=== PATIENT | male | born 1990 | race Caucasian/White ===

== ENCOUNTER 2021-03-31 21:42 | Emergency (ER) | payer BC, SELFPAY ==
[2021-03-31 21:55] VITALS: BP 149/87; RESP 16; TEMP 36.4; O2SAT 84
--- NOTE | 2021-04-01 02:26 | ED.GENADULT ---
HPI - General Adult General Chief complaint: Headache Stated complaint: mouth pain Time Seen by Provider: 04/01/21 01:40 History of Present Illness HPI narrative: Patient is a 30-year-old male with history of MS and trigeminal neuralgia that presents ER with left-sided facial pain consistent with his trigeminal neuralgia pain. Reports he has been having a flare over the last 3 weeks but worsening in the last 1 week. He has been to multiple ERs to receive treatment and is becoming frustrated that there is nothing to be done. Reports he waited at [facility] and was never seen due to such a long wait. He reports he has been taking his home baclofen, gabapentin, and Tegretol that been prescribed by his neurologist who is located in [facility]. Patient is currently living here with a friend because his family disowned him last month. He does report stress from this. He does endorse some depression but no SI. Patient reports he has not been referred for neurologic management of his discomfort. Patient is having no other focal deficits related to his trigeminal neuralgia including slurred speech, muscle spasm, or focal weakness in extremity. Related Data Home Medications Medication Instructions Recorded Confirmed baclofen mg 04/01/21 carbamazepine 04/01/21 gabapentin 04/01/21 hydrocodone-acetaminophen 04/01/21 hydrocodone-acetaminophen 04/01/21 04/01/21 potassium citrate meq PO 04/01/21 Allergies Allergy/AdvReac Type Severity Reaction Status Date / Time No Known Allergies Allergy Verified 04/01/21 01:42 Review of Systems Review of Systems: All systems reviewed & are unremarkable except as noted in HPI and below Constitutional: Constitutional: Denies chills and Denies fever(s) Neurologic: Denies headache(s), Denies focal weakness, Denies numbness and Denies weakness Comments: Shooting pain left face Psychiatric: Psychiatric: Reports depression and Denies suicidal ideation PMFSH Past Medical History Medical History (Updated 04/01/21 @ 02:30 by Kobe Garcia MD) Multiple sclerosis Trigeminal neuralgia Surgical History Surgical History (Updated 04/01/21 @ 02:28 by Kobe Garcia MD) History of inguinal hernia repair Exam Narrative: Exam Narrative: GENERAL: Well-appearing, well-nourished, and in no acute distress. HEAD: Normocephalic, atraumatic. EYES: PERRL and EOMI. ENT: Mucous membranes moist. No pharyngeal erythema or tonsillar exudate, no tonsillar hypertrophy, uvula midline nonedematous. NECK: Supple. CHEST: Clear to auscultation. No respiratory distress. HEART: Regular rate and rhythm. Normal peripheral pulses. NEURO: Facial droop. No slurred speech. Alert and oriented x3. PSYCH: Normal mood and affect. Course Course Emergency Course: We will give IM shot of morphine. Discharge home with the name of neurology here and a small prescription of [place]. Discussed with patient that he would be best served getting neurosurgery referral by his primary care physician for definitive management of trigeminal neuralgia. Medication review shows patient received 8 tabs of [place] on the 03/24. Does not appear he habitually receives narcotic pain medication. Vital Signs Vital signs: Vital Signs Temperature 97.6 F 03/31/21 21:55 Respiratory Rate 16 03/31/21 21:55 Blood Pressure 149/87 H 03/31/21 21:55 Pulse Oximetry 84 L 03/31/21 21:55 Temperature 97.6 F 03/31/21 21:55 Respiratory Rate 16 03/31/21 21:55 Blood Pressure 149/87 H 03/31/21 21:55 Pulse Oximetry 84 L 03/31/21 21:55 Medical Decision Making Vital Signs Vital Signs: Vital Signs Temperature 97.6 F 03/31/21 21:55 Respiratory Rate 16 03/31/21 21:55 Blood Pressure 149/87 H 03/31/21 21:55 Pulse Oximetry 84 L 03/31/21 21:55 Temperature 97.6 F 03/31/21 21:55 Respiratory Rate 16 03/31/21 21:55 Blood Pressure 149/87 H 03/31/21 21:55 Pulse Oximetry 84 L 03/31/21 21:55 Di
[2021-04-01] MEDS: MORPHINE SULFATE (*CRX) 4 MG/ML INJ IM (02:41)
[2021-04-01 03:33] VITALS: BP 156/97; PULSE 76; RESP 12; O2SAT 97
== END 2021-04-01 03:40 | disposition home or self-care (01) ==
PROVIDERS: Emergency Provider Emergency Medicine
DX: G50.0 Trigeminal neuralgia (principal); G35 Multiple sclerosis
CPT/HCPCS: 96372; 99283; J2270

== ENCOUNTER 2021-04-09 07:53 | Emergency (ER) | payer BC, SELFPAY ==
[2021-04-09 08:05] VITALS: BP 156/91; PULSE 90; RESP 16; TEMP 36.2; O2SAT 100
--- NOTE | 2021-04-09 08:20 | ED.GENADULT ---
HPI - General Adult General Chief complaint: Unspecified Stated complaint: trigeminal neuralgia Time Seen by Provider: 04/09/21 08:02 History of Present Illness HPI narrative: Patient is a 30-year-old male with history of MS and trigeminal neuralgia who presents to the ER with left-sided facial pain consistent with his trigeminal neuralgia. Occasionally given some blurring of the vision. He has been taking his home Tegretol, baclofen, and gabapentin. He was recently prescribed [place] for breakthrough pain which she took the last tab of. Reports with the change in weather its caused the pain to flareup again. Reports since his last visit he has been going through the process of transferring paperwork from his primary care doctor Gage Weller to [facility] where he is trying to see a neurologist/neurosurgeon to care for his trigeminal neuralgia. He does not yet have a follow-up appointment scheduled. Related Data Home Medications Medication Instructions Recorded Confirmed baclofen mg 04/01/21 carbamazepine 04/01/21 gabapentin 04/01/21 hydrocodone-acetaminophen 04/01/21 hydrocodone-acetaminophen 04/01/21 04/01/21 potassium citrate meq PO 04/01/21 Allergies Allergy/AdvReac Type Severity Reaction Status Date / Time No Known Allergies Allergy Verified 04/01/21 01:42 Review of Systems Constitutional: Constitutional: Denies chills and Denies fever(s) Musculoskeletal: Musculoskeletal: Denies myalgias, Denies arthralgias and Denies muscle cramps Neurologic: Denies syncope, Denies focal weakness, Denies loss of vision and Reports paresthesias (Left facial pain) PMFSH Past Medical History Medical History (Updated 04/09/21 @ 08:23 by Kobe Garcia MD) Multiple sclerosis Trigeminal neuralgia Surgical History Surgical History (Updated 04/01/21 @ 02:28 by Kobe Garcia MD) History of inguinal hernia repair Exam Narrative: Exam Narrative: GENERAL: Well-appearing, well-nourished, and in no acute distress. HEAD: Normocephalic, atraumatic. EYES: PERRL and EOMI. ENT: Mucous membranes moist. CHEST: Clear to auscultation. No respiratory distress. HEART: Regular rate and rhythm. Normal peripheral pulses. EXTREMITIES: Normal range of motion. No edema. SKIN: Warm, dry, no rash. NEURO: Clear speech, no facial droop. Alert and oriented x3. Course Course Emergency Course: Discussed with the patient given 1 more prescription for [place] but then he would receive no additional prescriptions from the ER. Verbalized understanding. Discharge Plan Discharge Clinical Impression: Left-sided trigeminal neuralgia Patient Disposition: Home, Self-Care Condition: Stable Instructions: Trigeminal Neuralgia (ED) Additional Instructions: Return the ER if you cannot breathe, you cannot swallow, you have focal weakness in an arm or leg, you have additional concerns. Prescriptions: New hydrocodone-acetaminophen 5-325 mg tablet 1 tablet PO Q6H PRN (Reason: pain) Qty: 20 RF: 0 No Action hydrocodone-acetaminophen 5-325 mg tablet RF: 0 baclofen 20 mg tablet RF: 0 carbamazepine 200 mg tablet RF: 0 gabapentin 800 mg tablet RF: 0 hydrocodone-acetaminophen 7.5-325 mg tablet RF: 0 potassium citrate 15 mEq tablet extended release PO RF: 0 hydrocodone-acetaminophen 5-325 mg tablet 1 tablet PO Q6H PRN (Reason: pain) Qty: 20 RF: 0 Follow-up/Referrals: Misbah Haque MD [Physician] - 1 Week PHYSICIAN,[facility] TH[facility]OUGH 12 TEACHER [Primary Care Provider] -
[2021-04-09] MEDS: HYDROcodone/acetaminophen (*CRX) 5-325 MG TABLET 1 TAB PO (08:57)
--- NOTE | 2021-04-09 09:00 | PC.NURSE ---
Pt. reiterating that their disease is called the suicide disease. Pt. was prompted again on questions about suicide and patient is denying any suicidal ideations at this time. ERP is aware.
== END 2021-04-09 09:16 | disposition home or self-care (01) ==
LOC: ANHED 09:02
PROVIDERS: Emergency Provider Emergency Medicine
DX: G50.0 Trigeminal neuralgia (principal)
CPT/HCPCS: 99283; A9270

== ENCOUNTER 2021-11-15 00:40 | Emergency (ER) | payer BC, SELFPAY ==
[2021-11-15 00:45] VITALS: BP 138/82; PULSE 74; RESP 18; TEMP 36.1; O2SAT 99
--- NOTE | 2021-11-15 01:04 | ED.GENADULT ---
HPI - General Adult General Chief complaint: Unspecified Stated complaint: trigeminal neuralgia pain Time Seen by Provider: 11/15/21 00:58 History of Present Illness HPI narrative: Patient 31-year-old gentleman who presents the emergency department with chief complaint of trigeminal neuralgia. The patient reports he has prior history of trigeminal neuralgia and is on oral SSRIs is also been on gabapentin and Tegretol. The patient states that he has seen a neurologist before and reports since the weather change he started having a burning sensation on the right side of his face. Patient reports typically it is on the left side of his face reports that it is worsened with the temperature changes denies nausea vomiting denies fever chills. Related Data Home Medications Medication Instructions Recorded Confirmed baclofen mg 04/01/21 carbamazepine 04/01/21 gabapentin 04/01/21 potassium citrate meq PO 04/01/21 Allergies Allergy/AdvReac Type Severity Reaction Status Date / Time No Known Allergies Allergy Verified 11/15/21 00:48 Review of Systems Review of Systems: A 10 system review of systems was completed on the patient and is negative except for what is stated in the HPI. Nursing and ancillary documentation was reviewed. [facility] Past Medical History Medical History Multiple sclerosis Trigeminal neuralgia Surgical History Surgical History History of inguinal hernia repair Exam Narrative: GENERAL: Well-appearing, well-nourished, and in no acute distress. HEAD: Normocephalic, atraumatic. EYES: PERRLA and EOMI. ENT: Nares clear, no rhinorrhea or epistaxis. Mucous membranes moist. NECK: Supple. CHEST: Clear to auscultation. No respiratory distress. HEART: Regular rate and rhythm. No murmur heard. Normal peripheral pulses. ABDOMEN: Soft, nontender, nondistended, normal active bowel sounds. EXTREMITIES: Normal range of motion. No edema. SKIN: Warm, dry, no rash. NEURO: No focal deficits. Alert and oriented x3. PSYCH: Normal mood and affect. Course Vital Signs Vital signs: Vital Signs Temperature 36.1 C L 11/15/21 00:45 Pulse Rate 74 11/15/21 00:45 Respiratory Rate 18 11/15/21 00:45 Blood Pressure 138/82 11/15/21 00:45 Pulse Oximetry 99 11/15/21 00:45 Temperature 36.1 C L 11/15/21 00:45 Pulse Rate 74 11/15/21 00:45 Respiratory Rate 18 11/15/21 00:45 Blood Pressure 138/82 11/15/21 00:45 Pulse Oximetry 99 11/15/21 00:45 Medical Decision Making Vital Signs Vital Signs: Vital Signs Temperature 36.1 C L 11/15/21 00:45 Pulse Rate 74 11/15/21 00:45 Respiratory Rate 18 11/15/21 00:45 Blood Pressure 138/82 11/15/21 00:45 Pulse Oximetry 99 11/15/21 00:45 Temperature 36.1 C L 11/15/21 00:45 Pulse Rate 74 11/15/21 00:45 Respiratory Rate 18 11/15/21 00:45 Blood Pressure 138/82 11/15/21 00:45 Pulse Oximetry 99 11/15/21 00:45 Discharge Plan Discharge Clinical Impression: Right trigeminal neuralgia Patient Disposition: Home, Self-Care Condition: Stable Instructions: Antibiotic Form, Trigeminal Neuralgia (ED) Prescriptions: New hydrocodone-acetaminophen 5-325 mg tablet 1 tablet PO Q6H PRN (Reason: pain) 3 Days Qty: 12 RF: 0 prednisone 20 mg tablet 40 mg PO DAILY 5 Days Qty: 10 RF: 0 No Action hydrocodone-acetaminophen 5-325 mg tablet 1 tablet PO Q6H PRN (Reason: pain) Qty: 20 RF: 0 baclofen 20 mg tablet RF: 0 carbamazepine 200 mg tablet RF: 0 gabapentin 800 mg tablet RF: 0 potassium citrate 15 mEq tablet extended release PO RF: 0 Follow-up/Referrals: PHYSICIAN,[facility] 1 [facility] 6 TEACHER [Primary Care Provider] - Miles Hanna MD [Physician] - Time of Disposition: :08
[2021-11-15 01:20] VITALS: BP 132/77; PULSE 64; RESP 16; O2SAT 99
[2021-11-15] MEDS: methylPREDNISolone SOD SUCC 125 MG VIAL IM (01:24)
[2021-11-15] MEDS: HYDROcodone/acetaminophen (*CRX) 5-325 MG TABLET 1 TAB PO (01:38)
== END 2021-11-15 01:39 | disposition home or self-care (01) ==
PROVIDERS: Emergency Provider Emergency Medicine
DX: G50.0 Trigeminal neuralgia (principal); G35 Multiple sclerosis
CPT/HCPCS: 96372; 99283; A9270; J2930

== ENCOUNTER 2021-11-23 20:03 | Emergency (ER) | payer BC, SELFPAY ==
[2021-11-23 20:10] VITALS: BP 139/91; PULSE 85; RESP 20; TEMP 36.2; O2SAT 99
--- NOTE | 2021-11-23 21:40 | ED.GENADULT ---
HPI - General Adult General Chief complaint: Unspecified Stated complaint: Neurological issues related to MS Time Seen by Provider: 11/23/21 21:26 History of Present Illness HPI narrative: Patient 31-year-old gentleman who presents the emergency department with chief complaint of electric shocks on his face. Patient reports he has history of MS and also history of trigeminal neuralgia patient was seen in the emergency department about a month ago for similar symptoms was treated with a course of steroids and some [place]. The patient reports that after receiving steroids he felt better but subsequently the symptoms have returned the patient reports he does not have a current neurologist reports his symptoms are worse with movement of his head. Patient denies fever denies chills denies vomiting. The patient denies focal neurological deficit Related Data Home Medications Medication Instructions Recorded Confirmed baclofen mg 04/01/21 carbamazepine 04/01/21 gabapentin 04/01/21 potassium citrate meq PO 04/01/21 Allergies Allergy/AdvReac Type Severity Reaction Status Date / Time No Known Allergies Allergy Verified 11/23/21 20:13 Review of Systems Review of Systems: A 10 system review of systems was completed on the patient and is negative except for what is stated in the HPI. Nursing and ancillary documentation was reviewed. [facility] Past Medical History Medical History Multiple sclerosis Trigeminal neuralgia Surgical History Surgical History History of inguinal hernia repair Exam Narrative: GENERAL: Well-appearing, well-nourished, and in no acute distress. HEAD: Normocephalic, atraumatic. EYES: PERRLA and EOMI. ENT: Nares clear, no rhinorrhea or epistaxis. Mucous membranes moist. NECK: Supple. CHEST: Clear to auscultation. No respiratory distress. HEART: Regular rate and rhythm. No murmur heard. Normal peripheral pulses. ABDOMEN: Soft, nontender, nondistended, normal active bowel sounds. EXTREMITIES: Normal range of motion. No edema. SKIN: Warm, dry, no rash. NEURO: No focal deficits. Alert and oriented x3. PSYCH: Normal mood and affect. Course Vital Signs Vital signs: Vital Signs Temperature 36.2 C L 11/23/21 20:10 Pulse Rate 85 11/23/21 20:10 Respiratory Rate 20 01/23/22 20:10 Blood Pressure 139/91 H 11/23/21 20:10 Pulse Oximetry 99 11/23/21 20:10 Temperature 36.2 C L 11/23/21 20:10 Pulse Rate 85 11/23/21 20:10 Respiratory Rate 11/23/21 20:10 Blood Pressure 139/91 H 11/23/21 20:10 Pulse Oximetry 99 11/23/21 20:10 Medical Decision Making Vital Signs Vital Signs: Vital Signs Temperature 36.2 C L 11/23/21 20:10 Pulse Rate 85 11/23/21 20:10 Respiratory Rate 11/23/21 20:10 Blood Pressure 139/91 H 11/23/21 20:10 Pulse Oximetry 99 11/23/21 20:10 Temperature 36.2 C L 11/23/21 20:10 Pulse Rate 85 11/23/21 20:10 Respiratory Rate 11/23/21 20:10 Blood Pressure 139/91 H 11/23/21 20:10 Pulse Oximetry 99 11/23/21 20:10 Discharge Plan Discharge Clinical Impression: Trigeminal neuralgia Patient Disposition: Home, Self-Care Condition: Stable Instructions: Antibiotic Form, Trigeminal Neuralgia (ED) Additional Instructions: Please follow-up with a neurologist as soon as possible. Prescriptions: New prednisone 20 mg tablet 40 mg PO DAILY 7 Days Qty: 14 RF: 0 No Action hydrocodone-acetaminophen 5-325 mg tablet 1 tablet PO Q6H PRN (Reason: pain) Qty: 20 RF: 0 baclofen 20 mg tablet RF: 0 carbamazepine 200 mg tablet RF: 0 gabapentin 800 mg tablet RF: 0 potassium citrate 15 mEq tablet extended release PO RF: 0 hydrocodone-acetaminophen 5-325 mg tablet 1 tablet PO Q6H PRN (Reason: pain) 3 Days Qty: 12 RF: 0 prednisone 20 m
[2021-11-23] MEDS: methylPREDNISolone SOD SUCC 125 MG VIAL IM (22:17)
[2021-11-23] MEDS: HYDROcodone/acetaminophen (*CRX) 5-325 MG TABLET 1 TAB PO (22:17)
== END 2021-11-23 22:40 | disposition home or self-care (01) ==
LOC: ANHED 22:04
PROVIDERS: Emergency Provider Emergency Medicine
DX: G50.0 Trigeminal neuralgia (principal); G35 Multiple sclerosis
CPT/HCPCS: 96372; 99283; A9270; J2930

== ENCOUNTER 2022-02-12 18:33 | Emergency (ER) | payer BC, SELFPAY ==
[2022-02-12 18:40] VITALS: BP 149/90; PULSE 80; RESP 18; TEMP 36.6; O2SAT 97
--- NOTE | 2022-02-12 18:56 | ED.GENADULT ---
HPI - General Adult General Chief complaint: Unspecified Stated complaint: severe pain Time Seen by Provider: 02/12/22 18:56 Source: patient Mode of arrival: ambulatory Limitations: no limitations History of Present Illness HPI narrative: this is a 31-year-old gentleman with a history trigeminal neuralgia currently having a painful episode affecting the left side of his face is currently on Tegretol and was recently on a steroid for bronchitis about 2 to 3 weeks ago. Currently there is no fever chills no blurry vision no headache no neck pain no chest pain no shortness of breath. Onset (ago): day(s) Location: face Radiation: non-radiation Severity: severe Severity scale (1-10): 10 Quality: burning and stabbing Pain Consistency: constant Relieving factors: none Related Data Home Medications Medication Instructions Recorded Confirmed carbamazepine 200 mg PO AC 04/01/21 02/12/22 gabapentin 04/01/21 duloxetine 60 mg PO DAILY 02/12/22 02/12/22 Allergies Allergy/AdvReac Type Severity Reaction Status Date / Time No Known Allergies Allergy Verified 02/12/22 18:56 Review of Systems Review of Systems: All systems reviewed & are unremarkable except as noted in HPI and below PMFSH Past Medical History Medical History Multiple sclerosis Trigeminal neuralgia Surgical History Surgical History History of inguinal hernia repair Exam Const: General: cooperative, healthy appearing, comfortable, no acute distress and well developed HENMT: Head: normal to inspection Head images: 1. Tender left side of face with palpation Ears: hearing grossly normal bilaterally General nose exam: Normal external nose present Face and sinus: normal facial exam Mouth: Yes Normal oral and palatal mucosa present Throat: posterior oropharynx normal Eyes: General: appearance normal, both eyes and all related structures Neck: Neck: normal visual inspection, full ROM, no lymphadenopathy and no meningeal signs Chest: Chest palpation & inspection: normal inspection of the chest Resp: Effort & Inspection: normal respiratory effort and able to speak in complete sentences Cardio: Jugular venous distension: no JVD Palpation: normal PMI Rate: regular rate Rhythm: regular rhythm Back/Spine/Pelvis: Back: no CVA tenderness Cervical Spine: normal cervical lordosis Skin: General skin exam: normal color and no rashes or lesions noted Neuro: General: oriented to person, oriented to place and oriented to time Psych: Appearance: grossly normal and well kempt Course Course Emergency Course: patient received a dose of IM morphine 4mg along with IM Depo-Medrol 80mg with moderate relief of his symptoms. Vital Signs Vital signs: Vital Signs Temperature 36.6 C 02/12/22 18:40 Pulse Rate 80 02/12/22 18:40 Respiratory Rate 18 02/12/22 18:40 Blood Pressure 149/90 H 02/12/22 18:40 Pulse Oximetry 97 02/12/22 18:40 Temperature 36.6 C 02/12/22 18:40 Pulse Rate 80 02/12/22 18:40 Respiratory Rate 18 02/12/22 18:40 Blood Pressure 149/90 H 02/12/22 18:40 Pulse Oximetry 97 02/12/22 18:40 Medical Decision Making Vital Signs Vital Signs: Vital Signs Temperature 36.6 C 02/12/22 18:40 Pulse Rate 80 02/12/22 18:40 Respiratory Rate 18 02/12/22 18:40 Blood Pressure 149/90 H 02/12/22 18:40 Pulse Oximetry 97 02/12/22 18:40 Temperature 36.6 C 02/12/22 18:40 Pulse Rate 80 02/12/22 18:40 Respiratory Rate 18 02/12/22 18:40 Blood Pressure 149/90 H 02/12/22 18:40 Pulse Oximetry 97 02/12/22 18:40 Critical Care Time Critical Care Time Critical Care Time: No Discharge Plan Discharge Clinical Impression: Trigeminal neuralgia Patient Disposition: Home, Self-Care Condition: Stable Instructions: Antibiotic Form Additional Instructions: take medicine
[2022-02-12] MEDS: methylPREDNISolone ACETATE 40 MG/ML VIAL 80 MG IM (19:13)
[2022-02-12] MEDS: MORPHINE SULFATE (*CRX) 4 MG/ML INJ IM (19:16)
[2022-02-12 19:43] VITALS: TEMP 36.4
[2022-02-12 19:44] VITALS: BP 154/98; PULSE 72; RESP 18; TEMP 36.4; O2SAT 98
== END 2022-02-12 19:48 | disposition home or self-care (01) ==
PROVIDERS: Emergency Provider Emergency Medicine
DX: G50.0 Trigeminal neuralgia (principal)
CPT/HCPCS: 96372; 99284; J1030; J2270

== ENCOUNTER 2022-05-04 10:49 | Emergency (ER) | payer BC, SELFPAY ==
[2022-05-04 11:03] VITALS: BP 130/88; PULSE 73; RESP 16; TEMP 36.9; O2SAT 95
--- NOTE | 2022-05-04 11:12 | ED.GENADULT ---
HPI - General Adult General Chief complaint: Unspecified Stated complaint: FACIAL PAIN Source: patient Mode of arrival: ambulatory Limitations: no limitations History of Present Illness HPI narrative: this is a [age]-year-old male that presents with a history of trigeminal neuralgia is currently on medication, but is having intense pain left facial area no new symptoms no blurry vision no fever chills no shortness of breath no nausea vomiting no chest pain. Onset (ago): day(s) Location: face Radiation: non-radiation Severity: moderate Severity scale (1-10): 7 Quality: burning Pain Consistency: constant Related Data Home Medications Medication Instructions Recorded Confirmed carbamazepine 200 mg tablet 200 mg PO AC 04/01/21 05/04/22 gabapentin 800 mg tablet 800 mg PO DAILY 04/01/21 05/04/22 duloxetine 60 mg capsule,delayed 60 mg PO DAILY 02/12/22 05/04/22 release Allergies Allergy/AdvReac Type Severity Reaction Status Date / Time No Known Allergies Allergy Verified 05/04/22 11:07 Review of Systems Review of Systems: All systems reviewed & are unremarkable except as noted in HPI and below Eyes: Eyes: Reports as per HPI ENT: Reports system reviewed and no additional complaints, except as documented Cardiovascular: Cardiovascular: Reports as per HPI [facility] Past Medical History Medical History Multiple sclerosis Trigeminal neuralgia Surgical History Surgical History History of inguinal hernia repair Exam Const: General: cooperative, healthy appearing, comfortable and no acute distress HENMT: Head: normal to inspection Ears: hearing grossly normal bilaterally General nose exam: Normal external nose present Face and sinus: other ( Left facial droop) Mouth: Yes Normal oral and palatal mucosa present Teeth and gingiva: dentition normal Throat: posterior oropharynx normal Eyes: General: appearance normal, both eyes and all related structures Periorbital: periorbital findings normal Eyelids: eyelids normal Neck: Neck: normal visual inspection, full ROM, no lymphadenopathy and no meningeal signs Chest: Chest palpation & inspection: normal inspection of the chest Resp: Effort & Inspection: normal respiratory effort and able to speak in complete sentences Cardio: Jugular venous distension: no JVD Palpation: normal PMI Rate: regular rate Rhythm: regular rhythm GI: Inspection: normal to inspection Auscultation: normal bowel sounds Urinary Catheter: Urinary Catheter: patent and draining Back/Spine/Pelvis: Cervical Spine: normal cervical lordosis Skin: General skin exam: normal color and no rashes or lesions noted Neuro: General: oriented to person, oriented to place and oriented to time Extrem: General: normal to inspection, full ROM and capillary refill normal Psych: Appearance: grossly normal and well kempt Course Course Emergency Course: patient received a shot of Toradol and Depo-Medrol. Vital Signs Vital signs: Vital Signs Temperature 36.9 C 05/04/22 11:03 Pulse Rate 73 05/04/22 11:03 Respiratory Rate 16 05/04/22 11:03 Blood Pressure 130/88 05/04/22 11:03 Pulse Oximetry 95 05/04/22 11:03 Oxygen Delivery Room Air 05/04/22 11:03 Temperature 36.9 C 05/04/22 11:03 Pulse Rate 73 05/04/22 11:03 Respiratory Rate 16 05/04/22 11:03 Blood Pressure 130/88 05/04/22 11:03 Pulse Oximetry 95 05/04/22 11:03 Oxygen Delivery Room Air 05/04/22 11:03 Medical Decision Making Vital Signs Vital Signs: Vital Signs Temperature 36.9 C 05/04/22 11:03 Pulse Rate 73 05/04/22 11:03 Respiratory Rate 16 05/04/22 11:03 Blood Pressure 130/88 05/04/22 11:03 Pulse Oximetry 95 05/04/22 11:03 Oxygen Delivery Room Air 05/04/22 11:03 Temperature 36.9 C 05/04/22 11:03 Pulse Rate 73 05/04/22 11:03 Respiratory Ra
[2022-05-04] MEDS: KETOROLAC (*BKC) 60 MG/2 ML VIAL IM (11:23)
[2022-05-04] MEDS: methylPREDNISolone ACETATE 40 MG/ML VIAL 80 MG IM (11:24)
[2022-05-04 11:29] VITALS: BP 130/88; PULSE 73; RESP 16; TEMP 36.9; O2SAT 95
== END 2022-05-04 11:32 | disposition home or self-care (01) ==
PROVIDERS: Emergency Provider Emergency Medicine
DX: G50.0 Trigeminal neuralgia (principal)
CPT/HCPCS: 96372; 99284; J1030; J1885

== ENCOUNTER 2022-05-27 10:23 | Outpatient (CLI) | payer BC, SELFPAY ==
[2022-05-27 10:33] LABS: Hematocrit 46.8 % (40.0-54.0); Hemoglobin 15.9 g/dL (14.0-18.0); Mean Corpuscular Hemoglobin 30.8 pg (27.0-31.0); Mean Corpuscular Volume 90.7 fL (78.0-102.0); Mean Platelet Volume 11.3 fl (8.7-11.0); Platelet Count Result 228 K/mm3 (150-420); Red Blood Count 5.16 M/mm3 (4.70-6.10); Red Cell Distribution Width 13.5 % (11.6-14.4); White Blood Count 8.8 K/mm3 (4.8-10.8)
[2022-05-27 11:27] LABS: Alanine Aminotransferase 45 U/L (16-63); Albumin Level 4.3 g/dL (3.4-5.0); Alkaline Phosphatase 108 U/L (46-116); Anion Gap 7 mmol/L (8-16); Aspartate Amino Transferase 18 U/L (15-37); Bilirubin,Total 0.4 mg/dL (0.00-1.00); Blood Urea Nitrogen 18 mg/dL (7-18); Calcium 9.3 mg/dL (8.5-10.1); Carbon Dioxide 27 mmol/L (21-32); Chloride 106 mmol/L (98-108); Estimated Glomerular Filt Rate > 60; Folic Acid 19.4 ng/mL (8.6->20); Glucose 104 mg/dL (70-99); Magnesium 2.2 mg/dL (1.8-2.4); Osmolality Calculated 291 mOsm/kg (285-295); Potassium 4.2 mmol/L (3.5-5.1); Sodium 140 mmol/L (136-145); Total Protein 7.1 g/dL (6.4-8.2); Vitamin B12 835 pg/mL (193-986)
[2022-05-27 11:34] LABS: Thyroid Stimulating Hormone Reflex 0.91 u/IU/mL (0.36-3.74)
== END 2022-05-27 10:24 | disposition home or self-care (01) ==
LOC: CHSLAB 10:24
PROVIDERS: PCP Family Medicine; Visit Provider Family Medicine
DX: G35 Multiple sclerosis (principal); E11.9 Type 2 diabetes mellitus without complications; E53.8 Deficiency of other specified B group vitamins
CPT/HCPCS: 36415; 80053; 82607; 82746; 83735; 84443; 85027

== ENCOUNTER 2022-05-31 15:53 | Emergency (ER) | payer BC, SELFPAY ==
[2022-05-31 16:01] VITALS: BP 128/84; PULSE 80; RESP 18; TEMP 36.4; O2SAT 97
--- NOTE | 2022-05-31 16:29 | ED.DENTAL ---
HPI - Dental/Oral General Chief complaint: Dental/Oral Stated complaint: broken tooth-pain Time Seen by Provider: 05/31/22 15:57 Source: patient and RN notes reviewed Mode of arrival: ambulatory Limitations: no limitations History of Present Illness HPI Narrative: left upper and lower molar toothaches x worse this PM. Complaint: tooth pain Location: Tooth # (16, 17) Onset (ago): day(s) (1) Duration: constant Severity: mild Severity scale (1-10): 4 Relieving factors: nothing Exacerbating factors: chewing Context: history of dental caries Associated symptoms: other (known trigeminal neuralgia on Cymbalta) Treatment prior to arrival: none Related Data Home Medications Medication Instructions Recorded Confirmed duloxetine 60 mg capsule,delayed 60 mg PO DAILY 02/12/22 05/31/22 release aripiprazole 5 mg tablet (Abilify) 5 mg PO QHS 05/27/22 05/31/22 Allergies Allergy/AdvReac Type Severity Reaction Status Date / Time No Known Allergies Allergy Verified 05/27/22 08:17 Review of Systems Review of Systems: All systems reviewed & are unremarkable except as noted in HPI and below Constitutional: Constitutional: Reports no additional constitutional complaints Eyes: Eyes: Reports no additional eye complaints ENT: Reports system reviewed and no additional complaints, except as documented Comments: toothache Cardiovascular: Cardiovascular: Reports no additional cardiovascular complaints Respiratory: Respiratory: Reports no additional respiratory complaints Gastrointestinal: Gastrointestinal: Reports no additional gastrointestinal complaints Musculoskeletal: Musculoskeletal: Reports no additional musculoskeletal complaints Integumentary/Breasts: Skin/Breast: Reports system reviewed and no additional complaints, except as docu Neurologic: Reports system reviewed and no additional complaints, except as documented Psychiatric: Psychiatric: Reports no additional psychiatric complaints Endocrine: Endocrine: Reports no additional endocrine complaints Hematologic/Lymphatic: Hematologic/Lymphatic: Reports no additional hematologic/lymphatic complaints Allergic/Immunologic: Allergic/Immunologic: Reports no additional allergic/immunologic complaints [facility] Past Medical History Medical History Multiple sclerosis Toothache Trigeminal neuralgia Surgical History Surgical History History of inguinal hernia repair Social History Social History Smoking packs per day: 1 Smoking cigarettes per day: 20.0 Years smoked: 15 Smoking pack-years: 15.00 Smoking status: Current every day smoker Tobacco type: cigarettes Exam Const: General: healthy appearing and no acute distress Nutritional Appearance: well nourished Orientation/consciousness: patient oriented x3 Limitations: no limitations HENMT: Head: normal to inspection Ears: external ears normal, TM's normal bilaterally and EAC's normal General nose exam: Normal external nose present and Normal nares present Face and sinus: normal facial exam and sinuses nontender Mouth: Yes Normal oral and palatal mucosa present and Yes moist mucous membranes Teeth and gingiva: abnormal tooth and associated gingiva (multiple carious teeth. no acute gum redness, swelling or pus.) Throat: posterior oropharynx normal Eyes: Conjunctivae: conjunctivae normal Pupils: Equal, round and reactive pupils present EOM: EOMs intact bilaterally Neck: Neck: normal visual inspection, no lymphadenopathy and no meningeal signs Chest: Chest palpation & inspection: normal inspection of the chest Resp: Effort & Inspection: normal respiratory effort Auscultation: clear to auscultation bilaterally Cardio: Rate: regular rate Rhythm: regular rhythm GI: GI Palp: Yes Soft to palpation and No Tenderness to palpatio
[2022-05-31] MEDS: KETOROLAC (*BKC) 60 MG/2 ML VIAL IM (16:42)
[2022-05-31] MEDS: cefTRIAXone 1 GM, LIDOCAINE HCL 1% LOCAL INJ 2.1 ML IM (16:42)
[2022-05-31 16:46] VITALS: BP 143/78; PULSE 78; RESP 20; TEMP 36.5; O2SAT 94
== END 2022-05-31 17:00 | disposition home or self-care (01) ==
PROVIDERS: Emergency Provider Emergency Medicine; PCP Family Medicine
DX: K08.89 Other specified disorders of teeth and supporting structures (principal); K02.9 Dental caries, unspecified
CPT/HCPCS: 96372; 99284; J0696; J1885

== ENCOUNTER 2022-07-11 17:49 | Emergency (ER) | payer BC, SELFPAY ==
--- NOTE | ~2022-07-11 | CT_ITS ---
EXAMINATION: CT abdomen pelvis wo con DATE: 07/11/2022 18:35 INDICATION: LOWER ABD/GROIN PAIN, HEMATURIA TECHNIQUE: Computed tomography (CT) of the abdomen and pelvis was performed without intravenous contr ast. Automated exposure control and iterative reconstruction technique were employed. The dose-length product was 1346.91 mGy-cm. COMPARISON: 07/22/2005. FINDINGS: Lower thorax: Unremarkable Liver: Normal. Biliary/Gallbladder: Gallbladder is normal. No bile duct dilation. Pancreas: No mass or duct dilation. Spleen: Normal. Adrenals:No mass. Kidneys: Bilateral nonobstructive renal calculi. 4 mm calcification in the right UPJ. Mild right pelv iectasis. GI tract: No small or large bowel dilation. Normal appendix. Mesentery/Peritoneum: No ascites, mass, or free air. Retroperitoneum: No mass. Pelvis: Pelvic organs are within normal limits. Soft Tissues: Small uncomplicated fat-containing umbilical and left inguinal hernias Bones: No acute osseous finding. IMPRESSION: 4 mm right UPJ stone causing mild right obstructive uropathy. Reviewed, dictated and finalized at location K.
[2022-07-11 17:55] VITALS: BP 140/79; PULSE 74; RESP 18; TEMP 35.9; O2SAT 98
[2022-07-11] MEDS: SODIUM CHLORIDE 0.9% IV 1,000 ML 999 ML IV CONT (18:34)
[2022-07-11] MEDS: KETOROLAC 30 MG/ML VIAL (*BKC) IV PUSH (18:35)
[2022-07-11 18:45] LABS: Basophils Absolute Auto 0.05 K/mm3 (0.00-0.10); Basophils Percent Auto 0.5 % (0.0-1.0); Eosinophils Absolute Auto 0.13 K/mm3 (0.02-0.50); Eosinophils Percent Auto 1.3 % (1.0-6.0); Hematocrit 46.5 % (40.0-54.0); Immature Granulocyte Absolute 0.03 K/mm3 (0.00-0.00); Immature Granulocyte Percent A 0.3 % (0.0-0.0); Lymphocytes Absolute Auto 2.47 K/mm3 (1.10-4.50); Lymphocytes Percent Auto 25.4 % (18.0-42.0); Mean Corpuscular HGB Conc 34.4 g/dL (32.0-36.0); Mean Corpuscular Hemoglobin 31.1 pg (27.0-31.0); Mean Corpuscular Volume 90.3 fL (78.0-102.0); Mean Platelet Volume 11.8 fl (8.7-11.0); Monocytes Absolute Auto 0.86 K/mm3 (0.10-0.90); Monocytes Percent Auto 8.8 % (2.0-11.0); Neutrophils Absolute Auto 6.2 K/mm3 (1.7-7.2); Neutrophils Percent Auto 63.7 % (50.0-70.0); Platelet Count Result 229 K/mm3 (150-420); Red Blood Count 5.15 M/mm3 (4.70-6.10); Red Cell Distribution Width 13.8 % (11.6-14.4); White Blood Count 9.7 K/mm3 (4.8-10.8)
[2022-07-11 18:47] LABS: Add Urine Microscopic? YES; Bilirubin Urine Negative (Negative); Blood Urine 3+ (Negative); Color Urine Red (Yellow); Glucose Urine UA Negative (Negative); Ketones Urine Negative (Negative); Leukocyte Esterase Ur Negative (Negative); Nitrate Urine Negative (Negative); Protein Urine 1+ (Negative); pH Urine 6.5 (5.0-8.0)
--- NOTE | 2022-07-11 18:51 | ED.ABDPAIN ---
HPI - Abdominal Pain General Chief Complaint: Urogenital-Male Stated Complaint: blood in urine/pain Source: patient Mode of arrival: ambulatory Limitations: no limitations History of Present Illness HPI narrative: this is a 32-year-old gentleman with history of kidney stones present with some suprapubic and right groin pain it started earlier today has been having episodes of hematuria currently no fever chills no flank pain no nausea or vomiting, patient rates his pain at about 8/10. There is no diarrhea or constipation no fever chills no shortness of breath or chest pain. MD elicited complaint: abdominal pain Severity: moderate Pain scale (0-10): 8 Quality: sharp Radiation: suprapubic Migration to: no migration Exacerbating factors: nothing Relieving factors: nothing Related Data Home Medications Medication Instructions Recorded Confirmed duloxetine 60 mg capsule,delayed 60 mg PO DAILY 07/11/22 07/11/22 release Allergies Allergy/AdvReac Type Severity Reaction Status Date / Time No Known Allergies Allergy Verified 05/27/22 08:17 Review of Systems Review of Systems: All systems reviewed & are unremarkable except as noted in HPI and below PMFSH Past Medical History Medical History Multiple sclerosis Toothache Trigeminal neuralgia Surgical History Surgical History History of inguinal hernia repair Social History Social History Smoking packs per day: 1 Smoking cigarettes per day: 20.0 Years smoked: 15 Smoking pack-years: 15.00 Smoking status: Current every day smoker Tobacco type: cigarettes Exam Const: General: healthy appearing and no acute distress Limitations: no limitations HENMT: Head: normal to inspection Face and sinus: normal facial exam Mouth: Yes Normal oral and palatal mucosa present Eyes: Conjunctivae: conjunctivae normal EOM: EOMs intact bilaterally Direct Ophthalmoscopy: no photophobia Neck: Neck: normal visual inspection, no lymphadenopathy and no meningeal signs Chest: Chest palpation & inspection: normal inspection of the chest Resp: Effort & Inspection: normal respiratory effort Auscultation: clear to auscultation bilaterally Cardio: Rate: regular rate Rhythm: regular rhythm GI: GI Palp: Yes Soft to palpation and Yes Tenderness to palpation present (GI) Auscultation: normal bowel sounds Urinary Catheter: Urinary Catheter: urine red Back/Spine/Pelvis: Back: no CVA tenderness Skin: General skin exam: normal color Rashes: no rashes Neuro: General: patient oriented x3, moves all extremities, no meningeal signs and no focal motor deficits Extrem: General: normal to inspection, no clubbing, cyanosis or edema and no pedal edema Psych: Mental Status: mental status grossly normal Affect: normal affect Attitude: cooperative Course Course Emergency Course: CT scan reviewed with patient and shows a 4mm stone at the UPJ causing mild obstruction, patient received IV fluids and IV Toradol and reassessment patient's symptoms have improved. Labs reviewed and UA reviewed with patient. Vital Signs Vital signs: Vital Signs Temperature 35.9 C L 07/11/22 17:55 Pulse Rate 74 07/11/22 17:55 Respiratory Rate 18 07/11/22 17:55 Blood Pressure 140/79 07/11/22 17:55 Pulse Oximetry 98 07/11/22 17:55 Oxygen Delivery Room Air 07/11/22 17:55 Temperature 35.9 C L 07/11/22 17:55 Pulse Rate 74 07/11/22 17:55 Respiratory Rate 18 07/11/22 17:55 Blood Pressure 140/79 07/11/22 17:55 Pulse Oximetry 98 07/11/22 17:55 Oxygen Delivery Room Air 07/11/22 17:55 MDM - Abdominal Pain Lab Data Result diagrams: 07/11/22 18:40 07/11/22 18:40 Labs: Lab Results 07/11/22 07/11/22 07/11/22 Range/Units 18:40 18:40 18:40 WBC 9.7 (4
[2022-07-11 18:52] LABS: Appearance Urine Cloudy (Clear)
[2022-07-11 18:53] LABS: RBC Urine >75 /hpf (0-2)
[2022-07-11 19:02] LABS: Alanine Aminotransferase 59 U/L (16-63); Albumin Level 4.1 g/dL (3.4-5.0); Alkaline Phosphatase 105 U/L (46-116); Anion Gap 9 mmol/L (8-16); Aspartate Amino Transferase 24 U/L (15-37); Bilirubin,Total 0.5 mg/dL (0.00-1.00); Blood Urea Nitrogen 17 mg/dL (7-18); Carbon Dioxide 27 mmol/L (21-32); Chloride 102 mmol/L (98-108); Estimated CRCL calculation 100 ml/min; Estimated Glomerular Filt Rate > 60; Glucose 89 mg/dL (70-99); Lipase 105 U/L (73-393); Osmolality Calculated 286 mOsm/kg (285-295); Potassium 3.7 mmol/L (3.5-5.1); Sodium 138 mmol/L (136-145); Total Protein 7.1 g/dL (6.4-8.2); Troponin I 7.4 ng/L (0.00-60.4)
[2022-07-11 19:03] LABS: Prothrombin Time 10.5 Seconds (9.50-12.10)
[2022-07-11 19:25] VITALS: BP 125/67; PULSE 63; RESP 16; TEMP 36.6; O2SAT 99
[2022-07-11] MEDS: MORPHINE SULFATE (*CRX) 4 MG/ML INJ IV PUSH (19:25)
== END 2022-07-11 19:40 | disposition home or self-care (01) ==
PROVIDERS: Emergency Provider Emergency Medicine; PCP Family Medicine
DX: N20.1 Calculus of ureter (principal)
CPT/HCPCS: 36415; 74176; 80053; 81001; 83605; 83690; 84484; 85025; 85610; 85730; 96361; 96374; 96375; 99284; J1885; J2270; J7030

== ENCOUNTER 2022-07-20 17:15 | Outpatient (CLI) | payer BC, SELFPAY | END 2022-07-20 17:16 | disposition home or self-care (01) | LOC: CHSLAB 17:18 | PROVIDERS: PCP Family Medicine; Visit Provider Family Medicine | DX: N20.9 Urinary calculus, unspecified (principal) | CPT/HCPCS: 82365; 88300 ==

== ENCOUNTER 2023-12-05 08:39 | Emergency (ER) | payer BC, SELFPAY ==
[2023-12-05 08:50] VITALS: BP 140/95; PULSE 79; RESP 16; TEMP 36.4; O2SAT 98
--- NOTE | 2023-12-05 09:13 | ED.GENADULT ---
HPI - General Adult General Chief complaint: Eye Problems Stated complaint: Left Eye Irritation Source: patient Mode of arrival: ambulatory Limitations: no limitations History of Present Illness HPI narrative: Patient presents for evaluation of left eye irritation. Symptom onset yesterday. He was cutting a tree days and a branch hit him in the eye. He was not wearing protective eyewear at the time of the event. He reports blurred vision, tearing, sensation of foreign body in eye, and difficulty with depth perception. He is not diabetic. He has an underlying hx of MS and is on immunosuppressive therapy. Date of last tetanus unknown. Related Data Home Medications Medication Instructions Recorded Confirmed dextroamphetamine-amphetamine 30 30 mg PO DAILY 12/05/23 12/05/23 mg tablet pregabalin 100 mg capsule 100 mg PO DIRECTED 12/05/23 12/05/23 Allergies Allergy/AdvReac Type Severity Reaction Status Date / Time No Known Allergies Allergy Verified 12/05/23 08:45 Review of Systems Review of Systems: CONSTITUTIONAL: Denies fever, chills, or sweats. EYES: reports sensation of foreign body in the left eye with associated tearing, blurred vision and problems with depth perception ENT: Denies rhinorrhea, congestion, sore throat, or otalgia. CARDIOVASCULAR: Denies chest pain, palpitations, or edema. RESPIRATORY: Denies cough or dyspnea. GASTROINTESTINAL: Denies abdominal pain, nausea, vomiting, or diarrhea. GENITOURINARY: Denies dysuria or hematuria. SKIN: Denies rash or itching. MUSCULOSKELETAL: Denies back pain, joint pain, or myalgia. NEUROLOGIC: Denies headache, numbness, dizziness, or weakness. PSYCHIATRIC: Denies anxiety or depression. [facility] Past Medical History Medical History Multiple sclerosis Toothache Trigeminal neuralgia Surgical History Surgical History History of inguinal hernia repair Family History Family History Mother Family history non-contributory Social History Social History Smoking packs per day: 1 Smoking cigarettes per day: 20.0 Years smoked: 15 Smoking pack-years: 15.00 Smoking status: Former smoker Tobacco type: cigarettes Substance use: never Living arrangements: with family Gender identity (if verbalized by the patient): Male Spiritual care concerns: No Exam Narrative: GENERAL: Well-appearing, well-nourished, and in no acute distress. HEAD: Normocephalic, atraumatic. EYES: PERRLA and EOMI. there is an area of dye uptake noted at the 12 o'clock position overlying the iris of the left eye. There is another area of dye uptake noted at the 8 o'clock position of the sclera of left eye when evaluated with fluorescein and Wood's lamp evaluation. I do not appreciate their presence of any foreign body. ENT: Nares clear, no rhinorrhea or epistaxis. Mucous membranes moist. Oropharynx without tonsillar hypertrophy exudate or other lesions. Bilateral TMs pearly aaron nonbulging NECK: Supple. No adenopathy or masses. No carotid bruits or JVD CHEST: Clear to auscultation. No respiratory distress. No wheezes rales or rhonchi HEART: Regular rate and rhythm. No murmur heard. Normal peripheral pulses. ABDOMEN: Soft, nontender, nondistended, normal active bowel sounds. EXTREMITIES: Normal range of motion. No edema. SKIN: Warm, dry, no rash. NEURO: No focal deficits. Alert and oriented x3. PSYCH: Normal mood and affect. Course Course Emergency Course: this is a 33-year-old male who presented for evaluation of left eye irritation following an injury yesterday. He has evidence of 2 corneal abrasions. He will be discharged with erythromycin. Was updated on his tetanus while here. He should follow up with primary ca
[2023-12-05] MEDS: TETANUS,DIPHTHERIA,AC PERTUSSIS ADULT (0.5 ML) BOOSTRIX IM (09:15)
== END 2023-12-05 09:28 | disposition home or self-care (01) ==
PROVIDERS: Emergency Provider Nurse Practitioner
DX: S05.02XA Injury of conjunctiva and corneal abrasion without foreign body, left eye, initial encounter (principal); W22.8XXA Striking against or struck by other objects, initial encounter; Z23 Encounter for immunization; G35 Multiple sclerosis; Z87.891 Personal history of nicotine dependence
CPT/HCPCS: 90471; 90715; 99213; A9270; G0463

== ENCOUNTER 2023-12-22 16:55 | Emergency (ER) | payer BC, SELFPAY ==
[2023-12-22 17:11] VITALS: BP 127/76; PULSE 94; RESP 16; TEMP 36.3; O2SAT 100
--- NOTE | 2023-12-22 17:14 | ED.EAR ---
HPI - Ear Problem General Chief complaint: Ear Stated complaint: UTI Source: patient, RN notes reviewed and old records reviewed Mode of arrival: ambulatory Limitations: no limitations History of Present Illness HPI Narrative: 33-year-old male patient presents to [facility] with complaints of left earache that started 1-3 days ago. Patient has not taken anything for symptoms. Patient denies any other symptoms. Related Data Home Medications Medication Instructions Recorded Confirmed dextroamphetamine-amphetamine 30 30 mg PO DAILY 12/05/23 12/22/23 mg tablet pregabalin 100 mg capsule 100 mg PO DIRECTED 12/05/23 12/22/23 Allergies Allergy/AdvReac Type Severity Reaction Status Date / Time No Known Allergies Allergy Verified 12/22/23 16:57 Review of Systems Constitutional: Constitutional: Reports no additional constitutional complaints, Denies body ache(s), Denies chills, Denies fatigue, Denies fever(s) and Denies headache(s) Eyes: Eyes: Reports no additional eye complaints and Denies blurry vision ENT: Reports system reviewed and no additional complaints, except as documented, Denies vertigo, Denies dizziness, Denies ear discharge, Reports otalgia, Denies facial pain, Denies headache(s), Denies nasal congestion, Denies nasal discharge, Denies sinus pain, Denies sinus pressure and Denies sore throat Cardiovascular: Cardiovascular: Reports no additional cardiovascular complaints, Denies chest pain, Denies chest pain at rest, Denies rapid heart rate and Denies dyspnea Respiratory: Respiratory: Reports no additional respiratory complaints, Denies chest congestion, Denies cough, Denies pain on inspiration, Denies pain with cough and Denies dyspnea Gastrointestinal: Gastrointestinal: Denies abdominal pain, Denies diarrhea, Denies nausea and Denies vomiting Integumentary/Breasts: Skin/Breast: Denies rash Neurologic: Reports system reviewed and no additional complaints, except as documented, Denies vertigo, Denies dizziness and Denies headache(s) Endocrine: Endocrine: Denies fatigue [facility] Past Medical History Medical History Multiple sclerosis Toothache Trigeminal neuralgia Surgical History Surgical History History of inguinal hernia repair Family History Family History Mother Family history non-contributory Social History Social History Smoking packs per day: 1 Smoking cigarettes per day: 20.0 Years smoked: 15 Smoking pack-years: 15.00 Smoking status: Former smoker Tobacco type: cigarettes Substance use: never Living arrangements: with family Gender identity (if verbalized by the patient): Male Spiritual care concerns: No Comments At the time of my signature, I reviewed and agree with the nursing past medical, surgical, social, and family history. There is no relevant family history pertinent to the patient complaint. Exam Const: General: cooperative, healthy appearing, no acute distress and well nourished Nutritional Appearance: well nourished Orientation/consciousness: patient oriented x3 Limitations: no limitations HENMT: Head: normal to inspection and normocephalic Ears: external ears normal, TM normal on the right, mastoids normal, Abnormal EAC present erythema on the left and edema on the left and TM abnormal bulging and erythematous on the left Face/Nose/Sinus: normal facial exam Face and sinus: normal facial exam Mouth: Yes Normal oral and palatal mucosa present, Yes oropharynx normal and Yes moist mucous membranes Throat: tonsils normal, uvula midline and no uvular edema Eyes: General: appearance normal, both eyes and all related structures Sclera: sclerae normal Pupils: Equal, round and reactive pupils present Resp: Effort & Inspection: norm
== END 2023-12-22 17:30 | disposition home or self-care (01) ==
PROVIDERS: Emergency Provider Registered Nurse
DX: H60.312 Diffuse otitis externa, left ear (principal); H66.002 Acute suppurative otitis media without spontaneous rupture of ear drum, left ear; Z87.891 Personal history of nicotine dependence; G35 Multiple sclerosis
CPT/HCPCS: 99213; G0463

== ENCOUNTER 2024-05-26 08:45 | Emergency (ER) | payer BC, SELFPAY ==
[2024-05-26 09:05] VITALS: BP 130/97; PULSE 60; RESP 16; TEMP 36.1; O2SAT 99
--- NOTE | 2024-05-26 09:27 | ED.SKABFB ---
HPI - Skin/Abscess/Foreign Bdy General Chief complaint: Skin/Abscess/Foreign Body Stated complaint: Rash Time Seen by Provider: 05/26/24 09:27 Source: patient Mode of arrival: ambulatory Limitations: no limitations History of Present Illness HPI narrative: 33-year-old male presents with complaint of itchy rash for 2 weeks. Thinks he has poison trisha. 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 History of MS. Currently does not have a primary care physician or neurologist. All systems reviewed and negative except as noted above. Related Data Allergies Allergy/AdvReac Type Severity Reaction Status Date / Time No Known Allergies Allergy Verified 05/26/24 09:02 Review of Systems Review of Systems: CONSTITUTIONAL: Denies fever, chills, or sweats. EYES: Denies visual changes, redness, or discharge. ENT: Denies rhinorrhea, congestion, sore throat, or otalgia. CARDIOVASCULAR: Denies chest pain, palpitations, or edema. RESPIRATORY: Denies cough or dyspnea. GASTROINTESTINAL: Denies abdominal pain, nausea, vomiting, or diarrhea. GENITOURINARY: Denies dysuria or hematuria. SKIN: Reports itchy rash for 2 weeks. MUSCULOSKELETAL: Denies back pain, joint pain, or myalgia. NEUROLOGIC: Denies headache, numbness, or weakness. PSYCHIATRIC: Denies anxiety or depression. All other systems reviewed are negative, except as documented in HPI. [facility] Past Medical History Medical History Multiple sclerosis Toothache Trigeminal neuralgia Surgical History Surgical History History of inguinal hernia repair Family History Family History Mother Family history non-contributory Social History Social History Smoking packs per day: 1 Smoking cigarettes per day: 20.0 Years smoked: 15 Smoking pack-years: 15.00 Smoking status: Former smoker Tobacco type: cigarettes Substance use: never Living arrangements: with family Gender identity (if verbalized by the patient): Male Spiritual care concerns: No Comments At time of signature, agree with nursing past medical, surgical, social and family history. There is no relevant family history pertinent to the presenting complaint. Exam Narrative: GENERAL: This is a well-nourished, well-developed patient, in no apparent distress. HEAD: normocephalic, atraumatic. EYES: PERRL. Sclera clear/white. Vision is grossly intact. EARS: External ears normal NOSE: External nose normal NECK: Neck supple, non-tender without lymphadenopathy, masses or thyromegaly. CARDIOVASCULAR: Regular rate and rhythm without murmurs, gallops, or rubs. RESPIRATORY: Clear to auscultation. Breath sounds equal bilaterally. No wheezes, rales, or rhonchi. SKIN: warm, Dry, intact with good texture and turgor. Erythematous, vesicular rash to bilateral arms and legs. Some of the rash is weeping, other reports of rash is Scaly NEURO: awake, alert, and oriented to person, place and time. There were no obvious focal neurologic abnormalities. EXTREMITIES: No joint tenderness, effusion, or edema noted. Course Course Level of Care: Express Care Visit Vital Signs Vital signs: Vital Signs Temperature 36.1 C L 05/26/24 09:05 Pulse Rate 60 05/26/24 09:05 Respiratory Rate 16 05/26/24 09:05 Blood Pressure 130/97 H 05/26/24 09:05 Pulse Oximetry 99 05/26/24 09:05 Oxygen Delivery Room Air 05/26/24 09:05 Temperature 36.1 C L 05/26/24 09:05 Pulse Rate 60 05/26/24 09:05 Respiratory Rate 16 05/26/24 09:05 Blood Pressure 130/97 H 05/26/24 09:05 Pulse Oximetry 99 05/26/24 09:05 Oxygen Delivery Room Air 05/26/24 09:05 reviewed MDM - Skin/Abscess/Foreign Bdy MDM Narrative Medical decision making narrative: Patient is aware of diagnosis, unders
== END 2024-05-26 09:41 | disposition home or self-care (01) ==
PROVIDERS: Emergency Provider Nurse Practitioner Family; PCP Emergency Medicine
DX: L25.5 Unspecified contact dermatitis due to plants, except food (principal); Z87.891 Personal history of nicotine dependence; G35 Multiple sclerosis
CPT/HCPCS: 99213; G0463

== ENCOUNTER 2024-12-25 16:14 | Emergency (ER) | payer BC, SELFPAY ==
--- NOTE | ~2024-12-25 | CT_ITS ---
History: Headache PROCEDURE: CT head without contrast. COMPARISON: None TECHNIQUE: Axial imaging of the head performed from the skull base to the vertex without IV contrast. Sagittal a nd coronal reformations obtained. DLP: 681 mGy-cm FINDINGS: The ventricles are normal in size, shape and position. There is no mass, mass effect or midline shift. There is no abnormal extra-axial fluid collection or intracranial hemorrhage. Visualized paranasal sinuses are clear. The mastoid air cells are well aerated. No acute displaced fractures within the overlying cranium. Impression: No acute intracranial hemorrhage or suspicious mass effect. Reviewed, dictated and finalized at location A. L COVERER Impression: No acute intracranial hemorrhage or suspicious mass effect.
[2024-12-25 16:16] VITALS: BP 153/90; PULSE 67; RESP 18; TEMP 36.6; O2SAT 98
--- NOTE | 2024-12-25 16:34 | ED_ITS ---
HPI - Headache General Chief Complaint: Headache Stated Complaint: migraines Time Seen by Provider: 12/25/24 16:15 Source: patient Mode of arrival: ambulatory Limitations: no limitations History of Present Illness HPI Narrative: Patient is a 34-year-old male with known migraines and he has been having headache/ migraine for the past week. His pain is usually frontal and more so to the right than the left. This is similar in nature. The only new change is that he tried it Imitrex without relief yesterday. Further he has some neurological changes such as amnesia yesterday and sensorium changes. MD elicited complaint: headache and migraine Pertinent past history: migraines Onset (ago): week(s) ( One) Onset description: gradually Location: right, left and frontal Severity: moderate Pain scale (0-10): 8 Quality & Timing: throbbing, sharp, steady, constant and similar to previous headaches Exacerbating factors: exertion, movement of head/neck, sitting/standing, light and noise Relieving factors: rest, dark room and sleep Context: occurred at rest, occurred with exertion/activity and other ( patient has progressively worse headache/migraine in his normal fashion be on some sensorium changes yesterday which resolved at this time) Associated symptoms: none and confusion Treatments prior to arrival: acetaminophen, ibuprofen and migraine medication Related Data Home Medications ?Medication ?Instructions ?Recorded ?Confirmed ?Last Taken ?Type No Home Medications 12/25/24 12/25/24 Unknown History Allergies Allergy/AdvReac Type Severity Reaction Status Date / Time No Known Allergies Allergy Verified 12/25/24 16:30 Review of Systems Review of Systems: All systems reviewed & are unremarkable except as noted in HPI and below Constitutional: Constitutional: Reports no additional constitutional complaints Eyes: Eyes: Reports no additional eye complaints ENT: Reports system reviewed and no additional complaints, except as documented Cardiovascular: Cardiovascular: Reports no additional cardiovascular complaints Respiratory: Respiratory: Reports no additional respiratory complaints Gastrointestinal: Gastrointestinal: Reports no additional gastrointestinal complaints Genitourinary: Genitourinary: Reports no additional male genitourinary complaints Musculoskeletal: Musculoskeletal: Reports no additional musculoskeletal complaints Integumentary/Breasts: Skin/Breast: Reports system reviewed and no additional complaints, except as docu Neurologic: Reports system reviewed and no additional complaints, except as documented Psychiatric: Psychiatric: Reports no additional psychiatric complaints Endocrine: Endocrine: Reports no additional endocrine complaints Hematologic/Lymphatic: Hematologic/Lymphatic: Reports no additional hematologic/lymphatic complaints Allergic/Immunologic: Allergic/Immunologic: Reports no additional allergic/immunologic complaints [facility] Past Medical History Medical History Toothache Trigeminal neuralgia Multiple sclerosis Surgical History Surgical History History of inguinal hernia repair Family History Family History Mother Family history non-contributory Social History Social History Smoking packs per day: 1 Smoking cigarettes per day: 20.0 Years smoked: 15 Smoking pack-years: 15.00 Smoking status: Former smoker Tobacco type: cigarettes Substance use: never Living arrangements: with family Gender identity (if verbalized by the patient): Male Spiritual care concerns: No Exam Const: General: ill appearing ( due to pain) Nutritional Appearance: well nourished Orientation/consciousness: patient oriented x3 Limitations: no limitations HENMT: Head: normal to inspection Ears: external ears normal Face/Nose/ Sinus: Normal external nose present Eyes: Conjunctivae: conjunctivae normal Pupils: Equal, round and reactive pupils present EOM: EOMs intact bilaterally Neck: Neck: normal visual inspection Chest: Chest palpation & inspection: normal inspection of the chest Resp: Effort & Inspection: normal respiratory effort and not labored Auscultation: clear to auscultation bilaterally and no crackles Cardio: Rate: regular rate Rhythm: regular rhythm Heart sounds: no murmurs GI: Inspection: non-distended GI Palp: Yes Soft to palpation and No Tenderness to palpation present (GI) Auscultation: normal bowel sounds : General: Yes bladder normal to palpation Back/Spine/Pelvis: Back: no CVA tenderness Skin: General skin exam: normal color Rashes: no rashes Wounds: no wounds Neuro: General: patient oriented x3, moves all extremities, no meningeal signs, no focal motor deficits and CN's II-XI intact bilaterally Cranial nerves: Yes Nystagmus not present Speech: normal speech Gait exam (Neuro): Normal gait present Other: NIH score is 0, fast exam negative, GCS is 15 Extrem: General: normal to inspection Psych: Mental Status: mental status grossly normal Affect: normal affect Attitude: cooperative Course Vital Signs Vital signs: Vital Signs Temperature 36.6 C 12/25/24 16:16 Pulse Rate 67 12/25/24 16:16 Respiratory Rate 18 12/25/24 16:16 Blood Pressure 153/90 H 12/25/24 16:16 Pulse Oximetry 98 12/25/24 16:16 Oxygen Delivery Room Air 12/25/24 16:16 Temperature 36.6 C 12/25/24 16:16 Pulse Rate 67 12/25/24 16:16 Respiratory Rate 18 12/25/24 16:16 Blood Pressure 153/90 H 12/25/24 16:16 Pulse Oximetry 98 12/25/24 16:16 Oxygen Delivery Room Air 12/25/24 16:16 MDM - Headache MDM Narrative Medical decision making narrative: patient is a 34-year-old male with a typical migraine headache with some sensorium changes yesterday. We will get a CT of the head and give him triple therapy with IV fluid bag. Imaging Data Attestation: I personally reviewed and interpreted this imaging study as follows: Radiologist's impression: CT scan of the head is negative for acute process Discharge Plan Discharge Clinical Impression: Cephalgia Qualifiers: Headache type: unspecified Headache chronicity pattern: acute headache Intractability: not intractable Qualified Code(s): R51.9 - Headache, unspecified Patient Disposition: Home, Self-Care Condition: Stable Instructions: Migraine Headache (ED) Patient Language: Malay Prescriptions: No Action No Home Medications Follow-up/Referrals: Aquilino Hyde MD [Physician] - Time of Disposition: 17:48
[2024-12-25] MEDS: SODIUM CHLORIDE 0.9% IV 1,000 ML 999 ML IV CONT (17:01)
[2024-12-25] MEDS: diphenhydrAMINE HCl INJ 50 MG/ML VIAL 25 MG IV PUSH (17:03)
[2024-12-25] MEDS: KETOROLAC 30 MG/ML VIAL (*BKC) IV PUSH (17:04)
[2024-12-25] MEDS: METOCLOPRAMIDE HCL INJ 10 MG/2 ML VIAL IV PUSH (17:08)
[2024-12-25 17:57] VITALS: BP 123/76; PULSE 60; RESP 20; TEMP 36.7; O2SAT 100
[2024-12-25] MEDS: HYDROcodone/acetaminophen (*CRX) 10-325 MG TABLET 1 TAB PO (17:59)
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
--- OUTSIDE RECORDS SUMMARY | 2024-12-25 18:32 | XMS_ITS | Clinical Summary ---
Author Organization [facility] Address [address] [place] [address] Care Team Providers Care Solutions Delivery Consultant Name Role Phone Nano Klein PA-C Unavailable Source Comments [facility],non-owned Affiliates and Associated Physician Practices is amultiple site organization consisting of ambulatory clinics and hospital sitesin [place], [place], [place] and [place]. This disclosure is being madepursuant to the Care Everywhere program and may not contain all information available regarding this patient. Last updated 18.[facility] Allergies No known active allergies Medications * Be aware that medications may not be up to date on this document. Alwaysverify current medications with the patient. Medication Sig Dispensed Refills Start Date End Date Status albuterol HFA (PROVENTIL;VENTOLIN;[place] OAIR) 108 (90 Base) MCG/ACT inhalerIndications:Ast hma Inhale 2 puffs by mouth every 6 hours as needed 02/15/2020 Active carBAMazepine (TEGRETOL) 200 MG tabletIndications:Trig eminal Neuralgia Take 400 mg by mouth 3 times daily Active ondansetron (ZOFRAN) 4 MG tabletIndications:Naus ea and Vomiting Take 4 mg by mouth every 8 hours as needed for Nausea/Vomiting Active baclofen (LIORESAL) 20 MG tabletIndications:Musc le Spasm Take 20 mg by mouth 4 times daily May cause drowsiness. Active Active Problems Problem Noted Date Diagnosed Date Moderate episode of recurrent major depressive d isorder 04/15/2021 Trigeminal neuralgia of left side of face 2020 Homelessness 04/15/2021 Suicidal ideation 04/15/2021 Post-dural puncture headache 07/21/2019 Transient confusion 07/21/2019 Social History Tobacco Use Types Packs/Day Years Used Date Smoking Tobacco: Every Day Cigarettes 0.3 14 Smokeless Tobacco: Never Tobacco Cessation:Ready to Q uit: No; Counseling Given: Yes Alcohol Use Standard Drinks/Week Comments No 0 (1 standard drink = 0.6 oz pur e alcohol) Sex and Gender Information Value Date Recorded Sex Assigned at Male 04/15/2021 5:46 PM CDT Gender Identity Male 05/23/2020 12:48 PM CDT Sexual Orientation Straight 04/15/2021 5: 46 PM CDT Last Filed Vital Signs Vital Sign Reading Time Taken Comments Blood Pressure 137/93 04/20/2021 7:37 AM CDT Pulse 98 04/20/2021 7:37 AM CDT Temperature 37.2 C (99 F) 04/20/2021 7:37 AM CDT Respiratory Rate 18 04/20/2021 7:37 AM CDT Oxygen Saturation 96% 04/20/2021 7:37 AM CDT Inhaled Oxygen Concentration - - Weight 113.4 kg (250 lb) 04/15/2021 5:48 PM CDT Height 182.9 cm (6') 04/15/2021 5:48 PM CDT Body Mass Index 33.91 04/15/2021 5:48 PM CDT Plan of Treatment Health Maintenance Due Date Last Done Comments HIV SCREENING 2003 HEPATITIS C SCREENING 07/05/2006 DTAP/TDAP/TD VACCINES (1 - Tdap) 2007 HEPATITIS B VACCINE (1 of 3 - 19+ 3-dose series) 2007 COVID-19 VACCINE (2023-2 5 season) 2024 INFLUENZA VACCINE (#1) 2024 DEPRESSION SCREENING 11/01/2024 ZOSTER VACCINE (1 of 2) 2038 HIB VACCINE Aged Out No longer eligi ble based on patient's age to complete this topic HPV VACCINE Aged Out No longer eligi ble based on patient's age to complete this topic MENINGOCOCCAL (Group B) VACCINE Aged Out No longer eligible based on patient's age to complete this topic MENINGOCOCCAL VACCINE Aged Out No naif bernarda eligible based on patient's age to complete this topic PNEUMOCOCCAL VACCINE Aged Out No long er eligible based on patient's age to complete this topic Advance Directives Documents on File Type Date Recorded Patient Insights Analyst Expl anation Adv Directive/Living Will/POA 03/15/2017 * Full Code (Latest Code Status on File) Date Activated Date Inactivated Comments 04/15/2021 5:39 PM 04/20/2021 6:32 PM * Full Code Date Activated Date Inactivated Comments 07/21/2019 10:50 PM 07/22/2019 7:23 PM Care Teams Solutions Delivery Consultant Relationship Specialty Start Date End Date Nano Klein PA-C [address] [place] [id number] PCP - Attributed-BC Medicaid [place] 08/01/20
--- OUTSIDE RECORDS SUMMARY | 2024-12-25 18:32 | XMS_ITS | Referral Summary ---
Author Organization [facility] Address [address] [place] [address] Care Team Providers Care Land Survey Technician Name Role Phone Nano Klein PA-C Unavailable Source Comments [facility],non-owned Affiliates and Associated Physician Practices is amultiple site organization consisting of ambulatory clinics and hospital sitesin [place], [place], [place] and [place]. This disclosure is being madepursuant to the Care Everywhere program and may not contain all information available regarding this patient. Last updated 18.[facility] Allergies No known active allergies Medications * Be aware that medications may not be up to date on this document. Alwaysverify current medications with the patient. Medication Sig Dispensed Refills Start Date End Date Status albuterol HFA (PROVENTIL;VENTOLIN;IN OAIR) 108 (90 Base) MCG/ACT inhalerIndications:Ast hma [...] Mass Index 33.91 04/15/2021 5:48 PM CDT Functional Status Functional Status Response Date of Assess ment Is person deaf or have serious hearing difficult y? No 04/20/2021 Is person blind or have serious difficulty seein g? No 04/20/2021 Does person have serious dif ficulty walking/climbing stairs? No 04/20/2021 Does person have difficulty dressing/bathing? No 04/20/2021 Does person have difficulty doing errands alone? No 04/20/2021 Cognitive Status Response Date of Assessm ent Does person have difficulty concentrating/remembering/making decisions? No 04/20/2021 Plan of Treatment Not on file Advance Directives Documents on File Type Date Recorded Patient Roll Line Operator Expl anation Adv Directive/Living Will/POA 03/15/2017 * Full Code (Latest Code Status on File) Date Activated Date Inactivated Comments 04/15/2021 5:39 PM 04/20/2021 6:32 PM * Full Code Date Activated Date Inactivated Comments 07/21/2019 10:50 PM 07/22/2019 7:23 PM Care Teams Land Survey Technician Relationship Specialty Start Date End Date Nano Klein, MICHELLE [address] [place] [id number] PCP - Attributed-[employer] Medicaid [place] 08/01/20
--- OUTSIDE RECORDS SUMMARY | 2024-12-25 18:32 | XMS_ITS | Patient Health Summary ---
Author Organization [facility] 7digital Address [address] [place] [address] Care Team Providers Care Music Publisher Name Role Phone Nano Klein PA-C Unavailable Note from [facility],non-owned Affiliates and Associated Physician Practices is amultiple site organization consisting of ambulatory clinics and hospital sitesin [place], [place], [place] and [place]. This disclosure is being madepursuant to the Care Everywhere program and may not contain all information available regarding this patient. Last updated 18.[facility] 7digital Allergies No known active allergies Medications * Be aware that medications may not be up to date on this document. Alwaysverify current medications with the patient. * albuterol HFA (PROVENTIL;VENTOLIN;PROAIR) 108 (90 Base) MCG/ACT inhaler (Started 02/15/2020) Inhale 2 puffs by mouth every 6 hours as needed * carBAMazepine (TEGRETOL) 200 MG tablet Take 400 mg by mouth 3 times daily * ondansetron (ZOFRAN) 4 MG tablet Take 4 mg by mouth every 8 hours as needed for Nausea/Vomiting * baclofen (LIORESAL) 20 MG tablet Take 20 mg by mouth 4 times daily May cause drowsiness. Active Problems Problem Noted Date Diagnosed Date [...] Mass Index 33.91 04/15/2021 5:48 PM CDT Procedures * CARBAMAZEPINE LEVEL TOTAL(Performed 04/20/2021) * ALCOHOL ETHYL BLOOD(Performed 04/15/2021) * SALICYLATE LEVEL BLOOD(Performed 04/15/2021) * ACETAMINOPHEN LEVEL(Performed 04/15/2021) * TSH REFLEX FREE T4(Performed 04/15/2021) * COMPREHENSIVE METABOLIC PANEL(Performed 04/15/2021) * CBC W AUTO DIFFERENTIAL(Performed 04/15/2021) * DRUG ABUSE URINE SCREEN 10(Performed 04/15/2021) * URINALYSIS REFLEX MICROSCOPIC REFLEX CULTURE(Performed 04/15/2021) * SARS-COV-2 (COVID-19) RAPID(Performed 04/15/2021) * CT RENAL STONE(Performed 08/18/2020) Performed for Flank pain * DIFFERENTIAL MANUAL(Performed 08/18/2020) * URINE MICROSCOPIC ONLY REFLEX TO CULTURE(Performed 08/18/2020) * URINALYSIS REFLEX MICROSCOPIC REFLEX CULTURE(Performed 08/18/2020) * PT-INR(Performed 08/18/2020) * COMPREHENSIVE METABOLIC PANEL(Performed 08/18/2020) * CBC W AUTO DIFFERENTIAL(Performed 08/18/2020) * CT RENAL STONE(Performed 07/24/2020) Performed for Flank pain * COMPREHENSIVE METABOLIC PANEL(Performed 07/24/2020) * CBC W AUTO DIFFERENTIAL(Performed 07/24/2020) * URINE MICROSCOPIC ONLY REFLEX TO CULTURE(Performed 07/24/2020) * URINALYSIS REFLEX MICROSCOPIC REFLEX CULTURE(Performed 07/24/2020) * URINE MICROSCOPIC ONLY REFLEX TO CULTURE(Performed 05/23/2020) * URINALYSIS REFLEX MICROSCOPIC REFLEX CULTURE(Performed 05/23/2020) * CULTURE URINE(Performed 05/23/2020) * CT RENAL STONE(Performed 05/23/2020) Performed for Flank pain, RLQ abdominal pain, Renal calculi * US KIDNEYS W BLADDER(Performed 05/23/2020) Performed for Flank pain, RLQ abdominal pain * COMPREHENSIVE METABOLIC PANEL(Performed 05/23/2020) * CBC W AUTO DIFFERENTIAL(Performed 05/23/2020) * CARDIAC RHYTHM STRIP ORDER(Performed 04/30/2020) * URINE MICROSCOPIC ONLY(Performed 04/19/2020) * URINALYSIS REFLEX TO MICROSCOPIC NO CULTURE(Performed 04/19/2020) * CT ABDOMEN PELVIS WO CONTRAST(Performed 04/19/2020) Performed for Abdominal pain, left lower quadrant * LIPASE BLOOD(Performed 04/19/2020) * COMPREHENSIVE METABOLIC PANEL(Performed 04/19/2020) * CBC W AUTO DIFFERENTIAL(Performed 04/19/2020) * AMYLASE BLOOD(Performed 04/19/2020) * XR ABD OBSTRUCTION SERIES 2VW(Performed 04/03/2020) Performed for Epigastric abdominal pain, Diarrhea, unspecified type * C DIFFICILE BY PCR(Performed 03/28/2020) Performed for MS (multiple sclerosis) (HCC) * COMPREHENSIVE METABOLIC PANEL(Performed 03/28/2020) Performed for MS (multiple sclerosis) (HCC) * CBC W AUTO DIFFERENTIAL(Performed 03/28/2020) Performed for MS (multiple sclerosis) (HCC) * CT ANGIO CHEST(Performed 02/28/2020) Performed for Multiple sclerosis (HCC), Hemoptysis, Cough, Dyspnea and respiratory abnormalities, Rash and other nonspecific skin eruption * EKG 12-LEAD(Performed 02/28/2020) Performed for Hemoptysis, Cough, Dyspnea and respiratory abnormalities * COVID-19 VIRUS (CORONAVIRUS)(Performed 02/28/2020) * CULTURE BLOOD(Performed 02/28/2020) * TROPONIN I(Performed 02/28/2020) * PROCALCITONIN LEVEL(Performed 02/28/2020) * COMPREHENSIVE METABOLIC PANEL(Performed 02/28/2020) * CBC W AUTO DIFFERENTIAL(Performed 02/28/2020) * LACTIC ACID BLOOD(Performed 02/28/2020) * CULTURE BLOOD(Performed 02/28/2020) * CT RENAL STONE(Performed 11/23/2019) Performed for Right ureteral stone * URINE MICROSCOPIC ONLY REFLEX TO CULTURE(Performed 10/17/2019) * URINALYSIS REFLEX MICROSCOPIC REFLEX CULTURE(Performed 10/17/2019) * CT ABDOMEN PELVIS W CONTRAST(Performed 10/17/2019) Performed for RLQ abdominal pain * TROPONIN I(Performed 10/17/2019) * PT-INR(Performed 10/17/2019) * LIPASE BLOOD(Performed 10/17/2019) * TOPIRAMATE LEVEL(Performed 10/17/2019) Performed for Therapeutic drug monitoring * COMPREHENSIVE METABOLIC PANEL(Performed 10/17/2019) Performed for Therapeutic drug monitoring * CBC W AUTO DIFFERENTIAL(Performed 10/17/2019) Performed for Therapeutic drug monitoring * PT-INR(Performed 07/22/2019) Performed for Transient confusion, Post-dural puncture headache * CBC W AUTO DIFFERENTIAL(Performed 07/22/2019) Performed for Transient confusion, Post-dural puncture headache * BASIC METABOLIC PANEL (CALCIUM TOTAL)(Performed 07/22/2019) Performed for Transient confusion, Post-dural puncture headache * LACTIC ACID BLOOD(Performed 07/21/2019) * LACTIC ACID BLOOD(Performed 07/21/2019) * URINE MICROSCOPIC ONLY REFLEX TO CULTURE(Performed 07/21/2019) * URINALYSIS REFLEX MICROSCOPIC REFLEX CULTURE(Performed 07/21/2019) * CULTURE BLOOD(Performed 07/21/2019) * EKG 12-LEAD(Performed 07/21/2019) Performed for Transient confusion * DIFFERENTIAL MANUAL(Performed 07/21/2019) * PROCALCITONIN LEVEL(Performed 07/21/2019) * LACTIC ACID BLOOD(Performed 07/21/2019) * COMPREHENSIVE METABOLIC PANEL(Performed 07/21/2019) * CBC W AUTO DIFFERENTIAL(Performed 07/21/2019) * CULTURE BLOOD(Performed 07/21/2019) * PROTEIN ELECTROPHORESIS BLOOD(Performed 07/19/2019) Performed for Multiple sclerosis (HCC) * IGG BLOOD(Performed 07/19/2019) Performed for Multiple sclerosis (HCC) * OLIGOCLONAL BANDS CSF+BLOOD PANEL(Performed 07/19/2019) Performed for Multiple sclerosis (HCC) * NEUROMYELITIS OPTICA AQP4 IGG CSF W/RFLX(Performed 07/19/2019) Performed for Multiple sclerosis ([facility]) * [place] ANTIBODY IGG/IGM CSF PANEL(Performed 07/19/2019) Performed for Multiple sclerosis ([facility]) * PROTEIN ELECTROPHORESIS CSF PANEL(Performed 07/19/2019) Performed for Multiple sclerosis ([facility]) * VDRL CSF W REFLEX TO TITER(Performed 07/19/2019) Performed for Multiple sclerosis ([facility]) * LYME DISEASE IGG/IGM AB PANEL CSF WB(Performed 07/19/2019) Performed for Multiple sclerosis ([facility]) * IGG INDEX CSF PANEL(Performed 07/19/2019) Performed for Multiple sclerosis ([facility]) * VARICELLA ZOSTER ANTIBODY IGG CSF(Performed 07/19/2019) Performed for Multiple sclerosis ([facility]) * PROTEIN CSF(Performed 07/19/2019) Performed for Multiple sclerosis ([facility]) * IGG CSF(Performed 07/19/2019) Performed for Multiple sclerosis ([facility]) * GLUCOSE CSF(Performed 07/19/2019) Performed for Multiple sclerosis ([facility]) * CELL COUNT W DIFFERENTIAL CSF(Performed 07/19/2019) Performed for Multiple sclerosis ([facility]) * MYELIN BASIC PROTEIN CSF(Performed 07/19/2019) Performed for Multiple sclerosis ([facility]) * LYME DISEASE AB SCREEN CSF(Performed 07/19/2019) Performed for Multiple sclerosis ([facility]) * GRAM STAIN (LAB ORDERED)(Performed 07/19/2019) Performed for Multiple sclerosis ([facility]) * CULTURE CSF+GRAM STAIN(Performed 07/19/2019) Performed for Multiple sclerosis ([facility]) * CULTURE CSF+GRAM STAIN(Performed 07/19/2019) Performed for Multiple sclerosis ([facility]) * MENINGITIS ENCEPHALITIS PCR PANEL CSF(Performed 07/19/2019) Performed for Multiple sclerosis ([facility]) * CRYPTOCOCCUS ANTIGEN CSF(Performed 07/19/2019) Performed for Multiple sclerosis ([facility]) * MRI BRAIN WWO CONTRAST(Performed 07/12/2019) Performed for Loss of vision, Demyelinating disease ([facility]) * DERMATOPATHOLOGY(Performed 11/12/2011) * DERMATOPATHOLOGY(Performed 11/12/2011) Results * CARBAMAZEPINE LEVEL TOTAL (04/20/2021 6:05 AM CDT) Carbamazepine 9.2 4.0 - 12.0 ug/mL 04/20/2021 6:52 AM CDT [facility] Blood BLOOD SPECIMEN / Unknown Lab Venipuncture / Unknown 04/20/2021 6:05 AM CDT 04/20/2021 6:17 AM CDT Angelique Lerma MD LAB - CHEMISTRY ORD ERABLES Performing Organization Address [facility] Co de Phone Number [facility] [address] [place] [address] * TSH REFLEX FREE T4 (04/15/2021 12:49 PM CDT) [facility] TSH 2.230 0.35 - 4.94 uIU/mL 04/15/2021 1:50 PM CDT [facility] Comment:TSH Normal, Reflex F ree T4 Not Performed. Blood BLOOD SPECIMEN / Unknown Venipuncture / Unknown 04/15/2021 12:49 PM CDT 04/15/2021 1:07 PM CDT Constance Bullock APRN-VARNISH FILTERER LAB - CHEMISTRY ORDERABLES Performing Organization Address [facility] [[email or web address]] de Phone Number [facility] [address] [place] [address] * (ABNORMAL) CBC W AUTO DIFFERENTIAL (04/15/2021 12:49 PM CDT) Only the most recent of10 resultswithin the time period is included. [facility] WBC 9.3 4.0 - 10.0 x10E9/L 04/15/2021 1:09 PM CDT [facility] RBC 5.04 4.40 - 6.10 x10E12/L 04/15/2021 1:09 PM CDT [facility] Hemoglobin 15.4 13.7 - 17.5 gm/dL 04/15/2021 1:09 PM CDT [facility] Hematocrit 46.3 40.1 - 51.0 % 04/15/2021 1:09 PM CDT [facility] MCV 91.9 78.0 - 100.0 fl 04/15/2021 1:09 PM CDT [facility] MCH 30.6 25.6 - 34.0 pg 04/15/2021 1:09 PM CDT [facility] MCHC 33.3 32.3 - 36.5 gm/dL 04/15/2021 1:09 PM CDT [facility] RDW 14.1 11.6 - 14.4 % 04/15/2021 1:09 PM [facility] MPV 10.6 9.4 - 12.4 fl 04/15/2021 1:09 PM [facility] Platelet Count 259 163 - 369 x10E9/L 04/15/2021 1:09 PM [facility] Neutrophils % 66.2 40.0 - 75.0 % 04/15/2021 1:09 [facility] Lymphocytes % 22.0 19.3 - 53.1 % 04/15/2021 1:09 PM [facility] Monocytes % 9.8 4.7 - 12.5 % 04/15/2021 1:09 [facility] Eosinophils % 1.5 0.7 - 7.0 % 04/15/2021 1:09 [facility] Basophils % 0.3 0.1 - 1.2 % 04/15/2021 1:09 [facility] Immature Granulocytes 0.2 0 - 0.5 % 04/15/2021 1:09 [facility] Neutrophil Absolute 6.14(H) 1.56 - 6.13 x10E9/L 04/15/2021 1:09 [facility] Lymphocytes Absolute 2.04 1.18 - 3.74 x10E9/L 04/15/2021 1:09 PM [facility] Monocytes Absolute 0.91(H) 0.24 - 0.86 x10E9/L 04/15/2021 1:09 [facility] Eosinophils Absolute 0.14 0.04 - 0.54 x10E9/L 04/15/2021 1:09 [facility] Basophils Absolute 0.03 0.01 - 0.08 x10E9/L 04/15/2021 1:09 [facility] Immature Granulocytes Absolute 0.02 0 - 0.03 x10E9/L 04/15/2021 1:09 [facility] nRBC Auto 0 <=0 /100 WBC 04/15/2021 1:09 PM [facility] nRBC Absolute 0.00 <=0 x10E9/L 04/15/2021 1:09 [facility] Blood BLOOD SPECIMEN / Unknown Venipuncture / Unknown 04/15/2021 12:49 PM CDT 04/15/2021 1:07 PM CDT Constance Bullock APRN-VARNISH FILTERER LAB - HEMATOLOG Y ORDERABLES [facility] [address] * COMPREHENSIVE METABOLIC PANEL (04/15/2021 12:49 PM CDT) Only the most recent of9 resultswithin the time period is included. [facility] Glucose 84 70 - 125 mg/dL 04/15/2021 1:27 PM CDT [facility] Sodium 138 136 - 145 mmol/L 04/15/2021 1:27 PM T [facility] Potassium 4.0 3.4 - 4.5 mmol/L 04/15/2021 1:27 PM T [facility] Chloride 102 98 - 107 mmol/L 04/15/2021 1:27 PM T [facility] CO2 26 22 - 29 mmol/L 04/15/2021 1:27 PM T [facility] Calcium 9.5 8.4 - 10.2 mg/dL 04/15/2021 1:27 PM T [facility] Anion Gap 14 10 - 20 mmol/L 04/15/2021 1:27 PM T [facility] BUN 14.4 8.4 - 25.7 mg/dL 04/15/2021 1:27 PM T [facility] Creatinine 1.00 0.72 - 1.25 mg/dL 04/15/2021 1:27 PM T [facility] eGFR by MDRD >60 >60 mL/min/1.7 3m2 04/15/2021 1:27 PM T [facility] eGFR by MDRD >60 >60 mL/min/1.7 3m2 04/15/2021 1:27 PM T [facility] Alkaline Phosphatase 115 40 - 150 U/L 04/15/2021 1:27 PM T [facility] ALT 42 5 - 55 U/L 04/15/2021 1:27 PM T [facility] AST 22 5 - 34 U/L 04/15/2021 1:27 PM T [facility] Protein Total 7.0 6.4 - 8.3 gm/dL 04/15/2021 1:27 PM CDT [facility] Albumin 4.2 3.5 - 5.0 gm/dL 04/15/2021 1:27 PM CDT [facility] Globulin Total 2.8 2.6 - 4.0 gm/dL 04/15/2021 1:27 PM CDT [facility] Albumin/Globulin Ratio 1.5 0.9 - 1.6 04/15/2021 1:27 PM CDT [facility] Bilirubin Total 0.3 0.2 - 1.2 mg/dL 04/15/2021 1:27 PM CDT [facility] Blood BLOOD SPECIMEN / Unknown Venipuncture / Unknown 04/15/2021 12:49 PM CDT 04/15/2021 1:07 PM CDT Constance Bullock [facility] LAB - CHEMISTRY ORDERABLES Performing Organization Address City/[facility] Co de Phone Number [facility] [address] [place] [address] * ALCOHOL ETHYL BLOOD (04/15/2021 12:49 PM CDT) Ethanol <10.0 <10 mg/dL 04/15/2021 1:2 7 PM CDT [facility] Blood BLOOD SPECIMEN / Unknown Venipuncture / Unknown 04/15/2021 12:49 PM CDT 04/15/2021 1:07 PM CDT Narrative [facility] - 04/15/2021 1:27 PM CDT For Medical Use Only Constance Bullock [facility] LAB - CHEMISTRY ORDERABLES [facility] [address] * (ABNORMAL) SALICYLATE LEVEL BLOOD (04/15/2021 12:49 PM CDT) Salicylate <5.0(L) 15.0 - 30.0 mg/dL 04/15/2021 1:32 PM CDT [facility] Blood BLOOD SPECIMEN / Unknown Venipuncture / Unknown 04/15/2021 12:49 PM CDT 04/15/2021 1:07 PM CDT Constance Almanzar Ara [facility] LAB - CHEMISTRY ORDERABLES Performing Organization Address [facility] Co de Phone Number [facility] [address] * (ABNORMAL) ACETAMINOPHEN LEVEL (04/15/2021 12:49 PM CDT) [facility] Acetaminophen <0.6(L) 10.0 - 30.0 ug/mL 04/15/2021 1:32 PM CDT [facility] Blood BLOOD SPECIMEN / Unknown Venipuncture / Unknown 04/15/2021 12:49 PM CDT 04/15/2021 1:07 PM CDT Narrative [facility] - 04/15/2021 1:32 PM CDT Significantly reduced Acetaminophen recovery has been demonstrated in situations where testing has been performed immediately after introduction of N- acetylcysteine (NAC). Constance Almanzar Ara [facility] LAB - CHEMISTRY ORDERABLES Performing Organization Address [facility] [[email or web address]] de Phone Number [facility] [address] [place] [address] * SARS-COV-2 (COVID-19) RAPID (04/15/2021 12:45 PM CDT) [facility] COVID-19 PCR Not detected Not detected, Invalid 04/15/2021 1:51 PM CDT [facility] Microbiology SPECIMEN FROM NASOPHARYNGEAL STRUCTURE / Unknown Collection / Unknown 04/15/2021 12:45 PM CDT 04/15/2021 12:50 PM CDT Narrative [facility] - 04/15/2021 1:51 PM CDT The Cepheid Xpert Xpress SARS-COV-2 has been authorized by the Food and Drug administration (FDA) under an Emergency Use Authorization (EUA). This test has been validated in accordance with the FDA's guidance document Policy for Diagnostic Testing in Laboratories Certified to perform High Complexity Testing under CLIA prior to Emergency Use Authorization for Coronavirus Disease-2019 during the Public Health Emergency issued on December 30, 2019. FDA independent review of this validation is pending. This test is only authorized for the duration of time the declaration that circumstances exist justifying the authorization of emergency use of in vitro diagnostic tests for detection of SARS-COV-2 virus and/or diagnosis of COVID-19 infection under 564(b)(1)of the Act, 21 U.S.C. 360bbb-3 (b) (1), unless the authorization is terminated or revoked sooner. Constance Bullock PIT LABORER-[employer]ARNISH FILTERER LAB - MICROBIOL OGY ORDERABLES [facility] [address] * (ABNORMAL) DRUG ABUSE URINE SCREEN 10 (04/15/2021 12:45 PM CDT) [facility] Amphetamines Screen Urine Negative Negative 04/15/2021 1:19 PM CDT [facility] Barbiturates Screen Urine Negative Negative 04/15/2021 1:19 PM CDT [facility] Benzodiazepines Screen Urine Negative Negative 04/15/2021 1:19 PM CDT [facility] Cannabinoids Screen Urine Positive(A) Negative 04/15/2021 1:19 PM CDT [facility] Cocaine Screen Urine Negative Negative 04/15/2021 1:19 PM CDT [facility] Methadone Screen Urine Negative Negative 04/15/2021 1:19 PM CDT [facility] Opiate Screen Urine Positive(A) Negative 04/15/2021 1:19 PM CDT [facility] Phencyclidine Screen Urine Negative Negative 04/15/2021 1:19 PM CDT [facility] Tricyclics Screen Urine Negative Negative 04/15/2021 1:19 PM CDT [facility] Methamphetamine Screen Urine Negative Negative 04/15/2021 1:19 PM CDT [facility] Buprenorphine Screen Urine Negative Negative 04/15/2021 1:19 PM CDT [facility] Oxycodone Screen Urine Negative Negative 04/15/2021 1:19 PM CDT [facility] Propoxyphene Screen Urine Negative Negative 04/15/2021 1:19 PM CDT [facility] Urine URINE / Unknown Collection / Unknown 04/15/2021 12:45 PM CDT 04/15/2021 12:50 PM CDT Narrative [facility] - 04/15/2021 1:19 PM CDT This is a presumptive/unconfirmed test for medical treatment purposes only. Clinical consideration and professional judgment should be applied when using presumptive results. If confirmatory testing, such as gas chromatography-mass spectrometry (GC/MS), of any positive results of this test is required, please notify the laboratory within 7 days of collection. This test is intended only for monitoring or management of patients. It is not intended for use in job-related and/or legal-related purposes. The cutoff value for each analyte is: Barbiturates.....200 ng/mL Benzodiazepines......150 ng/mL Cocaine..........150 ng/mL Opiates..............100 ng/mL Phencyclidine.....25 ng/mL Tricyclics...........300 ng/mL Cannabinoid.......50 ng/mL Amphetamines.........500 ng/mL Methadone........200 ng/mL Methamphetamines.....500 ng/mL Buprenorphine.....10 ng/mL Oxycodone............100 ng/mL Propoxyphene.....300 ng/mL Constance Jenelle Bullock PIT LABORER-[employer]ARNISH FILTERER LAB - URINE LAUREANO MAURICIO ORDERABLES Performing Organization Address City/State/[facility] Co de Phone Number [facility] [address] * URINALYSIS REFLEX MICROSCOPIC REFLEX CULTURE (04/15/2021 12:45 PM CDT) Only the most recent of6 resultswithin the time period is included. Color UA Straw Straw, Yellow 04/15/2021 1:03 PM CDT [facility] Clarity UA Clear Clear 04/15/2021 1:03 PM CDT [facility] Glucose UA Negative Negative 04/15/2021 1:03 PM CDT [facility] Bilirubin UA Negative Negative 04/15/2021 1:03 PM CDT [facility] Ketone UA Negative Negative 04/15/2021 1:03 PM CDT [facility] Specific [place] UA 1.015 1.005 - 1.030 04/15/2021 1:03 PM CDT [facility] Blood UA Negative Negative 04/15/2021 1:03 PM CDT [facility] pH UA 7.0 5.0 - 8.0 pH 04/15/2021 1:03 PM CDT [facility] Protein UA Negative Negative 04/15/2021 1:03 PM CDT [facility] Urobilinogen UA Negative Negative mg/dL 04/15/2021 1:03 PM CDT [facility] Nitrite UA Negative Negative 04/15/2021 1:03 PM CDT [facility] Leukocyte UA Negative Negative 04/15/2021 1:03 PM CDT [facility] Urine Microscopy Urine microscopy not indicated 04/15/2021 1:03 PM CDT [facility] Reflex Status Culture not indicated 04/15/2021 1:03 PM CDT [facility] Urine URINE SPECIMEN OBTAINED BY CLEAN CATCH PROCEDURE / Unknown Collection / Unknown 04/15/2021 12:45 PM CDT 04/15/2021 12:50 PM CDT Narrative [facility] - 04/15/2021 1:03 PM CDT Constance Bullock PIT LABORER-[employer]ARNISH FILTERER LAB - URINALYSI S ORDERABLES Performing Organization Address City/State/[facility] Co de Phone Number [facility] [address] * CT RENAL STONE - suspected stone disease (08/18/2020 7:20 AM CDT) Only the most recent of4 resultswithin the time period is included. Anatomical Region Laterality Modality Abdomen Computed Tomogra phy 08/18/2020 7:44 AM CDT Impressions 08/18/2020 7:46 AM CDT 1. Evidence of recently passed right ureteral stone with moderate right hydroureteronephrosis seen. 2. Bilateral nephroliths. Narrative 08/18/2020 7:46 AM CDT EXAM: CT RENAL STONE HISTORY: Unspecified abdominal pain. TECHNIQUE: Multislice helical. Radiation dose reduction technique was utilized DATE: 08/18/2020 COMPARISON: 07/24/2020. ABDOMEN: Multiple stones measuring up to 5.5 mm in diameter are seen in the left kidney. There are punctate calculi in the right kidney. A 5 mm stone is seen in the right bladder base with mild right hydroureteronephrosis. No hydronephrosis or perinephric fluid is present. The kidneys are normal in size, shape, and contour. The nonenhanced liver, gallbladder, spleen, pancreas, and adrenal glands are normal. The bowel shows a normal caliber and configuration. The appendix is normal. PELVIS: The pelvic viscera are normal. No free pelvic fluid is present. Procedure Note Tobias Jaquez MD - 08/18/2020 EXAM: CT RENAL STONE HISTORY: Unspecified abdominal pain. TECHNIQUE: Multislice helical. Radiation dose reduction technique was utilized DATE: 08/18/2020 COMPARISON: 07/24/2020. ABDOMEN: Multiple stones measuring up to 5.5 mm in diameter are seen in the left kidney. There are punctate calculi in the right kidney. A 5 mm stone is seen in the right bladder base with mild right hydroureteronephrosis. No hydronephrosis or perinephric fluid is present. The kidneys are normal in size, shape, and contour. The nonenhanced liver, gallbladder, spleen, pancreas, and adrenal glands are normal. The bowel shows a normal caliber and configuration. The appendix is normal. PELVIS: The pelvic viscera are normal. No free pelvic fluid is present. IMPRESSION 1. Evidence of recently passed right ureteral stone with moderate right hydroureteronephrosis seen. 2. Bilateral nephroliths. Edgar Quinn MD CT ORDERABLES * (ABNORMAL) URINE MICROSCOPIC ONLY REFLEX TO CULTURE (08/18/2020 7:05 AM CDT) Only the most recent of5 resultswithin the time period is included. RBC UA >100(A) None Seen, 0-2, 3-5 # /hpf 08/18/2020 7:23 AM CDT [facility] WBC UA 0-5 None Seen, 0-5 # /hpf 08/18/2020 7:23 AM CDT [facility] Bacteria UA None Seen None Seen 08/18/2020 7:23 AM CDT [facility] Squamous Epithelial Cells None Seen None Seen, 0-2, 3-5 /hpf 08/18/2020 7:23 AM CDT [facility] Mucus UA 1+ /LPF 08/18/2020 7:23 AM CDT [facility] Urine URINE SPECIMEN OBTAINED BY CLEAN CATCH PROCEDURE / Unknown Collection / Unknown 08/18/2020 7:05 AM CDT 08/18/2020 7:14 AM CDT Narrative [facility] - 08/18/2020 7:23 AM CDT Edgar Quinn MD LAB - URINALYSIS O RDERABLES Performing Organization Address [facility] [[email or web address]] de Phone Number [facility] [address] * (ABNORMAL) PT-INR (08/18/2020 7:05 AM CDT) Only the most recent of3 resultswithin the time period is included. PT 12.0 11.3 - 14.8 sec 08/18/2020 7:29 AM CDT [facility] INR 0.93(L) 2 - 3 08/18/2020 7:29 AM CDT [facility] Blood BLOOD SPECIMEN / Unknown Venipuncture / Unknown 08/18/2020 7:05 AM CDT 08/18/2020 7:14 AM CDT Narrative [facility] - 08/18/2020 7:29 AM CDT Recommended therapeutic INR ranges for Oral Anticoagulant Therapy: 2.0-3.0 For prevention of Thrombosis or Embolism and treatment of Venous Thrombosis. 2.5- 3.5 for prevention of Recurrent Embolism or treatment of patients with Mechanical Prosthetic Heart Valves. Edgar Quinn MD LAB - COAGULATION ORDERABLES Performing Organization Address [facility] [[email or web address]] de Phone Number [facility] [address] * (ABNORMAL) DIFFERENTIAL MANUAL (08/18/2020 7:05 AM CDT) Only the most recent of2 resultswithin the time period is included. WBC Auto 12.8(H) 4.0 - 10.0 x10E9/L 08/18/2020 9:21 AM CDT [facility] nRBC 1(H) <=0 /100 WBC 08/18/2020 9:21 AM CDT [facility] Neutrophils % Manual 51 40 - 75 % 08/18/2020 9:21 AM CDT [facility] Lymphocytes % Manual 36 19 - 53 % 08/18/2020 9:21 AM CDT [facility] Monocytes % Manual 11 5 - 13 % 08/18/2020 9:21 AM CDT [facility] Eosinophils % Manual 2 1 - 7 % 08/18/2020 9:21 AM CDT [facility] Neutrophils Absolute Manual 6.5(H) 1.6 - 6.1 x10E3/uL 08/18/2020 9:21 AM CDT [facility] Lymphocytes Absolute Manual 4.6(H) 1.2 - 3.7 x10E3/uL 08/18/2020 9:21 AM CDT [facility] Monocytes Absolute Manual 1.4(H) 0.2 - 0.9 x10E3/uL 08/18/2020 9:21 AM CDT [facility] Eosinophils Absolute Manual 0.3 0.0 - 0.5 x10E3/uL 08/18/2020 9:21 AM CDT [facility] Cells Counted 100 # cells 08/18/2020 9:21 AM CDT [facility] Platelet Estimation Adequate platelets Normal, Adequate platelets 08/18/2020 9:21 AM CDT [facility] WBC Morph Normal 08/18/2020 9:21 AM CDT [facility] Anisocytosis 1+(A) None 08/18/2020 9:21 AM CDT [facility] Blood BLOOD SPECIMEN / Unknown Venipuncture / Unknown 08/18/2020 7:05 AM CDT 08/18/2020 7:14 AM CDT Edgar Quinn MD LAB - HEMATOLOGY O RDERABLES [facility] [address] [place] [address], [facility] * CULTURE URINE (05/23/2020 3:27 PM CDT) Pathologist [facility] Culture Urine No growth day 2 TARIQ 05/25/2020 8:23 AM CDT [facility] Urine URINE SPECIMEN OBTAINED BY CLEAN CATCH PROCEDURE / Unknown Collection / Unknown 05/23/2020 3:27 PM CDT 05/23/2020 3:31 PM CDT Jen Pagan [employer] LAB - MICROBIOLO GY ORDERABLES [facility] [address] * US KIDNEYS WITH BLADDER [id number] (05/23/2020 1:17 PM CDT) Anatomical Region Laterality Modality Abdomen Ultrasound 05/23/2020 1:29 PM CDT Impressions 05/23/2020 2:11 PM CDT COMPARISON: No comparison. EXAMINATION: Multiple transverse and longitudinal sonographic images of kidneys were obtained. FINDINGS: Right kidney measures 12.3 x 5.4 x 6.6 cm in size. Left kidney measures 12.0 x 5.4 x 6.4 cm in size. No evidence of renal stone disease or hydronephrosis on left. Several echogenic foci are noted within the right kidney concerning for stones. Two large stones 1. 0.8 x 0.8 x 0.5 cm 2. 0.6 x 0.6 x 0.4 cm. Prominent right renal pelvis. No solid or cystic renal mass lesion. No perinephric fluid collection is seen. Left-sided ureteric jet was seen during this examination. Right ureteric jet could not be seen during this examination. CT scan is is suggested for further evaluation. IMPRESSION: Please see discussion above. Narrative 05/23/2020 2:11 PM CDT PROCEDURE: US KIDNEYS W BLADDER 05/23/2020 1:29 PM HISTORY: Unspecified abdominal pain. FINDINGS AND Procedure Note Juan C Amaro MD - 05/23/2020 PROCEDURE: US KIDNEYS W BLADDER 05/23/2020 1:29 PM HISTORY: Unspecified abdominal pain. FINDINGS AND IMPRESSION COMPARISON: No comparison. EXAMINATION: Multiple transverse and longitudinal sonographic images of kidneys were obtained. FINDINGS: Right kidney measures 12.3 x 5.4 x 6.6 cm in size. Left kidney measures 12.0 x 5.4 x 6.4 cm in size. No evidence of renal stone disease or hydronephrosis on left. Several echogenic foci are noted within the right kidney concerning for stones. Two large stones 1. 0.8 x 0.8 x 0.5 cm 2. 0.6 x 0.6 x 0.4 cm. Prominent right renal pelvis. No solid or cystic renal mass lesion. No perinephric fluid collection is seen. Left-sided ureteric jet was seen during this examination. Right ureteric jet could not be seen during this examination. CT scan is is suggested for further evaluation. IMPRESSION: Please see discussion above. Jen Pagan [employer]ER US ORDERABLES * CARDIAC RHYTHM STRIP ORDER (04/30/2020 9:29 AM CDT) Narrative 04/30/2020 9:29 AM CDT Ordered by an unspecified provider. Scanned Document CARDIAC SERVICES ORD ERABLES * (ABNORMAL) URINALYSIS REFLEX TO MICROSCOPIC NO CULTURE (04/19/2020 10:24 AM CDT) Color UA Yellow Straw, Yellow 04/19/2020 10:37 AM CDT [facility] Clarity UA Slt Cloudy(A) Clear 04/19/2020 10:37 AM CDT [facility] Glucose UA Negative Negative 04/19/2020 10:37 AM CDT [facility] Bilirubin UA Negative Negative 04/19/2020 10:37 AM CDT [facility] Ketone UA Negative Negative 04/19/2020 10:37 AM CDT [facility] Specific [place] UA 1.013 1.005 - 1.030 04/19/2020 10:37 AM CDT [facility] Blood UA 3+(A) Negative 04/19/2020 10:37 AM CDT [facility] pH UA 6.0 5.0 - 8.0 pH 04/19/2020 10:37 AM CDT [facility] Protein UA 1+(A) Negative 04/19/2020 10:37 AM CDT [facility] Urobilinogen UA Negative Negative mg/dL 04/19/2020 10:37 AM CDT [facility] Nitrite UA Negative Negative 04/19/2020 10:37 AM CDT [facility] Leukocyte UA Negative Negative 04/19/2020 10:37 AM CDT [facility] Urine Microscopy Urine microscopy to follow 04/19/2020 10:37 AM CDT [facility] Urine URINE SPECIMEN OBTAINED BY CLEAN CATCH PROCEDURE / Unknown Collection / Unknown 04/19/2020 10:24 AM CDT 04/19/2020 10:28 AM CDT Narrative [facility] - 04/19/2020 10:37 AM CDT Art Herrmann MD LAB - URINALYSIS O MACARIO Performing Organization Address [facility] Co de Phone Number [facility] [address] * (ABNORMAL) URINE MICROSCOPIC ONLY (04/19/2020 10:24 AM CDT) RBC UA >100(A) None Seen, 0-2, 3-5 # /hpf 04/19/2020 10:43 AM CDT [facility] WBC UA 11-20(A) None Seen, 0-5 # /hpf 04/19/2020 10:43 AM CDT [facility] Sperm UA Present(A ) Absent 04/19/2020 10:43 AM CDT [facility] Bacteria UA None Seen None Seen 04/19/2020 10:43 AM CDT [facility] Squamous Epithelial Cells 0-2 None Seen, 0-2, 3-5 /hpf 04/19/2020 10:43 AM CDT [facility] Mucus UA 2+ /LPF 04/19/2020 10:43 AM CDT [facility] Urine URINE SPECIMEN OBTAINED BY CLEAN CATCH PROCEDURE / Unknown Collection / Unknown 04/19/2020 10:24 AM CDT 04/19/2020 10:28 AM CDT Narrative [facility] - 04/19/2020 10:43 AM CDT Art Herrmann MD LAB - URINALYSIS O MAC[place]IO Performing Organization Address [facility] Co de Phone Number [facility] [address] * CT ABDOMEN PELVIS WO CONTRAST (04/19/2020 7:05 AM CDT) Anatomical Region Laterality Modality Abdomen, Pelvis Computed Tomogra phy 04/19/2020 7:40 AM CDT Impressions 04/19/2020 7:54 AM CDT 1. 3.5 mm calcification at the left ureterovesical junction projecting toward the inner margin of the urinary bladder wall. Mild left hydronephrosis, hydroureter, peripelvic stranding, and ureteral stranding. 2. Additional bilateral renal calcifications as discussed above. No right hydronephrosis. Narrative 04/19/2020 7:54 AM CDT IMAGING STUDIES: CT ABDOMEN PELVIS WO CONTRAST DATE: 04/19/2020 7:05 AM HISTORY: Left lower quadrant pain. 29-year-old male with left abdominal pain. Previously provided history of multiple sclerosis. COMPARISON: Abdominal obstruction series 04/03/2020. CTA chest 02/28/2020. CT abdomen and pelvis without contrast 11/23/2019. DISCUSSION: CT abdomen and pelvis without intravenous contrast. Coronal and sagittal reconstructions. No enteric contrast. Automated exposure control with radiation dose reduction. CHEST: No acute infiltrate or consolidation. Bilateral dependent lung atelectasis, greater on the left than right, and similar to previous exams. CARDIOVASCULAR: Heart size is normal. No pericardial effusion. Atherosclerotic calcification aorta and branch vessels. No focal aneurysm. Accessory right renal artery originating inferior to the main renal artery. UPPER ABDOMEN: No apparent acute abnormality of the unopacified liver, gallbladder, common bile duct, pancreas, spleen, and adrenal glands. GENITOURINARY: Bilateral renal calcifications. Mild left hydronephrosis with mild peripelvic stranding and left ureteral stranding. Minimal distention of the left ureter. 3.5 mm calcification at the left ureterovesical junction projecting toward the inner margin of the urinary bladder wall as for example on axial image 316, coronal image 56, and sagittal image 69. Adjacent calcifications in the upper pole left kidney of 6 mm combined size. 3.5 mm calcification in the lower pole left kidney. Additional punctate left renal calcifications. Largest right renal calcification is 3 mm in the lower pole. Additional 2.5 mm calcification in the mid right kidney. No right hydronephrosis or perinephric stranding. No right hydroureter or ureteral calcification. Urinary bladder otherwise within normal limits. Normal prostate. Mild stable fat in the superior left inguinal canal. LYMPHATIC: No apparent adenopathy. GASTROINTESTINAL: No apparent bowel obstruction or focal inflammation. Normal appendix. No free fluid in the abdomen or pelvis. SKELETAL: No acute skeletal abnormality. Procedure Note Juan Manuel Luz MD - 04/19/2020 IMAGING STUDIES: CT ABDOMEN PELVIS WO CONTRAST DATE: 04/19/2020 7:05 AM HISTORY: Left lower quadrant pain. 29-year-old male with left abdominal pain. Previously provided history of multiple sclerosis. COMPARISON: Abdominal obstruction series 04/03/2020. CTA chest 02/28/2020. CT abdomen and pelvis without contrast 11/23/2019. DISCUSSION: CT abdomen and pelvis without intravenous contrast. Coronal and sagittal reconstructions. No enteric contrast. Automated exposure control with radiation dose reduction. CHEST: No acute infiltrate or consolidation. Bilateral dependent lung atelectasis, greater on the left than right, and similar to previous exams. CARDIOVASCULAR: Heart size is normal. No pericardial effusion. Atherosclerotic calcification aorta and branch vessels. No focal aneurysm. Accessory right renal artery originating inferior to the main renal artery. UPPER ABDOMEN: No apparent acute abnormality of the unopacified liver, gallbladder, common bile duct, pancreas, spleen, and adrenal glands. GENITOURINARY: Bilateral renal calcifications. Mild left hydronephrosis with mild peripelvic stranding and left ureteral stranding. Minimal distention of the left ureter. 3.5 mm calcification at the left ureterovesical junction projecting toward the inner margin of the urinary bladder wall as for example on axial image 316, coronal image 56, and sagittal image 69. Adjacent calcifications in the upper pole left kidney of 6 mm combined size. 3.5 mm calcification in the lower pole left kidney. Additional punctate left renal calcifications. Largest right renal calcification is 3 mm in the lower pole. Additional 2.5 mm calcification in the mid right kidney. No right hydronephrosis or perinephric stranding. No right hydroureter or ureteral calcification. Urinary bladder otherwise within normal limits. Normal prostate. Mild stable fat in the superior left inguinal canal. LYMPHATIC: No apparent adenopathy. GASTROINTESTINAL: No apparent bowel obstruction or focal inflammation. Normal appendix. No free fluid in the abdomen or pelvis. SKELETAL: No acute skeletal abnormality. IMPRESSION 1. 3.5 mm calcification at the left ureterovesical junction projecting toward the inner margin of the urinary bladder wall. Mild left hydronephrosis, hydroureter, peripelvic stranding, and ureteral stranding. 2. Additional bilateral renal calcifications as discussed above. No right hydronephrosis. Art Herrmann MD CT ORDERABLES * (ABNORMAL) LIPASE BLOOD (04/19/2020 6:25 AM CDT) Only the most recent of2 resultswithin the time period is included. Lipase 249(H) 8 - 78 U/L 04/19/2020 6:52 AM CDT [facility] Blood BLOOD SPECIMEN / Unknown Venipuncture / Unknown 04/19/2020 6:25 AM CDT 04/19/2020 6:31 AM CDT Art Herrmann MD LAB - CHEMISTRY OR DERABLES Performing Organization Address [facility] Co de Phone Number [facility] [address] * AMYLASE BLOOD (04/19/2020 6:24 AM CDT) Amylase 116 25 - 125 U/L 04/19/2020 7:07 AM CDT [facility] Blood BLOOD SPECIMEN / Unknown Venipuncture / Unknown 04/19/2020 6:24 AM CDT 04/19/2020 7:02 AM CDT Art Herrmann MD LAB - CHEMISTRY OR DERABLES Performing Organization Address [facility] Phone Number [facility] [address] * XR ABDOMEN 2 VW OBSTRUCTION [id number] (04/03/2020 8:58 AM CDT) Anatomical Region Laterality Modality Abdomen Radiographic Sujey ging 04/03/2020 9:03 AM CDT Impressions 04/03/2020 9:10 AM CDT 1. Nonspecific nonobstructive bowel gas pattern. No abdominal free air. 2. Previously identified bilateral renal calcifications not definitively visualized on current radiograph. Ultrasound and/or CT abdomen and pelvis may be helpful for evaluation if suspect urinary tract abnormality. Narrative 04/03/2020 9:10 AM CDT IMAGING STUDIES: XR ABD OBSTRUCTION SERIES 2VW DATE: 04/03/2020 8:58 AM HISTORY: Epigastric pain .29-year-old male with epigastric pain and diarrhea. History of kidney stones. COMPARISON: CTA chest 02/28/2020. CT abdomen and pelvis without contrast 11/23/2019. DISCUSSION: Upright and supine views of the abdomen and pelvis. No acute infiltrate or consolidation in the lung bases. No abdominal free air. No apparent obstruction. 4 mm calcification in the upper pole left kidney on previous CT studies. This may be obscured by the 12th rib on the current study. Less than 3 mm nonobstructing calcifications in the mid and lower pole right kidney on prior CT study are not definitively visualized on current radiographic study. No appreciable calcification in the expected course of the ureters or within the urinary bladder. Leftward curvature lumbar spine with apex approximately L2-3 level. Procedure Note Juan Manuel Luz MD - 04/03/2020 IMAGING STUDIES: XR ABD OBSTRUCTION SERIES 2VW DATE: 04/03/2020 8:58 AM HISTORY: Epigastric pain .29-year-old male with epigastric pain and diarrhea. History of kidney stones. COMPARISON: CTA chest 02/28/2020. CT abdomen and pelvis without contrast 11/23/2019. DISCUSSION: Upright and supine views of the abdomen and pelvis. No acute infiltrate or consolidation in the lung bases. No abdominal free air. No apparent obstruction. 4 mm calcification in the upper pole left kidney on previous CT studies. This may be obscured by the 12th rib on the current study. Less than 3 mm nonobstructing calcifications in the mid and lower pole right kidney on prior CT study are not definitively visualized on current radiographic study. No appreciable calcification in the expected course of the ureters or within the urinary bladder. Leftward curvature lumbar spine with apex approximately L2-3 level. IMPRESSION 1. Nonspecific nonobstructive bowel gas pattern. No abdominal free air. 2. Previously identified bilateral renal calcifications not definitively visualized on current radiograph. Ultrasound and/or CT abdomen and pelvis may be helpful for evaluation if suspect urinary tract abnormality. Hiren Dillon MD DIAGNOSTIC IMAGING O RDERALILLIAN * C DIFFICILE BY PCR (03/28/2020 9:54 AM CDT) C difficile Toxin B Gene Negative Negative 03/28/2020 12:21 PM CDT [facility] Stool STOOL SPECIMEN / Unknown Collection / Unknown 03/28/2020 9:54 AM CDT 03/28/2020 10:07 AM CDT Narrative [facility] - 03/28/2020 12:21 PM CDT C. difficile target DNA sequences are not detected. Hiren Dillon MD LAB - MICROBIOLOGY O RDERABLES [facility] [address] [place] [address], [facility] * CT ANGIO CHEST [id number] (02/28/2020 10:46 AM CDT) Anatomical Region Laterality Modality Chest Computed Tomogra phy 02/28/2020 11:1 2 AM CDT Impressions 02/28/2020 11:31 AM CDT 1. No apparent central pulmonary embolus. Refer to discussion above. 2. No acute pulmonary infiltrate or consolidation. Bilateral dependent subsegmental atelectasis. Narrative 02/28/2020 11:31 AM CDT IMAGING STUDIES: CT ANGIO CHEST DATE: 02/28/2020 10:47 AM HISTORY: Multiple sclerosis. 29-year-old male with cough and hemoptysis for 4 weeks. Person of interest for COVID-19 infection. History of multiple sclerosis. COMPARISON: CT abdomen and pelvis without contrast 11/23/2019 and with contrast 10/17/2019. DISCUSSION: CTA chest following intravenous administration of 50 ml Isovue 300 contrast. Coronal and sagittal reconstructions. Automated exposure control with radiation dose reduction. CARDIAC: Heart size is within normal limits. No pericardial effusion. AORTA: No aortic aneurysm. Contrast timing to opacify the pulmonary arteries rather than the aorta. PULMONARY ARTERIES: Suboptimal opacification of the distal segmental and of the subsegmental branches limiting evaluation for pulmonary embolus. No apparent pulmonary embolus to the level of mid segmental pulmonary artery branches. LYMPHATIC: No mediastinal or axillary adenopathy. PULMONARY and PLEURA: Bilateral dependent lung atelectasis in the upper lobes and lower lobes. No focal consolidation or infiltrate otherwise. No pleural effusion or pneumothorax. No findings to suggest acute pneumonia. SKELETAL: No acute skeletal abnormality. UPPER ABDOMEN: Nonobstructive calcifications in the upper pole left kidney having similar appearance to prior study. No acute abnormality in the upper abdomen. Procedure Note Juan Manuel Luz MD - 02/28/2020 IMAGING STUDIES: CT ANGIO CHEST DATE: 02/28/2020 10:47 AM HISTORY: Multiple sclerosis. 29-year-old male with cough and hemoptysis for 4 weeks. Person of interest for COVID-19 infection. History of multiple sclerosis. COMPARISON: CT abdomen and pelvis without contrast 11/23/2019 and with contrast 10/17/2019. DISCUSSION: CTA chest following intravenous administration of 50 ml Isovue 300 contrast. Coronal and sagittal reconstructions. Automated exposure control with radiation dose reduction. CARDIAC: Heart size is within normal limits. No pericardial effusion. AORTA: No aortic aneurysm. Contrast timing to opacify the pulmonary arteries rather than the aorta. PULMONARY ARTERIES: Suboptimal opacification of the distal segmental and of the subsegmental branches limiting evaluation for pulmonary embolus. No apparent pulmonary embolus to the level of mid segmental pulmonary artery branches. LYMPHATIC: No mediastinal or axillary adenopathy. PULMONARY and PLEURA: Bilateral dependent lung atelectasis in the upper lobes and lower lobes. No focal consolidation or infiltrate otherwise. No pleural effusion or pneumothorax. No findings to suggest acute pneumonia. SKELETAL: No acute skeletal abnormality. UPPER ABDOMEN: Nonobstructive calcifications in the upper pole left kidney having similar appearance to prior study. No acute abnormality in the upper abdomen. IMPRESSION 1. No apparent central pulmonary embolus. Refer to discussion above. 2. No acute pulmonary infiltrate or consolidation. Bilateral dependent subsegmental atelectasis. Sarah Arce MD CT ORDERABLES * (ABNORMAL) EKG 12-LEAD (02/28/2020 9:52 AM CDT) Only the most recent of2 resultswithin the time period is included. Ventricular Rate 58 BPM [facility] Atrial Rate 58 BPM [facility] P-R Interval 162 ms [facility] QRS Duration ms 82 ms [facility] Q-T Interval ms 430 ms [facility] QTC Calculation (Bezet) 422 ms [facility] Calculated P [place] 21 degrees [facility] Calculated R [place] -8 degrees [facility] Calculated T [place] 15 degrees [facility] Interpretation EKG Sinus bradycardia Septal infarct (cited on or before 28-FEB-2020) Abnormal ECG When compared with ECG of 28-FEB-2020 09:51, (Unconfirmed) No significant change was found Confirmed by Seth Krueger ([id number]) on 02/28/2020 2:24:56 PM [facility] 02/28/2020 9:52 AM CDT 02/28/2020 2:24 PM CDT Sarah Arce MD ECG ORDERABLES Performing Organization Address [facility] Co de Phone Number [facility] * COVID-19 VIRUS (CORONAVIRUS) (02/28/2020 9:43 AM CDT) Pathologist [facility] SARS-COV-2 2019-nCoV Not Detected 2019-nCoV Not Detected 02/29/2020 2:14 AM CDT [facility] [place] Microbiology SPECIMEN FROM NASOPHARYNGEAL STRUCTURE / Unknown Collection / Unknown 02/28/2020 9:43 AM CDT 02/28/2020 9:54 AM CDT Sarah Arce MD LAB - MICROBIOLOGY O RDERABLES Performing Organization Address [facility] [[email or web address]] de Phone Number [facility] [address] [place] [address] * CULTURE BLOOD (02/28/2020 9:40 AM CDT) Only the most recent of4 resultswithin the time period is included. Pathologist [facility] Culture No growth day 5 TARIQ 03/05/2020 9:15 AM CDT [facility] Blood PERIPHERAL BLOOD / Unknown Venipuncture / Unknown 02/28/2020 9:40 AM CDT 02/28/2020 9:54 AM CDT Sarah Arce MD LAB - MICROBIOLOGY O RDERABLES Performing Organization Address [facility] Co de Phone Number [facility] [address] [place] [address] * PROCALCITONIN LEVEL (02/28/2020 9:36 AM CDT) Only the most recent of2 resultswithin the time period is included. Pathologist [facility] Procalcitonin 0.03 <=0.10 ng/mL 02/28/2020 10:48 AM CDT [facility] Blood BLOOD SPECIMEN / Unknown Venipuncture / Unknown 02/28/2020 9:36 AM CDT 02/28/2020 9:54 AM CDT Narrative [facility] - 02/28/2020 10:48 AM CDT If baseline PCT is - >2.0 ng/mL: A PCT level above 2.0 ng/mL on the first day of ICU admission is associated with a high risk for progression to severe sepsis and/or septic shock. - <0.5 ng/mL: A PCT level below 0.5 ng/mL on the first day of ICU admission is associated with a low risk for progression to severe sepsis and/or septic shock. If the Procalcitonin measurement is performed shortly after systemic infection process has started (usually less than 6 hours), these values may still be low. As various non-infectious conditions are known to induce procalcitonin as well, Procalcitonin levels between 0.50 ng/mL and 2.00 ng/mL should be reviewed carefully to take into account the specific clinical background and condition(s) of the individual patient. The change in procalcitonin (PCT) concentration over time provides support in decision making on antibiotic discontinuation for suspected or confirmed septic patients and for suspected or confirmed lower respiratory tract infection (LRTI). Follow-up samples should be tested once every 1-2 days based upon physician discretion taking into account the patient's evolution and progress. Discontinuation of antibiotic therapy may be considered for suspected or confirmed septic patients if the current PCT is <= 0.5 ng/mL or <= 0.25 ng/mL for confirmed LRTI. If the PCT delta drop is > 80% in either condition, discontinuation of antibiotic therapy may be indicated. Duration of antibiotics should not be determined solely on PCT; established guidelines for the indication should be followed. Results should be interpreted in the context of a patient's clinical status and other laboratory tests. PCT peak: Highest observed PCT concentration PCT current: Most recent PCT concentration Calculate delta PCT using the following equation: Delta PCT = PCT Peak - PCT current X 100% PCT Peak The Change in Procalcitonin Calculator is available at [email or web address] If clinical picture has not improved and PCT remains high, reevaluate and consider treatment failure or other causes. Sarah Arce MD LAB - CHEMISTRY MESHA AKHTAR [facility] Organization Address City/State/ZIP Co de Phone Number [facility] [address] * TROPONIN I (02/28/2020 9:36 AM CDT) Only the most recent of2 resultswithin the time period is included. Troponin I <0.012 <=0.049 ng/mL 02/28/2020 10:35 AM CDT [facility] Blood BLOOD SPECIMEN / Unknown Venipuncture / Unknown 02/28/2020 9:36 AM CDT 02/28/2020 9:54 AM CDT Narrative [facility] - 02/28/2020 10:35 AM CDT Note: Diagnosis of myocardial infarction requires symptoms of ischemia or EKG changes of ischemia and Troponin I >99th percentile of normal with <10% coefficient of variation (CV) (0.05 ng/mL) Troponin should be drawn on initial assessment and 3-6 hours later as clinically indicated. Any condition resulting in myocardial cell damage can increase cardiac troponin levels. In addition to myocardial infarction, these include but are not limited to congestive heart failure, arrhythmia, myocarditis, and non-cardiac related causes such as pulmonary embolism, renal failure and sepsis. Sarah Arce MD LAB - CHEMISTRY MESHA AKHTAR Performing Organization Address City/[facility]/ZIP Co de Phone Number [facility] [address] * LACTIC ACID BLOOD (02/28/2020 9:36 AM CDT) Only the most recent of4 resultswithin the time period is included. Pathologist [facility] Lactic Acid 1.26 0.5 - 2 mmol/L 02/28/2020 10:21 AM CDT [facility] Blood BLOOD SPECIMEN / Unknown Venipuncture / Unknown 02/28/2020 9:36 AM CDT 02/28/2020 9:57 AM CDT Sarah Arce MD LAB - CHEMISTRY MESHA AKHTAR [facility] [address] * CT ABDOMEN AND PELVIS WITH IV CONTRAST (10/17/2019 5:21 PM RAILWAY SIGNAL TECHNICIAN) Anatomical Region Laterality Modality Abdomen, Pelvis Computed Tomogra phy 10/17/2019 5:22 PM RAILWAY SIGNAL TECHNICIAN Impressions 10/17/2019 5:23 PM RAILWAY SIGNAL TECHNICIAN 4 mm distal right ureterovesical junction stone with mild right-sided hydronephrosis. Narrative 10/17/2019 5:23 PM RAILWAY SIGNAL TECHNICIAN IMAGING STUDIES: CT ABDOMEN PELVIS W CONTRAST DATE: 10/17/2019 5:21 PM HISTORY: Right lower quadrant pain COMPARISON: No comparisons CONTRAST: 72 mL Isovue-300 IV Radiation dose reduction technique was utilized. FINDINGS: A 4 mm distal right ureteral vesicle junction stone is present with mild right-sided hydronephrosis. Punctate mid pole right kidney stone present and 4 mm upper pole nonobstructing left kidney stone present. Nonobstructive bowel gas pattern with no free air or free fluid. Appendix normal in size. Aorta also normal. No CT evidence of acute cholecystitis. Procedure Note Eugenio Adames MD - 10/17/2019 IMAGING STUDIES: CT ABDOMEN PELVIS W CONTRAST DATE: 10/17/2019 5:21 PM HISTORY: Right lower quadrant pain COMPARISON: No comparisons CONTRAST: 72 mL Isovue-300 IV Radiation dose reduction technique was utilized. FINDINGS: A 4 mm distal right ureteral vesicle junction stone is present with mild right-sided hydronephrosis. Punctate mid pole right kidney stone present and 4 mm upper pole nonobstructing left kidney stone present. Nonobstructive bowel gas pattern with no free air or free fluid. Appendix normal in size. Aorta also normal. No CT evidence of acute cholecystitis. IMPRESSION 4 mm distal right ureterovesical junction stone with mild right-sided hydronephrosis. Jen Pagan PIT LABORER-VARNISH FILTERER CT ORDERABLES * TOPIRAMATE LEVEL (10/17/2019 6:33 AM RAILWAY SIGNAL TECHNICIAN) Topiramate 8.0 5.0 - 20.0 ug/mL 10/18/2019 10:21 AM RAILWAY SIGNAL TECHNICIAN [facility]) Comment: INTERPRETIVE INFORMATION: Topiramate Therapeutic range: 5.0-20.0 ug/mL Toxic: Not well established Pharmacokinetics varies widely, particularly with co-medications, age, and/or compromised renal function. Adverse effects may include somnolence, fatigue, and dizziness. Performed by [facility], [address] [place] [address] [email or web address], Gareth Phelps MD, Lab. Director Blood BLOOD SPECIMEN / Unknown Venipuncture / Unknown 10/17/2019 6:33 AM RAILWAY SIGNAL TECHNICIAN 10/17/2019 6:41 AM RAILWAY SIGNAL TECHNICIAN Hiren Dillon MD LAB - THERAPEUTIC DR HOPKINS MONITORING ORDERABLES [facility] ([facility]) [address] [place] [address], [facility] * (ABNORMAL) BASIC METABOLIC PANEL (CALCIUM TOTAL) (07/22/2019 7:43 AM CDT) Glucose 109 70 - 125 mg/dL 07/22/2019 8:30 AM CDT [facility] Sodium 137 136 - 145 mmol/L 07/22/2019 8:30 AM CDT [facility] Potassium 4.0 3.4 - 4.5 mmol/L 07/22/2019 8:30 AM CDT [facility] Chloride 105 98 - 107 mmol/L 07/22/2019 8:30 AM CDT [facility] CO2 26 22 - 29 mmol/L 07/22/2019 8:30 AM CDT [facility] Calcium 8.36(L) 8.4 - 10.2 mg/dL 07/22/2019 8:30 AM CDT [facility] Anion Gap 10 10 - 20 mmol/L 07/22/2019 8:30 AM CDT [facility] BUN 21.0 8.4 - 25.7 mg/dL 07/22/2019 8:30 AM CDT [facility] Creatinine 0.84 0.72 - 1.25 mg/dL 07/22/2019 8:30 AM CDT [facility] eGFR by MDRD >60 >60 mL/min/1.7 3m2 07/22/2019 8:30 AM CDT [facility] eGFR by MDRD >60 >60 mL/min/1.7 3m2 07/22/2019 8:30 AM CDT [facility] Blood BLOOD SPECIMEN / Unknown Lab Venipuncture / Unknown 07/22/2019 7:43 AM CDT 07/22/2019 7:53 AM CDT Skyler Ibarra DO LAB - CHEMISTRY MESHA AKHTAR Performing Organization Address [facility]/ZIP Co de Phone Number [facility] 1 Rigoberto Velazquez [address] * VDRL CSF W REFLEX TO TITER (07/19/2019 12:00 PM CDT) VDRL CSF Non Reactive Non Reactive 07/22/2019 6:01 PM CDT [facility]) Comment: Because the VDRL was Non Reactive, the VDRL titer was not performed. Performed by [facility], [address] [place] [address] [email or web address], Gareth Phelps MD, Lab. Director Cerebral spinal fluid CEREBROSPINAL FLUID SPECIMEN / Unknown Collection / Unknown 07/19/2019 12:00 PM CDT 07/19/2019 1:04 PM CDT Hiren Dillon MD LAB - BODY FLUID ORD ERABLES Performing Organization Address [facility] de Phone Number [facility]) [address] [place] [address] * CRYPTOCOCCUS ANTIGEN CSF (07/19/2019 12:00 PM CDT) Cryptococcus Antigen CSF Negative Negative 07/21/2019 1:53 PM CDT [facility]) Comment: A Negative result does not exclude the possibility of Cryptococcal infection. Performed by [facility], [address] [place] [id number] [email or web address], Gareth Phelps MD, Lab. Director Cerebral spinal fluid CEREBROSPINAL FLUID SPECIMEN / Unknown Collection / Unknown 07/19/2019 12:00 PM CDT 07/19/2019 1:03 PM CDT Hiren Dillon MD LAB - MICROBIOLOGY O RDERABLES Performing Organization Address [facility]/ZIP Co de Phone Number [facility]) [address] * MENINGITIS ENCEPHALITIS PCR PANEL CSF (07/19/2019 12:00 PM CDT) Escherichia coli K1 PCR Not Detected 07/21/2019 6:06 PM CDT [facility] ([facility]) Haemophilus influenzae PCR Not Detected 07/21/2019 6:06 PM CDT [facility] ([facility]) Listeria monocytogenes PCR Not Detected 07/21/2019 6:06 PM CDT [facility] ([facility]) Neisseria meningitidis PCR Not Detected 07/21/2019 6:06 PM CDT [facility] ([facility]) Streptococcus agalactiae PCR Not Detected 07/21/2019 6:06 PM CDT [facility] ([facility]) Streptococcus pneumoniae PCR Not Detected 07/21/2019 6:06 PM CDT [facility] ([facility]) Cytomegalovirus PCR Not Detected 07/21/2019 6:06 PM CDT [facility] ([facility]) Enterovirus PCR Not Detected 07/21/2019 6:06 PM CDT [facility] ([facility]) Herpes Simplex Virus 1 PCR Not Detected 07/21/2019 6:06 PM CDT [facility] ([facility]) Herpes Simplex Virus 2 PCR Not Detected 07/21/2019 6:06 PM CDT [facility] ([facility]) Human Herpesvirus 6 PCR Not Detected 07/21/2019 6:06 PM CDT [facility] ([facility]) Human parechovirus PCR Not Detected 07/21/2019 6:06 PM CDT [facility] ([facility]) Varicella zoster virus PCR Not Detected 07/21/2019 6:06 PM CDT [facility] ([facility]) Cryptococcus neoformans/gattii PCR Not Detected 07/21/2019 6:06 PM CDT [facility]) Comment: INTERPRETIVE INFORMATION: Meningitis Encephalitis Panel by PCR The meningitis/encephalitis panel is NOT a replacement for CSF bacterial and/or fungal culture and Cryptococcal antigen testing for at-risk patients. Non-K1 E. coli serotypes and non-encapsulated strains of Neisseria meningitidis are NOT detected. The panel does NOT differentiate active from latent herpes virus infections. Test results should be interpreted in the context of host factors and other laboratory information. Performed by [facility], [facility] [place] [address] [email or web address], Gareth Phelps MD, Lab. Director Cerebral spinal fluid CEREBROSPINAL FLUID SPECIMEN / Unknown Collection / Unknown 07/19/2019 12:00 PM CDT 07/19/2019 1:04 PM CDT Hiren Dillon MD LAB - MICROBIOLOGY O RDERABLES Performing Organization Address [facility] [[email or web address]] de Phone Number [facility]) [address] * NEUROMYELITIS OPTICA APQ4 IGG CSF W/RFLX (07/19/2019 12:00 PM CDT) Neuromyelitis Optica/AQP4 IgG CSF < 1:1 07/21/2019 4:06 PM CDT [facility] ([facility]) Comment: Aquaporin-4 Receptor Antibody, IgG is not detected. No further testing will be performed. INTERPRETIVE INFORMATION: Neuromyelitis Optica/AQP4-IgG, CSF Rflx Diagnosis of neuromyelitis optica (NMO) requires the presence of longitudinally extensive acute myelitis (lesions extending over 3 or more vertebral segments) and optic neuritis. Approximately 75 percent of patients with NMO express antibodies to the aquaporin-4 (AQP4) receptor. While the absence of AQP4 receptor antibodies does not rule out a diagnosis of NMO, presence of this antibody is diagnostic for NMO. See Compliance Statement B: [email or web address] Performed by [facility], [address] [place] [address] [email or web address], Gareth Phelps MD, Lab. Director Cerebral spinal fluid CEREBROSPINAL FLUID SPECIMEN / Unknown Collection / Unknown 07/19/2019 12:00 PM CDT 07/19/2019 1:04 PM CDT Hiren Dillon MD LAB - BODY FLUID ORD ERABLES Performing Organization Address [facility] Co de Phone Number [facility] ([facility]) [address] [place] [address] * (ABNORMAL) OLIGOCLONAL BANDS CSF+BLOOD PANEL (07/19/2019 12:00 PM CDT) IgG CSF 1.4 0.0 - 6.0 mg/dL 07/22/2019 7:03 PM [facility] ([facility]) Oligoclonial Bands Number 5(H) 0 - 1 Bands 07/22/2019 7:03 PM [facility] ([facility]) IgG 817 768 - 1632 mg/dL 07/22/2019 7:03 PM [facility] ([facility]) Comment: REFERENCE INTERVAL: Immunoglobulin G Access complete set of age- and/or gender-specific reference intervals for this test in the [employer] [facility] Test Directory ([employer]erate). Albumin 3640 3500 - 5200 mg/dL 07/22/2019 7:03 PM T [facility] ([facility]) Albumin CSF 11 0 - 35 mg/dL 07/22/2019 7:03 PM [facility] ([facility]) Albumin Index 3.0 0.0 - 9.0 ratio 07/22/2019 7:03 PM [facility] ([facility]) IgG Index 0.57 0.28 - 0.66 ratio 07/22/2019 7:03 PM [facility] ([facility]) IgG/Albumin Ratio CSF 0.13 0.09 - 0.25 ratio 07/22/2019 7:03 PM [facility] ([facility]) Oligoclonal Bands Positive (A) Negative 07/22/2019 7:03 PM [facility] ([facility]) Synthesis Rate <0.0 <=8.0 mg/d 07/22/2019 7:03 PM [facility] ([facility]) Interpretation Oligoclonial See Note 07/22/2019 7:03 PM [facility] ([facility]) Comment: Isoelectric focusing/immunofixation reveals two or more unique bands in the CSF but no bands in the serum. This is consistent with intrathecal synthesis of immunoglobulin and is considered to be a positive result for oligoclonal bands. Oligoclonal bands are present in approximately 95 percent of patients with multiple sclerosis but may also be present in the CSF from patients with viral or bacterial meningoencephalitis, subacute sclerosing panencephalitis, neurosyphilis, Guillain-[place] syndrome, or meningeal carcinomatosis. Performed by [facility], [address] [place] [address],[place] [address] [email or web address], Gareth Phelps MD, Lab. Director Other MISCELLANEOUS SAMPLES / Unknown Collection / Unknown 07/19/2019 12:00 PM CDT 07/19/2019 1:08 PM CDT Hiren Dillon MD LAB - BODY FLUID ORD ERABLES [facility]) [address] [place] [address], [facility] * GRAM STAIN (LAB ORDERED) (07/19/2019 12:00 PM CDT) Gram Stain No organisms seen 07/19/2019 2:11 PM CDT [facility] Gram Stain Rare White blood cells 07/19/2019 2:11 PM CDT [facility] Microbiology CEREBROSPINAL FLUID SPECIMEN / Unknown Collection / Unknown 07/19/2019 12:00 PM CDT 07/19/2019 1:04 PM CDT Hiren Dillon MD LAB - MICROBIOLOGY O RDERALILLIAN [facility] [address] [place], [place] [address] * CULTURE CSF+GRAM STAIN (07/19/2019 12:00 PM CDT) Pathologist [facility] Culture No growth day 3 TARIQ 07/22/2019 6:58 AM CDT [facility] Cerebral spinal fluid CEREBROSPINAL FLUID SPECIMEN / Unknown Collection / Unknown 07/19/2019 12:00 PM CDT 07/19/2019 1:04 PM CDT Hiren Dillon MD LAB - MICROBIOLOGY O RDERALILLIAN [facility] [address] [place], [place] [address] * LYME DISEASE IGG/IGM AB PANEL CSF WB (07/19/2019 12:00 PM CDT) Borrelia burgdorferi Antibody IgG IB Negative Negative 07/21/2019 2:31 PM CDT [facility]) Comment: Band(s) present: NONE (Insufficient number of bands for positive result) INTERPRETIVE INFORMATION: Borrelia burgdorferi Ab, IgG, IB (CSF) For this assay, a positive result is reported when any 5 or more of the following 10 bands are present: 18, 23, 28, 30, 39, 41, 45, 58, 66, or 93 kDa. All other banding patterns are reported as negative. The detection of antibodies to Borrelia burgdorferi in cerebrospinal fluid may indicate central nervous system infection. However, consideration must be given to possible contamination by blood or transfer of serum antibodies across the blood-brain barrier. Test developed and characteristics determined by [facility]. See Compliance Statement B: Numerate/CS Borrelia burgdorferi Antibody IgM IB CSF Negative Negative 07/21/2019 2:31 PM CDT [facility] ([facility]) Comment: Band(s) present: NONE (Insufficient number of bands for positive result) INTERPRETIVE INFORMATION: Borrelia burgdorferi Ab, IgM, IB (CSF) For this assay, a positive result is reported when any 2 or more of the following bands are present: 23, 39, 41 kDa. All other banding paterns are reported as negative. The detection of antibodies to Borrelia burgdorferi in cerebrospinal fluid may indicate central nervous system infection. However, consideration must be given to possible contamination by blood or transfer of serum antibodies across the blood-brain barrier. Test developed and characteristics determined by [facility]. See Compliance Statement B: [email or web address]/ Performed by [facility], [address] [place] [address] [email or web address], Gareth Phelps MD, Lab. Director Cerebral spinal fluid CEREBROSPINAL FLUID SPECIMEN / Unknown Collection / Unknown 07/19/2019 12:00 PM CDT 07/19/2019 1:04 PM CDT Hiren Dillon MD LAB - BODY FLUID ORD ERABLES [facility]) [address] * LYME DISEASE AB SCREEN CSF (07/19/2019 12:00 PM CDT) Borrelia burgdorferi Antibody CSF 0.04 <=0.99 PEÑA 07/21/2019 10:32 AM CDT [facility] ([facility]) Comment: INTERPRETIVE INFORMATION: Borrelia burgdorferi Abs, CLAIRE, CSF 0.99 PEÑA or less: ......... Negative - Antibody to B. burgdorferi not detected. 1.00 - 1.20 PEÑA ........... Equivocal - Repeat testing in 10-14 days may be helpful. 1.21 PEÑA or greater: ...... Positive - Probable presence of antibody to B. burgdorferi detected. The detection of antibodies to B. burgdorferi in cerebrospinal fluid may indicate central nervous system infection. However, consideration must be given to possible contamination by blood or transfer of serum antibodies across the blood-brain barrier. Current CDC recommendations for the serologic diagnosis of Lyme disease are to screen with a polyvalent CLAIRE test and confirm equivocal and positive results with immunoblot. Both IgM and IgG immunoblots should be performed on samples less than 4 weeks after appearance of erythema migrans. Only IgG immunoblot should be performed on samples greater than 4 weeks after the disease onset. IgM immunoblot in the chronic stage is not recommended and does not aid in the diagnosis of neuroborreliosis or chronic Lyme disease. Please submit requests for appropriate immunoblot testing within 10 days. Test developed and characteristics determined by [facility]. See Compliance Statement B: Num[employer]/CS Performed by [facility], [address] [place] [address] [email or web address], Gareth Phelps MD, Lab. Director Cerebral spinal fluid CEREBROSPINAL FLUID SPECIMEN / Unknown Collection / Unknown 07/19/2019 12:00 PM CDT 07/19/2019 1:03 PM CDT Hiren Dillon MD LAB - BODY FLUID ORD ERABLES [facility] ([facility]) [address] * [place] ANTIBODY IGG/IGM CSF PANEL (07/19/2019 12:00 PM CDT) West Nile IgG Ab CSF 0.15 <=1.29 IV 07/21/2019 2:50 PM CDT [facility] ([facility]) Comment: INTERPRETIVE INFORMATION: West Nile Virus Ab IgG by CLAIRE, CSF 1.29 IV or less ....... Negative: No significant level of West Nile virus IgG antibody detected. 1.30 - 1.49 IV ........ Equivocal: Questionable presence of West Nile virus IgG antibody detected. Repeat testing in 10-14 days may be helpful. 1.50 IV or greater .... Positive: Presence of IgG antibody to West Nile virus detected, suggestive of current or past infection. This test is intended to be used as a semi-quantitative means of detecting West Nile virus-specific IgG in CSF samples in which there is a clinical suspicion of West Nile Virus infection. This test should not be used solely for quantitative purposes, nor should the results be used without correlation to clinical history or other data. Because other members of the Flaviviridae family, such as Erie encephalitis virus, show extensive cross-reactivity with West Nile virus, serologic testing specific for these species should be considered. The detection of antibodies to West Nile virus in cerebrospinal fluid may indicate central nervous system infection. However, consideration must be given to possible contamination by blood or transfer of serum antibodies across the blood-brain barrier. Test developed and characteristics determined by [facility]. See Compliance Statement B: [email or web address] West Nile IgM Ab CSF 0.01 <=0.89 IV 07/21/2019 2:50 PM CDT [facility] ([facility]) Comment: INTERPRETIVE INFORMATION: West Nile Virus Ab IgM by CLAIRE, CSF 0.89 IV or less ...... Negative - No significant level of West Nile virus IgM antibody detected. 0.90-1.10 IV ......... Equivocal - Questionable presence of West Nile virus IgM antibody detected. Repeat testing in 10-14 days may be helpful. 1.11 IV or greater ... Positive - Presence of IgM antibody to West Nile virus detected, suggestive of current or recent infection. This test is intended to be used as a semi-quantitative means of detecting West Nile virus-specific IgM in CSF samples in which there is a clinical suspicion of West Nile virus infection. This test should not be used solely for quantitative purposes, nor should the results be used without correlation to clinical history or other data. Because other members of the Flaviviridae family, such as Erie encephalitis virus, show extensive cross-reactivity with West Nile virus, serologic testing specific for these species should be considered. The detection of antibodies to West Nile virus in cerebrospinal fluid may indicate central nervous system infection. However, consideration must be given to possible contamination by blood or transfer of serum antibodies across the blood-brain barrier. Test developed and characteristics determined by [facility]. See Compliance Statement B: [email or web address] Performed by [facility] [employer], [address] [place] [id number] [email or web address], Gareth Phelps MD, Lab. Director Cerebral spinal fluid CEREBROSPINAL FLUID SPECIMEN / Unknown Collection / Unknown 07/19/2019 12:00 PM CDT 07/19/2019 1:04 PM CDT Hiren Dillon MD LAB - BODY FLUID ORD ERABLES [facility] [employer] ([facility]) [address] [place] [address], [facility] * IGG INDEX CSF PANEL (07/19/2019 12:00 PM CDT) IgG 813 768 - 1632 mg/dL 07/21/2019 2:14 PM CDT [employer] [facility] ([facility]) Comment: REFERENCE INTERVAL: Immunoglobulin G Access complete set of age- and/or gender-specific reference intervals for this test in the [employer] [facility] Test Directory (Numerate). IgG CSF 1.6 0.0 - 6.0 mg/dL 07/21/2019 2:14 PM CDT [facility] ([facility]) Albumin 3670 3500 - 5200 mg/dL 07/21/2019 2:14 PM CDT [facility] ([facility]) Albumin CSF 11 0 - 35 mg/dL 07/21/2019 2:14 PM CDT [facility] ([facility]) Albumin Index 3.0 0.0 - 9.0 ratio 07/21/2019 2:14 PM CDT [facility] ([facility]) Synthesis Rate <0.0 <=8.0 mg/d 07/21/2019 2:14 PM CDT [facility] ([facility]) IgG Index 0.66 0.28 - 0.66 ratio 07/21/2019 2:14 PM CDT [facility] ([facility]) IgG/Albumin Ratio CSF 0.15 0.09 - 0.25 ratio 07/21/2019 2:14 PM CDT [facility] ([facility]) Comment: Performed by [facility], [address] [place] [id number] [email or web address], Gareth Phelps MD, Lab. Director Cerebral spinal fluid MISCELLANEOUS SAMPLES / Unknown Collection / Unknown 07/19/2019 12:00 PM CDT 07/19/2019 1:04 PM CDT Hiren Dillon MD LAB - BODY FLUID ORD ERABLES Performing Organization Address [facility] Co de Phone Number [employer] ([facility]) [address] * VARICELLA ZOSTER ANTIBODY IGG CSF (07/19/2019 12:00 PM CDT) Pathologist [facility] Varicella zoster Virus Antibody IgG CSF <10 IV 07/21/2019 2:55 PM CDT [facility] ([facility]) Comment: INTERPRETIVE INFORMATION: VZV Ab, IgG, CSF 134 IV or Less .... Negative: No significant level of IgG antibody to varicella-zoster virus detected. 135 - 165 IV ....... Equivocal: Repeat testing in 10-14 days may be helpful. 166 IV or Greater .. Positive: IgG antibody to varicella-zoster virus detected, which may indicate a current or past varicella-zoster infection. The detection of antibodies to varicella-zoster in CSF may indicate central nervous system infection. However, consideration must be given to possible contamination by blood or transfer of serum antibodies across the blood-brain barrier. Test developed and characteristics determined by [facility]. See Compliance Statement B: [employer]/CS Performed by [facility], [address] [place] [address] [email or web address], Gareth Phelps MD, Lab. Director Cerebral spinal fluid CEREBROSPINAL FLUID SPECIMEN / Unknown Collection / Unknown 07/19/2019 12:00 PM CDT 07/19/2019 1:04 PM CDT Hiren Dillon MD LAB - BODY FLUID ORD ERABLES Performing Organization Address City/[facility]/ZIP Co de Phone Number [facility] ([facility]) [address] * MYELIN BASIC PROTEIN CSF (07/19/2019 12:00 PM CDT) Myelin Basic Protein 3.09 0.00 - 5.50 ng/mL 07/23/2019 7:57 AM CDT [facility] ([facility]) Comment: INTERPRETIVE INFORMATION: Myelin Basic Protein Test developed and characteristics determined by [facility]. See Compliance Statement D: [employer]/ Performed by [facility], [address] [place] [address] [email or web address], Gareth Phelps MD, Lab. Director Cerebral spinal fluid CEREBROSPINAL FLUID SPECIMEN / Unknown Collection / Unknown 07/19/2019 12:00 PM CDT 07/19/2019 1:03 PM CDT Hiren Dillon MD LAB - BODY FLUID ORD ERABLES [facility] ([facility]) [address] [place] [id number] * (ABNORMAL) CELL COUNT W DIFFERENTIAL CSF (07/19/2019 12:00 PM CDT) Character CSF Clear 07/19/2019 1:53 PM CDT AM LAB[facility] Color CSF Colorless 07/19/2019 1:53 PM CDT [facility] WBC CSF 2 0 - 5 x10E6/L 07/19/2019 1:53 PM CDT [facility] RBC CSF 2(H) <=0 x10E6/L 07/19/2019 1:53 PM CDT [facility] Cerebral spinal fluid CEREBROSPINAL FLUID SPECIMEN / Unknown Collection / Unknown 07/19/2019 12:00 PM CDT 07/19/2019 1:04 PM CDT Hiren Dillon MD LAB - BODY FLUID ORD ERABLES [facility] [address] [place], [place] [id number] [place] [address] * PROTEIN CSF (07/19/2019 12:00 PM CDT) Protein CSF 23 15 - 40 mg/dL 07/19/2019 1:59 PM CDT [facility] Cerebral spinal fluid CEREBROSPINAL FLUID SPECIMEN / Unknown Collection / Unknown 07/19/2019 12:00 PM CDT 07/19/2019 1:04 PM CDT Hiren Dillon MD LAB - BODY FLUID ORD ERABLES [facility] [address] * (ABNORMAL) GLUCOSE CSF (07/19/2019 12:00 PM CDT) Glucose CSF 77(HH) >40-<70 mg/dL 07/19/2019 2:06 PM CDT [facility] Cerebral spinal fluid CEREBROSPINAL FLUID SPECIMEN / Unknown Collection / Unknown 07/19/2019 12:00 PM CDT 07/19/2019 1:04 PM CDT Hiren Dillon MD LAB - BODY FLUID ORD ERABLES Performing Organization Address [facility] [[email or web address]] de Phone Number [facility] [address] * PROTEIN ELECTROPHORESIS BLOOD (07/19/2019 12:00 PM CDT) Total Protein 6.5 6.3 - 8.2 g/dL 07/23/2019 3:12 AM CDT [facility] (AM) Albumin 3.86 3.75 - 5.01 g/dL 07/23/2019 3:12 AM CDT [facility] (AM) Alpha-1 Globulin 0.23 0.19 - 0.46 g/dL 07/23/2019 3:12 AM CDT [facility] ([facility]) Sycvc-9-Njwplhdf 0.83 0.48 - 1.05 g/dL 07/23/2019 3:12 AM CDT [facility] (AM) Beta-Globulin 0.74 0.48 - 1.10 g/dL 07/23/2019 3:12 AM CDT [facility] ([facility]) Gamma Globulin 0.83 0.62 - 1.51 g/dL 07/23/2019 3:12 AM CDT [facility] (AM) Interpretation TIM See Note 2018 3:12 AM CDT [facility] ([facility]) Comment: Normal SPEP pattern. Immunofixation electrophoresis (TIM) is a more sensitive technique for the identification of small M-proteins. EER Protein Electrophoresis See Note 07/23/2019 3:12 AM T [facility] ([facility]) Comment: Access [facility] Enhanced Report using either link below: -Direct access: [email or web address] -Enter Username, Password: [email or web address] Username: [email or web address] Password: [email or web address] Performed by [facility], [address] [place] [id number] [email or web address], Gareth Phelps MD, Lab. Director Blood BLOOD SPECIMEN / Unknown Venipuncture / Unknown 07/19/2019 12:00 PM CDT 07/19/2019 1:08 PM CDT Hiren Dillon MD LAB - CHEMISTRY MESHA AKHTAR [facility] ([facility]) [address] [place] [address], [facility] * (ABNORMAL) PROTEIN ELECTROPHORESIS CSF PANEL (07/19/2019 12:00 PM CDT) Protein CSF 14.9(L) 15.0 - 45.0 mg/dL 07/22/2019 8:46 AM T [facility] ([facility]) Prealbumin CSF 1.4 0.0 - 3.1 mg/dL 07/22/2019 8:46 AM T [facility] ([facility]) Albumin CSF 9.5 8.4 - 34.2 mg/dL 07/22/2019 8:46 AM CDT [facility] ([facility]) Alpha-1 Globulin CSF 0.5 0.0 - 3.1 mg/dL 07/22/2019 8:46 AM T [facility] ([facility]) Mkcon-0-Ohlanmd n CSF 1.0 0.0 - 5.4 mg/dL 07/22/2019 8:46 AM CDT [facility] ([facility]) Beta-Globulin CSF 1.8 0.0 - 8.1 mg/dL 07/22/2019 8:46 AM CDT [facility] ([facility]) Gamma Globulin CSF 0.7 0.0 - 5.4 mg/dL 07/22/2019 8:46 AM CDT [facility] ([facility]) Comment: Performed by [facility], [address] [place] [address] [email or web address], Gareth Phelps MD, Lab. Director Cerebral spinal fluid CEREBROSPINAL FLUID SPECIMEN / Unknown Collection / Unknown 07/19/2019 12:00 PM CDT 07/19/2019 1:03 PM CDT Hiren Dillon MD LAB - BODY FLUID ORD ERABLES Performing Organization Address [facility] Co de Phone Number [facility] ([facility]) [address] [place] [address] * IGG CSF (07/19/2019 12:00 PM CDT) IgG CSF 1.3 0.0 - 6.0 mg/dL 07/21/2019 2:14 PM CDT [facility] ([facility]) Comment: Performed by [facility], [address] [place] [address] [email or web address], Gareth Phelps MD, Lab. Director Cerebral spinal fluid CEREBROSPINAL FLUID SPECIMEN / Unknown Collection / Unknown 07/19/2019 12:00 PM CDT 07/19/2019 1:03 PM CDT Hiren Dillon MD LAB - BODY FLUID ORD ERABLES [facility] ([facility]) [address] * IGG BLOOD (07/19/2019 12:00 PM CDT) IgG 793 768 - 1632 mg/dL 07/21/2019 12:51 PM CDT [facility] ([facility]) Comment: REFERENCE INTERVAL: Immunoglobulin G Access complete set of age- and/or gender-specific reference intervals for this test in the [employer] [facility] Test Directory ([facility]). Performed by [facility], [address] [place] [address] [email or web address], Gareth Phelps MD, Lab. Director Blood BLOOD SPECIMEN / Unknown Venipuncture / Unknown 07/19/2019 12:00 PM CDT 07/19/2019 1:08 PM CDT Hiren Dillon MD LAB - CHEMISTRY MESHA AKHTAR [facility] ([facility]) [address] [place] [address], [facility] * MRI BRAIN W WO CONTRAST [id number] (07/12/2019 8:07 PM CDT) Anatomical Region Laterality Modality Head Magnetic Resonan ce 07/12/2019 8:21 PM CDT Impressions 07/12/2019 8:34 PM CDT 1. Scattered T2-weighted hyperintense white matter lesions suspicious for demyelinating process such as multiple sclerosis. Mild restricted diffusion involving the optic nerves is not excluded. Consider dedicated orbital MRI as clinically appropriate. 2. Subtle involvement involving the brainstem as well not excluded either. Narrative 07/12/2019 8:34 PM CDT PROCEDURE: MRI BRAIN WWO CONTRAST 07/12/2019 8:21 PM HISTORY: Unspecified visual loss. TECHNIQUE: Multiplanar MRI performed brain Contrast: 20 mL MultiHance Comparison: None FINDINGS: Scattered nonenhancing T2-weighted hyperintense white matter foci present in the periventricular, pericallosal and callosal regions. No restricted diffusion or abnormal enhancement is seen in associated with these lesions. No restricted diffusion within the intracranial contents; the optic nerves appear somewhat prominent but not clearly abnormal on DWI images. See also image 11 of series 7. Brainstem and cerebellum appear within normal as. No mass, mass effect or hemorrhage. Orbital periorbital paranasal calvarial structures otherwise unremarkable. On sagittal FLAIR images, a tiny focus of hyperintense T2-weighted changes on image 11 of series 4 may represent anterior medullary involvement in the brainstem. Procedure Note Eugenio Adames MD - 07/12/2019 PROCEDURE: MRI BRAIN WWO CONTRAST 07/12/2019 8:21 PM HISTORY: Unspecified visual loss. TECHNIQUE: Multiplanar MRI performed brain Contrast: 20 mL MultiHance Comparison: None FINDINGS: Scattered nonenhancing T2-weighted hyperintense white matter foci present in the periventricular, pericallosal and callosal regions. No restricted diffusion or abnormal enhancement is seen in associated with these lesions. No restricted diffusion within the intracranial contents; the optic nerves appear somewhat prominent but not clearly abnormal on DWI images. See also image 11 of series 7. Brainstem and cerebellum appear within normal as. No mass, mass effect or hemorrhage. Orbital periorbital paranasal calvarial structures otherwise unremarkable. On sagittal FLAIR images, a tiny focus of hyperintense T2-weighted changes on image 11 of series 4 may represent anterior medullary involvement in the brainstem. IMPRESSION 1. Scattered T2-weighted hyperintense white matter lesions suspicious for demyelinating process such as multiple sclerosis. Mild restricted diffusion involving the optic nerves is not excluded. Consider dedicated orbital MRI as clinically appropriate. 2. Subtle involvement involving the brainstem as well not excluded either. Hiren Dillon MD MR ORDERABLES * PATHOLOGY TISSUE FOR DERMATOLOGY (11/12/2011 12:00 AM RAILWAY SIGNAL TECHNICIAN) Only the most recent of2 resultswithin the time period is included. Result THIS IS AN ADDENDUM REPORT CASE: [id number] PATIENT: KALIA CESAR THIS REPORT HAS BEEN ADDENDED Reason for Addendum #1: Ancillary Studies PATHOLOGIC DIAGNOSIS: Left upper lip: VERRUCA VULGARIS, SUPERFICIAL PORTIONS OF CLINICAL DATA: Wart. GROSS DESCRIPTION: Received is one formalin filled container labeled with the patient's name and designated left upper lip. The specimen consists of a shave biopsy measuring 2x2x1 mm. Jar 0. MICROSCOPIC DESCRIPTION: Sections show papillomatosis and hypergranulosis with overlying focal parakeratosis. The base of the lesion is not visualized. Final Diagnosis performed by Sandee Ferrell M.D. Electronically signed 11/24/2011 1:02:42PM ADDENDUM: Integrated ONCOLOTY Surgical Pathology Report AARON Analysis Order #[id number] Specimen#[id number] -[id number] Case#[id number] HPV Wide Screen Spectrum Negative A copy of the report will be faxed separately. Addendum #1 performed by Sandee Ferrell M.D. Electronically signed 01/07/2012 4:27:06PM [facility] Comment: Performed at: Dermatopathology Laboratory [facility] Department of Dermatology [address] [facility] [place] [address] Phone number: [phone] Toll Free: [phone] FAX: [phone] 11/12/2011 11/23/2011 Lyndon Mccoy LAB - PATHOLOGY/CYTO LOGY ORDERABLES [facility] [address] [facility] 5th Floor Lab [address] [phone] Care Teams Music Publisher Relationship Specialty Start Date End Date Nano Klein PA-C [address] [place] [id number] PCP - Attributed-[employer] [place] 08/01/20
--- OUTSIDE RECORDS SUMMARY | 2024-12-25 18:33 | XMS_ITS | Clinical Summary ---
Author Organization [facility] System Address [address] [place] [address] Care Team Providers Care Immunologist Name Role Phone GinaRuiz self Primary Care Provider [phone] Allergies No known active allergies Medications amphetamine-dextroa mphetamine XR 10 MG 24 hr capsule Take 20 mg by mouth every morning. Active pregabalin (LYRICA) 75 MG capsule Take 75 mg by mouth 2 (two) times daily. Active lansoprazole (PREVACID) 15 MG capsule Take 15 mg by mouth 2 (two) times daily. Active albuterol sulfate HFA 108 (90 Base) MCG/ACT inhaler Inhale 2 puffs into the lungs every 6 (six) hours as needed for Wheezing. 8 g 3 Active ondansetron (ZOFRAN-ODT) 4 MG disintegrating tablet Take 1 tablet (4 mg total) by mouth every 8 (eight) hours as needed for Nausea. 20 tablet 3 Active Active Problems Problem Noted Date Diagnosed Date Generalized anxiety disorder 08/31/2022 Multiple sclerosis ([facility]) 08/27/2022 Social History Tobacco Use Types Packs/Day Years Used Date Smoking Tobacco: Every Day Smokeless Tobacco: Never Alcohol Use Standard Drinks/Week Comments Never 0 (1 standard drink = 0.6 oz pur e alcohol) AUDIT-C Answer Date Recorded Q1: How often do you have a drink containing alc ohol? Never 01/30/2021 Average Number of Drinks Not on file 021 Frequency of Binge Drinking Not on file 11/2020 Sex and Gender Information Value Date Recorded Sex Assigned at Not on file Legal Sex Male 7:29 PM CDT Gender Identity Not on file Sexual Orientation Not on file Last Filed Vital Signs Vital Sign Reading Time Taken Comments Blood Pressure 152/95 09/05/2023 7:35 AM [employer] Pulse 58 09/05/2023 7:35 AM [employer] Temperature 36.1 C (97 F) 09/05/2023 5:35 AM [employer] Respiratory Rate 17 09/05/2023 7:35 AM [employer] Oxygen Saturation 99% 09/05/2023 7:35 AM [employer] C[employer] Inhaled Oxygen Concentration - - Weight 117.9 kg (260 lb) 09/05/2023 5:35 AM [employer] C[employer] Height 182.9 cm (6') 09/05/2023 5:35 AM [employer] Body Mass Index 35.26 09/05/2023 5:35 AM [employer] Plan of Treatment Health Maintenance Due Date Last Done Comments Annual Physical 1991 Pneumococcal Vaccine: Pediat rics (0 to 5 Years) and At-Risk Patients (6 to 64 Years) (1 of 2 - PCV) 1994 PHQ-2 ([facility]) 2000 DTaP, Tdap and Td Vaccines ( 1 - Tdap) 2007 Hepatitis B Vaccines (1 of 3 - 19+ 3-dose series) 2007 COVID-19 Vaccine (2023-2 5 season) 2024 Influenza Adult (#1) 2024 PHQ-2 ([facility]) 11/01/2024 Hepatitis C Completed 08/03/2022 HPV Vaccines Aged Out No longer eligi ble based on patient's age to complete this topic Meningococcal B Vaccine Aged Out No l onger eligible based on patient's age to complete this topic Meningococcal Vaccine Aged Out No naif bernarda eligible based on patient's age to complete this topic RSV Immunizations Under 20 Months Aged Out No longer eligible based on patient's age to complete this topic Procedures Procedure Name Priority Date/Time Associated Diagnosis Comments HEPATITIS C ANTIBODY Routine 08/03/2022 10:33 AM CDT Multiple sclerosis (CMS/HCC HHS/HCC) from Last 3 Months or Most Recently Relevant to Health Maintenance Results * HEPATITIS C ANTIBODY (08/03/2022 10:33 AM CDT) HEPATITIS C AB NON-REACTI VE NON-REACT BRAN 08/05/2022 11:56 AM CDT [facility] Comment: ANTIBODIES TO HCV NOT DETECTED. DOES NOT EXCLUDE THE POSSIBILITY OF EXPOSURE TO HCV. 08/03/2022 10:3 3 AM CDT Mayra Fink DO LABORATORY Final Result [facility] [address] [place] [address], [place] [phone] [id number] from Last 3 Months or Most Recently Relevant to Health Maintenance Insurance [facility] Care Teams Immunologist Relationship Specialty Start Date End Date Ruiz Camarillo DO [address] [place] [address] PCP - General FAMILY PRACTICE 08/13/22
== END 2024-12-25 18:10 | disposition home or self-care (01) ==
PROVIDERS: Emergency Provider Emergency Medicine
DX: R51.9 Headache, unspecified (principal); G35 Multiple sclerosis; Z87.891 Personal history of nicotine dependence
CPT/HCPCS: 70450; 96361; 96374; 96375; 99284; A9270; J1200; J1885; J2765; J7030

== ENCOUNTER 2025-01-01 04:40 | Emergency (ER) | payer BC, SELFPAY ==
[2025-01-01] VITALS (23 sets, daily range): BP systolic 127–164; BP diastolic 67–90; PULSE 48–62; RESP 11–23; TEMP 36.7; O2SAT 92–97
--- NOTE | 2025-01-01 04:58 | ED.ABDPAIN ---
HPI - Abdominal Pain General Chief Complaint: Urogenital-Male Stated Complaint: urogenital male Time Seen by Provider: 01/01/25 04:45 Source: patient and family Mode of arrival: ambulatory Limitations: no limitations History of Present Illness HPI narrative: Patient is a 34-year-old male with right-sided abdominal pain secondary to possibly kidney stones at this time with his past history. Patient has known recurrent kidney stones that passed with time and no prior procedures. Nausea and vomiting. patient has been urinating blood throughout the week. Pain started last evening. patient has a history of MS. elicited complaint: abdominal pain ( Right lower quadrant) Pertinent past history: kidney stones Onset (ago): day(s) ( 1) Pain Consistency: constant Location: RLQ Severity: moderate Pain scale (0-10): 8 Quality: sharp Radiation: none Migration to: no migration Exacerbating factors: nothing Relieving factors: nothing Context: confirms history of similar episodes ( Kidney stones) Associated symptoms: nausea, vomiting and hematuria Treatments prior to arrival: NSAIDs Related Data Allergies Allergy/AdvReac Type Severity Reaction Status Date / Time No Known Allergies Allergy Verified 01/01/25 04:58 Review of Systems Review of Systems: All systems reviewed & are unremarkable except as noted in HPI and below Constitutional: Constitutional: Reports no additional constitutional complaints Eyes: Eyes: Reports no additional eye complaints ENT: Reports system reviewed and no additional complaints, except as documented Cardiovascular: Cardiovascular: Reports no additional cardiovascular complaints Respiratory: Respiratory: Reports no additional respiratory complaints Gastrointestinal: Gastrointestinal: Reports no additional gastrointestinal complaints Genitourinary: Genitourinary: Reports no additional male genitourinary complaints Musculoskeletal: Musculoskeletal: Reports no additional musculoskeletal complaints Integumentary/Breasts: Skin/Breast: Reports system reviewed and no additional complaints, except as docu Neurologic: Reports system reviewed and no additional complaints, except as documented Psychiatric: Psychiatric: Reports no additional psychiatric complaints Endocrine: Endocrine: Reports no additional endocrine complaints Hematologic/Lymphatic: Hematologic/Lymphatic: Reports no additional hematologic/lymphatic complaints Allergic/Immunologic: Allergic/Immunologic: Reports no additional allergic/immunologic complaints [facility] Past Medical History Medical History Toothache Trigeminal neuralgia Multiple sclerosis Surgical History Surgical History History of inguinal hernia repair Family History Family History Mother Family history non-contributory Social History Social History Smoking packs per day: 1 Smoking cigarettes per day: 20.0 Years smoked: 15 Smoking pack-years: 15.00 Smoking status: Former smoker Tobacco type: cigarettes Substance use: never Living arrangements: with family Gender identity (if verbalized by the patient): Male Spiritual care concerns: No Exam Const: General: ill appearing Nutritional Appearance: well nourished Orientation/consciousness: patient oriented x3 Limitations: no limitations HENMT: Head: normal to inspection Ears: external ears normal Face/Nose/Sinus: Normal external nose present Eyes: Conjunctivae: conjunctivae normal Pupils: Equal, round and reactive pupils present EOM: EOMs intact bilaterally Neck: Neck: normal visual inspection Chest: Chest palpation & inspection: normal inspection of the chest Resp: Effort & Inspection: normal respiratory effort and not labored Auscultation: clear to auscultation bilaterally and no crackles Cardio: Rate: regular rate Rhythm: regular rhythm Heart sounds: no murmurs GI: Inspection: non-distended GI Palp: Yes Soft to palpation, Yes Tenderness to palpation present (GI) ( right lower quadrant), No Guarding due to palpation present (GI), No Rigid due to palpation, No Hernia present, No Palpable mass present and No Rebound tenderness present Auscultation: normal bowel sounds : General: Yes bladder normal to palpation Back/Spine/Pelvis: Back: no CVA tenderness Skin: General skin exam: normal color Rashes: no rashes Wounds: no wounds Neuro: General: patient oriented x3 Cranial nerves: Yes Nystagmus not present Speech: normal speech Extrem: General: normal to inspection Psych: Mental Status: mental status grossly normal Affect: normal affect Attitude: cooperative Course Vital Signs Vital signs: Vital Signs Temperature 36.7 C 01/01/25 04:42 Pulse Rate 54 L 01/01/25 04:42 Respiratory Rate 18 01/01/25 04:42 Blood Pressure 164/88 H 01/01/25 04:42 Pulse Oximetry 97 01/01/25 04:42 Oxygen Delivery Room Air 01/01/25 04:42 Temperature 36.7 C 01/01/25 04:42 Pulse Rate 57 L 01/01/25 06:00 Respiratory Rate 11 L 01/01/25 05:31 Blood Pressure 127/78 01/01/25 06:01 Pulse Oximetry 95 01/01/25 06:01 Oxygen Delivery Room Air 01/01/25 04:42 MDM - Abdominal Pain MDM Narrative Medical decision making narrative: patient is a 34-year-old male with right lower quadrant abdominal pain for the past day. We will do a renal stone workup at this time. review of the CT scan overnight was slightly over zealous with calling stone 7 mm and pyelonephritis as our in-house radiologist reread the CT scan at 5 mm and no pyelonephritis; we will send patient home with follow-up with Urology; I will give patient information for local urologist Lab Data Attestation: I reviewed the patient's lab results. 01/01/25 04:50 01/01/25 04:50 Labs: Lab Results 01/01/25 01/01/25 Range/Units 04:50 05:41 WBC 14.5 H (4.8-10.8) K/mm3 RBC 5.11 (4.70-6.10) M/mm3 Hgb 15.5 (14.0-18.0) g/dL Hct 45.7 (40.0-54.0) % MCV 89.4 (78.0-102.0) fL MCH 30.3 (27.0-31.0) pg MCHC 33.9 (32-36) g/dL RDW 13.3 (11.6-14.4) % Plt Count 274 (150-420) K/mm3 MPV 11.3 H (8.7-11.0) fl Immature Gran % (Auto) 0.2 H (0.0-0.0) % Neut % (Auto) 68.4 (50.0-70.0) % Lymph % (Auto) 18.5 (18.0-42.0) % Guthrie % (Auto) 10.3 (2.0-11.0) % Eos % (Auto) 2.1 (1.0-6.0) % Baso % (Auto) 0.5 (0.0-1.0) % Lymph # (Auto) 2.68 (1.10-4.50) K/mm3 Guthrie # (Auto) 1.49 H (0.10-0.90) K/mm3 Eos # (Auto) 0.31 (0.02-0.50) K/mm3 Baso # (Auto) 0.07 (0.00-0.10) K/mm3 Abs Immat Gran (auto) 0.03 H (0.00-0.00) K/mm3 Absolute Neuts (auto) 9.88 H (1.70-7.20) K/mm3 Absolute Nucleated RBC 0.00 (0.00-0.00) K/mm3 Nucleated RBC % 0.0 (0-0.0) % Sodium 142 (136-145) mmol/L Potassium 4.4 (3.5-5.1) mmol/L Chloride 103 (98-108) mmol/L Carbon Dioxide 26 (21-32) mmol/L Anion Gap 13 H (4-12) mmol/L BUN 19 H (7-18) mg/dL Creatinine 1.28 (0.70-1.30) mg/dL Estim Creat Clear Calc 98 ml/min Estimated GFR > 60 (59 - ) Glucose 117 H (70-99) mg/dL Calculated Osmolality 297 H (285-295) mOsm/kg Calcium 9.2 (8.5-10.1) mg/dL Total Bilirubin 0.7 (0.00-1.00) mg/dL AST 31 (15-37) U/L ALT 85 H (16-63) U/L Alkaline Phosphatase 105 (46-116) U/L Total Protein 7.1 (6.4-8.2) g/dL Albumin 3.9 (3.4-5.0) g/dL Lipase 34 (16-77) U/L Urine Color Light yellow (Yellow) Urine Appearance Cloudy A (Clear) Urine pH 6.0 (5.0-8.0) Ur Specific Laton 1.020 (1.010-1.020) Urine Protein Negative (Negative) Urine Glucose (UA) Negative (Negative) Urine Ketones Negative (Negative) Ur Blood (Man) 3+ H (Negative) Urine Nitrate Negative (Negative) Urine Bilirubin Negative (Negative) Urine Urobilinogen 0.2 (0.2-1.0) mg/dL Leukocyte Esterase Rfl Negative (Negative) AARON/UL Urine RBC >75 H (0-2) /hpf Urine WBC None seen (0-3) /hpf Ur Squamous Epith Cells Rare (Few) /hpf Urine Bacteria Trace (None) /hpf Imaging Data Attestation: I personally reviewed and interpreted this imaging study as follows: Radiologist's impression: ITS Impressions Abdomen/Pelvis CT 01/01/25 06:50 Impression: 5 mm proximal right ureteral stone with mild right hydroureteronephrosis to this level. Additional bilateral nonobstructing stones, as above. CT scan of the abdomen and pelvis without contrast shows an obstructive 7 mm calculus in the proximal ureter on the right with perinephric and periureteral stranding; normal appendix (overnight reading); see above report for reread by in-house physician Discharge Plan Discharge Clinical Impression: Calculus, ureteral Patient Disposition: Home, Self-Care Condition: Stable Instructions: Antibiotic Form, Ureteral Stones (ED) Additional Instructions: please follow-up with the primary doctor in the next week. Please follow-up with the urologist in the next week by calling [phone] and making an appointment for follow-up in the next week. Patient Language: Hebrew Prescriptions: New tamsulosin [Flomax] 0.4 mg capsule 0.4 mg PO DAILY Qty: 30 0RF hydrocodone-acetaminophen 5-325 mg tablet 1 tablet PO Q8H PRN (Reason: pain) Qty: 20 0RF Rx Instructions: 1-2 tabs per dose methylprednisolone [Medrol] 4 mg tablet 4 mg PO BID 3 Days Qty: 6 0RF levofloxacin 500 mg tablet 500 mg PO DAILY Qty: 7 0RF Follow-up/Referrals: UNKNOWN,DOCTOR [Primary Care Provider] - Time of Disposition: 07:18
[2025-01-01] MEDS: KETOROLAC 30 MG/ML VIAL (*BKC) IV PUSH (05:02)
[2025-01-01] MEDS: ONDANSETRON INJ 4 MG/2 ML VIAL IV PUSH (05:02)
[2025-01-01] MEDS: SODIUM CHLORIDE 0.9% IV 1,000 ML 999 ML IV CONT (05:04)
[2025-01-01 05:12] LABS: Basophils Absolute Auto 0.07 K/mm3 (0.00-0.10); Basophils Percent Auto 0.5 % (0.0-1.0); Eosinophils Absolute Auto 0.31 K/mm3 (0.02-0.50); Eosinophils Percent Auto 2.1 % (1.0-6.0); Hematocrit 45.7 % (40.0-54.0); Hemoglobin 15.5 g/dL (14.0-18.0); Immature Granulocyte Absolute 0.03 K/mm3 (0.00-0.00); Immature Granulocyte Percent A 0.2 % (0.0-0.0); Lymphocytes Absolute Auto 2.68 K/mm3 (1.10-4.50); Lymphocytes Percent Auto 18.5 % (18.0-42.0); Mean Corpuscular HGB Conc 33.9 g/dL (32-36); Mean Corpuscular Hemoglobin 30.3 pg (27.0-31.0); Mean Corpuscular Volume 89.4 fL (78.0-102.0); Mean Platelet Volume 11.3 fl (8.7-11.0); Monocytes Absolute Auto 1.49 K/mm3 (0.10-0.90); Monocytes Percent Auto 10.3 % (2.0-11.0); Neutrophils Absolute Auto 9.88 K/mm3 (1.70-7.20); Neutrophils Percent Auto 68.4 % (50.0-70.0); Platelet Count Result 274 K/mm3 (150-420); Red Blood Count 5.11 M/mm3 (4.70-6.10); Red Cell Distribution Width 13.3 % (11.6-14.4); White Blood Count 14.5 K/mm3 (4.8-10.8)
[2025-01-01 05:17] LABS: Lipase 34 U/L (16-77)
[2025-01-01 05:24] LABS: Alanine Aminotransferase 85 U/L (16-63); Albumin Level 3.9 g/dL (3.4-5.0); Alkaline Phosphatase 105 U/L (46-116); Anion Gap 13 mmol/L (4-12); Aspartate Amino Transferase 31 U/L (15-37); Bilirubin,Total 0.7 mg/dL (0.00-1.00); Blood Urea Nitrogen 19 mg/dL (7-18); Calcium 9.2 mg/dL (8.5-10.1); Carbon Dioxide 26 mmol/L (21-32); Chloride 103 mmol/L (98-108); Estimated CRCL calculation 98 ml/min; Estimated Glomerular Filt Rate > 60; Glucose 117 mg/dL (70-99); Osmolality Calculated 297 mOsm/kg (285-295); Potassium 4.4 mmol/L (3.5-5.1); Sodium 142 mmol/L (136-145); Total Protein 7.1 g/dL (6.4-8.2)
[2025-01-01 05:48] LABS: Add Urine Microscopic? YES; Appearance Urine Cloudy (Clear); Bilirubin Urine Negative (Negative); Blood Urine 3+ (Negative); Color Urine Light Yellow (Yellow); Glucose Urine UA Negative (Negative); Ketones Urine Negative (Negative); Leukocyte Esterase Ur Negative LEU/UL (Negative); Nitrate Urine Negative (Negative); Protein Urine Negative (Negative); Urobilinogen Urine 0.2 mg/dL (0.2-1.0)
[2025-01-01 05:50] LABS: Bacteria Urine Trace /hpf; RBC Urine >75 /hpf (0-2); Squamous Epithelial Cell Urine Rare /hpf (Few); WBC Urine None seen /hpf (0-3)
[2025-01-01] MEDS: HYDROmorphone HCL INJ (*CRX) 2 MG/ML VIAL 0.5 MG IV PUSH (06:50)
[2025-01-01] MEDS: TAMSULOSIN HCL 0.4 MG CAPSULE PO (06:50)
== END 2025-01-01 07:38 | disposition home or self-care (01) ==
PROVIDERS: Emergency Provider Emergency Medicine
DX: N20.1 Calculus of ureter (principal); Z87.891 Personal history of nicotine dependence
CPT/HCPCS: 36415; 74176; 80053; 81001; 83690; 85025; 87040; 96361; 96365; 96375; 99284; A9270; J0696; J1171; J1885; J2405; J7030

== ENCOUNTER 2025-03-04 15:32 | Emergency (ER) | payer BC, SELFPAY ==
--- NOTE | ~2025-03-04 | XR_ITS ---
EXAM: XR hand LT min 3V DATE: 03/04/2025 15:49 HISTORY: Injury, crushed Lt. hand on wood. Pain in 2nd phalange MC . COMPARISON: None available. FINDINGS: Normal mineralization. No fracture or dislocation. No lytic or blastic lesion. Joint space s are maintained. No erosion or periosteal change. Soft tissues within normal limits. IMPRESSION: No acute osseous finding in the left hand. Reviewed, dictated and finalized at location K.
[2025-03-04 15:33] VITALS: BP 153/85; PULSE 58; RESP 18; TEMP 36.1; O2SAT 98
--- OUTSIDE RECORDS SUMMARY | 2025-03-04 15:34 | XMS_ITS | Clinical Summary ---
Author Organization [facility] [employer] Address [address] [place] [address] Care Team Providers Care Payroll Lead Name Role Phone Nano Klein PA-C Unavailable Source Comments [facility] [employer],non-owned Affiliates and Associated Physician Practices is amultiple site organization consisting of ambulatory clinics and hospital sitesin [place], [place], [place] and [place]. This disclosure is being madepursuant to the Care Everywhere program and may not contain all information available regarding this patient. Last updated 18.mktg [employer] Allergies No known active allergies Medications * This document contains information received from the source organization and may not represent a complete record from that organization. * Be aware that medications may not be up to date on this document. Alwaysverify current medications with the patient. albuterol HFA (PROVENTIL;JOY KATHI;PROAIR) 108 (90 Base) MCG/ACT inhalerIndicatio ns:Asthma Inhale 2 puffs by mouth every 6 hours as needed 02/15/2020 Active carBAMazepine (TEGRETOL) 200 MG tabletIndication s:Trigeminal Neuralgia Take 400 mg by mouth 3 times daily Active ondansetron (ZOFRAN) 4 MG tabletIndication s:Nausea and Vomiting Take 4 mg by mouth every 8 hours as needed for Nausea/Vomi ting Active baclofen (LIORESAL) 20 MG tabletIndication s:Muscle Spasm Take 20 mg by mouth 4 times daily May cause drowsiness. Active Active Problems Problem Noted Date Diagnosed Date Moderate episode of recurrent major depressive d isorder 04/15/2021 Trigeminal neuralgia of left side of face 06/15/ 2021 Homelessness 04/15/2021 Suicidal ideation 04/15/2021 Post-dural puncture [...] Assigned at Male 04/15/2021 5:46 PM CDT Legal Sex Male 10:00 AM CDT Gender Identity Male 05/23/2020 12:48 PM [...] - 19+ 3-dose series) 2007 COVID-19 VACCINE ( - 2023-2 5 season) 2024 DEPRESSION SCREENING 11/01/2024 INFLUENZA VACCINE (Season Ended) 2025 ZOSTER VACCINE (1 of 2) 2038 HIB VACCINE Aged Out No longer eligi ble based on patient's age to complete this topic HPV VACCINE Aged Out No longer eligi ble based on patient's age to complete this topic MENINGOCOCCAL (Group B) VACC INE SHARED DECISION-MAKING Aged Out No longer eligibl e based on patient's age to complete this topic MENINGOCOCCAL GROUPS A/C/Y/W VACCINE Aged Out No longer eligible b ased on patient's age to complete this topic PNEUMOCOCCAL VACCINE Aged Out No long er eligible based on patient's age to complete this topic Insurance Advance Directives Documents on File Type Date Recorded Patient Sap Basis Consultant Expl anation Adv Directive/Living Will/POA 03/15/2017 * Full Code (Latest Code Status on File) Date Activated Date Inactivated Comments 04/15/2021 5:39 PM 04/20/2021 6:32 PM * Full Code Date Activated Date Inactivated Comments 07/21/2019 10:50 PM 07/22/2019 7:23 PM Care Teams Payroll Lead Relationship Specialty Start Date End Date Nano Klein, MICHELLE [address] [place] [id number] PCP - Attributed-BCBS Medicaid [place] 08/01/20
--- OUTSIDE RECORDS SUMMARY | 2025-03-04 15:34 | XMS_ITS | Clinical Summary ---
Author Organization [facility] Address [address] [place] [address] Care Team Providers Care Code Enforcement Supervisor Name Role Phone GinaRuiz self Primary Care Provider [phone] Allergies No known active allergies Medications amphetamine-dextroa [...] Date Generalized anxiety disorder 08/31/2022 Multiple sclerosis ([facility]) 08/27/2022 Social History Tobacco Use Types Packs/Day [...] Comments Blood Pressure 152/95 09/05/2023 7:35 AM [employer] Pulse 58 09/05/2023 7:35 AM [employer] Temperature 36.1 C (97 F) 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 Respiratory Rate 17 09/05/2023 7:35 AM [employer]IVER Oxygen Saturation 99% 09/05/2023 7:35 AM [employer] Inhaled Oxygen Concentration - - Weight 117.9 kg (260 lb) 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 Height 182.9 cm (6') 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 Body Mass Index 35.26 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 Plan of Treatment Health Maintenance Due Date Last Done Comments Annual Physical 1991 DTaP, Tdap and Td Vaccines ( 1 - Tdap) 2007 Hepatitis B Vaccines (1 of 3 - 19+ 3-dose series) 2007 Pneumococcal Vaccine: Pediat rics (0 to 5 Years) and At-Risk Patients (6 to 49 Years) (1 of 2 - PCV) 2007 COVID-19 Vaccine ( - 2023-2 5 season) 2024 PHQ-2 (Physician [place]) 11/01/2024 Hepatitis C Completed 08/03/2022 HPV Vaccines [...] Routine 08/03/2022 10:33 AM CDT Multiple sclerosis from Last 3 Months or Most Recently Relevant to Health Maintenance Results * HEPATITIS C ANTIBODY (08/03/2022 10:33 AM CDT) HEPATITIS C AB NON-REACTI VE NON-REACT BRAN 08/05/2022 11:56 AM CDT [facility] Comment: ANTIBODIES TO HCV NOT DETECTED. DOES NOT EXCLUDE THE POSSIBILITY OF EXPOSURE TO HCV. 08/03/2022 10:3 3 AM CDT Myara Fink DO LABORATORY Final Result [facility] [address] [place] [address], [id number] from Last 3 Months or Most Recently Relevant to Health Maintenance Insurance [facility] Care Teams Code Enforcement Supervisor Relationship Specialty Start Date End Date Ruiz Camarillo DO [address] [place] [address] PCP - General FAMILY PRACTICE 08/13/22
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
--- NOTE | 2025-03-04 15:38 | ED_ITS ---
HPI - Extremity Injury (Upper) General Chief Complaint: Extremity Injury, Upper Stated Complaint: wrist injury Time Seen by Provider: 03/04/25 15:38 Source: patient Mode of arrival: ambulatory Limitations: no limitations History of Present Illness HPI narrative: Patient is a 34-year-old male with a left hand crush injury prior to arrival. He had a 4 x 4 piece of wood from overhead land onto his left hand crush near the thumb region. MD complaint: injury to: left and hand Onset (ago): hour(s) ( One) Other Extremity Injury: Left: hand Other injuries: none Place: work Severity: moderate Severity scale (1-10): 5 Relieving factors: immobilization Exacerbating factors: movement of extremity Context: direct blow Associated symptoms: weakness ( left hand) and numbness ( left hand) Treatments prior to arrival: cold therapy Related Data Allergies Allergy/AdvReac Type Severity Reaction Status Date / Time No Known Allergies Allergy Verified 03/04/25 15:41 Review of Systems Review of Systems: All systems reviewed & are unremarkable except as noted in HPI and below Constitutional: Constitutional: Reports no additional constitutional complaints Eyes: Eyes: Reports no additional eye complaints ENT: Reports system reviewed and no additional complaints, except as documented Cardiovascular: Cardiovascular: Reports no additional cardiovascular complaints Respiratory: Respiratory: Reports no additional respiratory complaints Gastrointestinal: Gastrointestinal: Reports no additional gastrointestinal complaints Genitourinary: Genitourinary: Reports no additional male genitourinary complaints Musculoskeletal: Musculoskeletal: Reports no additional musculoskeletal complaints Integumentary/Breasts: Skin/Breast: Reports system reviewed and no additional complaints, except as docu Neurologic: Reports system reviewed and no additional complaints, except as documented Psychiatric: Psychiatric: Reports no additional psychiatric complaints Endocrine: Endocrine: Reports no additional endocrine complaints Hematologic/Lymphatic: Hematologic/Lymphatic: Reports no additional hematologic/lymphatic complaints Allergic/Immunologic: Allergic/Immunologic: Reports no additional allergic/immunologic complaints COUNTS INCLUDE 234 BEDS AT THE [facility] Past Medical History Medical History Toothache Trigeminal neuralgia Multiple sclerosis Surgical History Surgical History History of inguinal hernia repair Family History Family History Mother Family history non-contributory Social History Social History Smoking packs per day: 1 Smoking cigarettes per day: 20.0 Years smoked: 15 Smoking pack-years: 15.00 Smoking status: Former smoker Tobacco type: cigarettes Substance use: never Living arrangements: with family Gender identity (if verbalized by the patient): Male Spiritual care concerns: No Exam Const: General: healthy appearing Nutritional Appearance: well nourished Orientation/consciousness: patient oriented x3 HENMT: Head: normal to inspection Ears: external ears normal Face/Nose/ Sinus: Normal external nose present Eyes: Conjunctivae: conjunctivae normal Pupils: Equal, round and reactive pupils present EOM: EOMs intact bilaterally Neck: Neck: normal visual inspection Chest: Chest palpation & inspection: normal inspection of the chest Resp: Effort & Inspection: normal respiratory effort and not labored Auscultation: clear to auscultation bilaterally and no crackles Cardio: Rate: regular rate Rhythm: regular rhythm Heart sounds: no murmurs GI: Inspection: non-distended GI Palp: Yes Soft to palpation and No Tenderness to palpation present (GI) Auscultation: normal bowel sounds : General: Yes bladder normal to palpation Back/Spine/Pelvis: Back: no CVA tenderness Skin: General skin exam: normal color Rashes: no rashes Wounds: no wounds Neuro: General: patient oriented x3 Cranial nerves: Yes Nystagmus not present Speech: normal speech Extrem: General: abnormal to inspection Other: left hand extensor surface between the thumb and 1st digit has a contusion appearance with slight ecchymosis and erythema area from the crush injury; patient having difficulty moving the thumb and the finger pointer at this time due to pain Psych: Mental Status: mental status grossly normal Affect: normal affect Attitude: cooperative Course Vital Signs Vital signs: Vital Signs Temperature 36.1 C L 03/04/25 15:33 Pulse Rate 58 L 03/04/25 15:33 Respiratory Rate 18 03/04/25 15:33 Blood Pressure 153/85 H 03/04/25 15:33 Pulse Oximetry 98 03/04/25 15:33 Oxygen Delivery Room Air 03/04/25 15:33 Temperature 36.1 C L 03/04/25 15:33 Pulse Rate 58 L 03/04/25 15:33 Respiratory Rate 18 03/04/25 15:33 Blood Pressure 153/85 H 03/04/25 15:33 Pulse Oximetry 98 03/04/25 15:33 Oxygen Delivery Room Air 03/04/25 15:33 MDM - Extremity Injury (Upper) MDM Narrative Medical decision making narrative: patient is a 34-year-old male with a left hand crush injury prior to arrival. We will do x-rays. X-rays were negative. Patient may need an MRI this week if continued problems. Imaging Data Attestation: I personally reviewed and interpreted this imaging study as follows: Radiologist's impression: X-ray left hand is negative for acute process Discharge Plan Discharge Clinical Impression: Contusion of hand, left Qualifiers: Encounter type: initial encounter Qualified Code(s): S60.222A - Contusion of left hand, initial encounter Patient Disposition: Home Condition: Stable Instructions: Contusion in Adults (ED) Additional Instructions: please follow-up with the primary doctor in the next week. I suggest an MRI of the left hand if continued problems at the end of this week. Use ibuprofen and Tylenol for pain. Be gentle to the left hand for the next 1-2 weeks. Patient Language: Croatian Prescriptions: No Action tamsulosin [Flomax] 0.4 mg capsule 0.4 mg PO DAILY Qty: 30 0RF hydrocodone-acetaminophen 5-325 mg tablet 1 tablet PO Q8H PRN (Reason: pain) Qty: 20 0RF Rx Instructions: 1-2 tabs per dose methylprednisolone [Medrol] 4 mg tablet 4 mg PO BID 3 Days Qty: 6 0RF levofloxacin 500 mg tablet 500 mg PO DAILY Qty: 7 0RF Follow-up/Referrals: Parag Joe MD [Primary Care Provider] - Time of Disposition: 17:07
== END 2025-03-04 17:41 | disposition home or self-care (01) ==
PROVIDERS: Emergency Provider Emergency Medicine; PCP Family Medicine
DX: S60.222A Contusion of left hand, initial encounter (principal); Z87.891 Personal history of nicotine dependence; W22.8XXA Striking against or struck by other objects, initial encounter
CPT/HCPCS: 73130; 99283

== ENCOUNTER 2025-09-22 08:10 | Emergency (ER) | payer BC, SELFPAY ==
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
--- OUTSIDE RECORDS SUMMARY | 2025-09-22 08:13 | XMS_ITS | Clinical Summary ---
Author Organization [facility] [employer] Address [address] [place] [address] Care Team Providers Care Manager News Name Role Phone Nano Klein PA-C Unavailable Source Comments [facility] [employer],non-owned Affiliates and Associated Physician Practices is amultiple site organization consisting of ambulatory clinics and hospital sitesin [place], [place], [place] and [place]. This disclosure is being madepursuant to the Care Everywhere program and may not contain all information available regarding this patient. Last updated 18.I Gotchu [employer] Allergies No known active allergies Medications * [...] of 3 - 19+ 3-dose series) 2007 PNEUMOCOCCAL VACCINE (1 of 2 - PCV) 2007 HPV VACCINE (1 - 3-dose SCDM series) 2015 DEPRESSION SCREENING 11/01/2024 COVID-19 VACCINE (1 - 2024-2 6 season) 2025 INFLUENZA VACCINE (#1) 2025 ZOSTER VACCINE (1 of 2) 2038 [...] Documents on File Type Date Recorded Patient Injection Wax Molder Expl anation Adv Directive/Living Will/POA 03/15/2017 * Full Code (Latest Code Status on File) Date Activated Date Inactivated Comments 04/15/2021 5:39 PM 04/20/2021 6:32 PM * Full Code Date Activated Date Inactivated Comments 07/21/2019 10:50 PM 07/22/2019 7:23 PM Care Teams Manager News Relationship Specialty Start Date End Date Klein, Nano J, MICHELLE [address] [place] [address] PCP - Attributed-[employer] Medicaid [place] 08/01/20
--- OUTSIDE RECORDS SUMMARY | 2025-09-22 08:13 | XMS_ITS | Clinical Summary ---
Author Organization [facility] Address [address] [place] [address] Care Team Providers Care Welder And Fitter Name Role Phone Ruiz Camarillo DO Primary Care Provider [phone] Allergies No known active allergies Medications amphetamine-dextroa [...] Date Generalized anxiety disorder 08/31/2022 Multiple sclerosis 08/27/2022 Social History Tobacco Use Types Packs/Day [...] Frequency of Binge Drinking Not on file 0411/2020 Sex and Gender Information Value Date Recorded Sex Assigned at Male 03/14/2025 10:24 AM CDT Legal Sex Male 7:29 PM CDT Gender Identity Not on file Sexual Orientation Not on file Last Filed Vital Signs Vital Sign Reading Time Taken Comments Blood Pressure 152/95 09/05/2023 7:35 AM CARD HANGER Pulse 58 09/05/2023 7:35 AM CARD HANGER Temperature 36.1 C (97 F) 09/05/2023 5:35 AM CARD HANGER Respiratory Rate 17 09/05/2023 7:35 AM CARD HANGER Oxygen Saturation 99% 09/05/2023 7:35 AM CARD HANGER Inhaled Oxygen Concentration - - Weight 117.9 kg (260 lb) 09/05/2023 5:35 AM CARD HANGER Height 182.9 cm (6') 09/05/2023 5:35 AM CARD HANGER Body Mass Index 35.26 09/05/2023 5:35 AM CARD HANGER Plan of Treatment Health Maintenance Due Date Last Done Comments Annual Physical 1991 Hepatitis B Vaccines (1 of 3 - 19+ 3-dose series) 2007 Pneumococcal Vaccine: Pediat rics (0 to 5 Years) and At-Risk Patients (6 to 49 Years) (1 of 2 - PCV) 2007 HPV Vaccines (1 - 3-dose SCD M series) 2015 PHQ-2 (Physician [place]) 11/01/2024 COVID-19 Vaccine ( - 2024-2 6 season) 2025 Influenza Adult (#1) 2025 DTaP, Tdap and Td Vaccines ( 2 - Td or Tdap) 12/05/2033 12/05/2023 Hepatitis C Completed 08/03/2022 Hepatitis A Vaccines Aged Out No long er eligible based [...] VE NON-REACT BRAN 08/05/2022 11:56 AM CDT [facility] Comment: ANTIBODIES TO HCV NOT DETECTED. DOES NOT EXCLUDE THE POSSIBILITY OF EXPOSURE TO HCV. 08/03/2022 10:3 3 AM CDT Mayra Fink DO LABORATORY Final Result [facility] [address] [place] [address], [place] [phone] [id number] from Last 3 Months or Most Recently Relevant to Health Maintenance Insurance [facility] MEDICAID Care Teams Welder And Fitter Relationship Specialty Start Date End Date Ruiz Camarillo DO [address] [place] [address] PCP - General FAMILY PRACTICE 08/13/22
[2025-09-22 08:17] VITALS: BP 140/77; PULSE 70; RESP 18; TEMP 36.4; O2SAT 99
--- NOTE | 2025-09-22 08:25 | ED_ITS ---
HPI - URI/Sore Throat General Chief Complaint: Upper Respiratory Infection Stated Complaint: URI/sinus patient presents to the [facility] with complaints of chills, headache, sinus pain, nasal congestion, pressure in ears, scratchy throat, productive cough that began 3-4 days ago. Patient noted yesterday felt significantly worse but reports has been taking Mucinex, pseudoephedrine, and [place] cold and flu with minimal relief of symptoms. No specific known sick contacts. Patient does report an increase in generalized weakness and dizziness but this is normal when he is ill with his MS. Denies known fever, chills, body aches, shortness of breath, nausea, vomiting, diarrhea. Related Data Allergies Allergy/AdvReac Type Severity Reaction Status Date / Time No Known Allergies Allergy Verified 09/22/25 08:18 Review of Systems Constitutional: Constitutional: Reports as per HPI, Denies chills, Reports fatigue, Denies fever(s) and Reports weakness Eyes: Eyes: Reports no additional eye complaints ENT: Reports as per HPI, Reports vertigo, Reports dizziness, Reports nasal congestion and Reports sore throat Cardiovascular: Cardiovascular: Reports no additional cardiovascular complaints Respiratory: Respiratory: Reports as per HPI, Reports chest congestion, Reports cough, Denies dyspnea and Denies wheezing Gastrointestinal: Gastrointestinal: Reports as per HPI, Denies abdominal pain, Denies diarrhea, Denies nausea and Denies vomiting Genitourinary: Genitourinary: Reports no additional male genitourinary complaints Musculoskeletal: Musculoskeletal: Reports as per HPI, Denies back pain and Denies myalgias Integumentary/Breasts: Skin/Breast: Reports as per HPI, Denies pruritus, Denies erythema and Denies rash Neurologic: Reports as per HPI, Reports vertigo, Reports dizziness, Reports headache(s), Denies numbness and Reports weakness Psychiatric: Psychiatric: Reports no additional psychiatric complaints Endocrine: Endocrine: Reports no additional endocrine complaints Hematologic/Lymphatic: Hematologic/Lymphatic: Reports no additional hematologic/lymphatic complaints Allergic/Immunologic: Allergic/Immunologic: Reports no additional allergic/immunologic complaints PMFSH Past Medical History Medical History Toothache Trigeminal neuralgia Multiple sclerosis Surgical History Surgical History History of inguinal hernia repair Family History Family History Mother Family history non-contributory Social History Social History Smoking packs per day: 1 Smoking cigarettes per day: 20.0 Years smoked: 15 Smoking pack-years: 15.00 Smoking status: Former smoker Tobacco type: cigarettes Substance use: never Living arrangements: with family Gender identity (if verbalized by the patient): Male Spiritual care concerns: No Exam Const: General: no acute distress and ill appearing Nutritional Appearance: well nourished Orientation/consciousness: patient oriented x3 Limitations: no limitations HENMT: Head: normal to inspection Ears: external ears normal and TM's abnormal bilaterally ( Dullness with no erythema) Face/Nose/Sinus: Normal external nose present and nares abnormal ( mild erythema and edema) Face and sinus: normal facial exam and sinuses nontender Mouth: Yes Normal oral and palatal mucosa present, Yes lip normal and Yes moist mucous membranes Throat: posterior oropharynx abnormal (mild erythema noted. ) Neck: Neck: normal visual inspection and no lymphadenopathy Chest: Chest palpation & inspection: normal inspection of the chest Resp: Effort & Inspection: normal respiratory effort Auscultation: no crackles, no rales, no rhonchi, no wheezes and diminished lung sounds Other: congested cough noted Cardio: Rate: regular rate Rhythm: regular rhythm Skin: General skin exam: normal color Rashes: no rashes Wounds: no wounds Neuro: General: patient oriented x3 Cranial nerves: Yes Nystagmus not present Speech: normal speech Gait exam (Neuro): Normal gait present Psych: Mental Status: mental status grossly normal Affect: normal affect Attitude: cooperative Course Course Level of Care: Express Care Visit Vital Signs Vital signs: Vital Signs Temperature 97.6 F 09/22/25 08:17 Pulse Rate 70 09/22/25 08:17 Respiratory Rate 18 09/22/25 08:17 Blood Pressure 140/77 09/22/25 08:17 Pulse Oximetry 99 09/22/25 08:17 Oxygen Delivery Room Air 09/22/25 08:17 Temperature 97.6 F 09/22/25 08:17 Pulse Rate 70 09/22/25 08:17 Respiratory Rate 18 09/22/25 08:17 Blood Pressure 140/77 09/22/25 08:17 Pulse Oximetry 99 09/22/25 08:17 Oxygen Delivery Room Air 09/22/25 08:17 MDM - URI/Sore Throat MDM Narrative Medical decision making narrative: given patient's medical history likely still viral in nature. Given timeline of patient's symptoms will send antibiotics to the pharmacy if symptoms do worsen in the next few days may begin nose but recommended not to start them if needed. The patient was evaluated by myself in the [facility]. History is obtained from patient who is an independent historian and physical exam was performed. Available medical records were reviewed at this time. Exam findings show no acute concerns or changes; patient is non-toxic appearing and is in no distress. Patient is appropriate for outpatient treatment and follow-up. I have evaluated and discussed social determinants of health with the patient that could potentially impact subsequent diagnosis and treatment plans. Differential diagnosis and treatment plan were discussed with the patient. Patient agrees with discussion and after shared medical decision making agrees with plan of care. All questions were answered to the patient's satisfaction. Differential Diagnosis Differential diagnosis: Likely upper respiratory infection, croup, otitis media, sinusitis, bronchitis, influenza and pharyngitis Medical Records Attestation: I reviewed the patient's medical records. Discharge Plan Discharge Clinical Impression: Upper respiratory infection Patient Disposition: Home Condition: Stable Instructions: Antibiotic Form, Upper Respiratory Infection (ED), Acute Bronchitis (ED) Additional Instructions: Viral illness may last between 7-12days; antibiotic is NOT recommended at this time. Recommend antihistamine such as Benadryl at night time and Claritin/Zyrtec/Rubi during the day. Also using steroid nasal spray like Flonase can help with symptoms and congestion. Using sudafed for significant congestion will also give some relief. Cough syrup may cause drowsiness; avoid driving or take it at night time. Use inhaler as needed for cough, wheezing, shortness of breath or chest tightness. Also, recommend symptomatic treatment includes: rest, fluids, increase humidity of the air at home. Recommend Acetaminophen or nonsteroidal anti-inflammatory agents(NSAIDs) as directed in the bottle to reduce fever and/pain/headache. Avoid smoking/second-hand smoke. Limit visits to areas with large crowds. Frequent hand washing or hand multifold operator is one of the best ways to prevent spread of infection. Please schedule a followup visit with your personal physician for further evaluation and treatment within 3-5days. Including recheck and discussion of your blood pressure. If your symptoms persist, change or worsen significantly before you can contact your personal physician then please, without delay, go to the emergency department for further evaluation. As we discussed will send in antibiotic to the pharmacy I would not recommend starting this until you are around 7-10 days symptoms and if you are not feeling better. Patient Language: [place] Prescriptions: New benzonatate 200 mg capsule 200 mg PO TID PRN (Reason: cough) Qty: 30 0RF amoxicillin 875 mg tablet 875 mg PO Q12H Qty: 20 0RF prednisone 10 mg tablet 10 mg PO DIRECTED Qty: 30 0RF Rx Instructions: take 4 tablets for 3 days, 3 tablets for 3 days, 2 tablets for 3 days, 1 tablet for 3 days albuterol sulfate [Ventolin HFA] 90 mcg/actuation HFA aerosol inhaler 2 puff inhalation QID PRN (Reason: shortness of breath or wheezing) Qty: 8.5 0RF Follow-up/Referrals: Parag Joe MD [Primary Care Provider, Internal Medicine] Time of Disposition: 08:35
== END 2025-09-22 08:38 | disposition home or self-care (01) ==
PROVIDERS: Emergency Provider Nurse Practitioner Family; PCP Family Medicine
DX: J06.9 Acute upper respiratory infection, unspecified (principal); G35.D Multiple sclerosis, unspecified; Z87.891 Personal history of nicotine dependence
CPT/HCPCS: 99213; G0463